=== PATIENT | male | born 1975 | race African-American/Black ===

== ENCOUNTER 2016-09-12 07:01 | Observation (INO) | payer SELFPAY ==
[2016-09-12] VITALS (13 sets, daily range): BP systolic 188–225; BP diastolic 115–148; PULSE 70–79; RESP 16–22; TEMP 97.8–98.4; O2SAT 93–99
[~2016-09-12] VITALS: Ht 175.3 cm; Wt 75.0 kg
[~2016-09-12 07:01] MED LIST: CLON-352 PO; HYDR12.56 PO; LISI2.5T55 PO
[2016-09-12] MEDS ORDERED: LABE300T PO (07:21)
[2016-09-12] MEDS ORDERED: CLON0.3T PO (07:21)
[2016-09-12] MEDS ORDERED: HYDR25TA35 PO (07:21)
--- NOTE | 2016-09-12 07:36 | PD ---
HPI Chief Complaint: Abnormal Results Time Seen by Provider: 07:31 Travel History International Travel<30 days: No Contact w/Intl Traveler<30days: No Traveled to known affect area: No History of Present Illness HPI 40-year-old male with ESRD on HD (,,), here claiming that he needs dialysis. His last dialysis was on which was 4 days ago. He was in [place] and is here visiting. He has no local physicians. He is complaining of some shortness of breath. No chest pain. No fevers or chills. PFSH Past Medical History Hx Anticoagulant Therapy: No Autoimmune Disease: No Cancer: No Cardiovascular Problems: Yes (HTN ) Chest Pain: Yes Congestive Heart Failure: Yes Diabetes: No Patient Takes Glucophage: No Dialysis: Yes (FISTULA IN LEFT ARM) Diminished Hearing: No Endocrine: No Genitourinary: Yes Hypertension: Yes Immune Disorder: No Musculoskeletal: No Neurologic: No Psychiatric: No Reproductive: No Respiratory: Yes Renal Failure: Yes Seizures: Yes Tetanus Vaccination: Unknown Influenza Vaccination: Yes Past Surgical History Cardiac Surgery: Yes ("TOOK FLUID IN HIS HEART"(PERICARDIOCENTHESIS??)) Other Surgery: Yes (SHUNT TO L ARM ) Social History Alcohol Use: No Tobacco Use: No (QUIT A YEAR AGO ) Substance Use: Yes (MARIJUANA SOCIALLY- YESTERDAY ) Allergies-Medications (Allergen,Severity, Reaction): Coded Allergies: No Known Allergies (Verified , 09/12/16) Reported Meds & Prescriptions Reported Meds & Active Scripts Active Reported Hydralazine (Hydralazine HCl) 25 Mg Tab 25 Mg PO BID Take with a meal Labetalol (Labetalol HCl) 300 Mg Tab 300 Mg PO BID Clonidine (Clonidine HCl) 0.3 Mg Tab 0.3 Mg PO TID Review of Systems Except as stated in HPI: all other systems reviewed are Neg Physical Exam Narrative GENERAL: Well-developed, well-nourished, comfortable, no acute distress. SKIN: Warm and dry. HEAD: Atraumatic. Normocephalic. EYES: Pupils equal and round. No scleral icterus. No injection or drainage. ENT: Mucous membranes pink and moist. NECK: Trachea midline. No JVD. CARDIOVASCULAR: Regular rate and rhythm. Left forearm dialysis fistula with thrill and bruit. RESPIRATORY: No accessory muscle use. Clear to auscultation. Breath sounds equal bilaterally. GASTROINTESTINAL: Abdomen soft, non-tender, nondistended. MUSCULOSKELETAL: No obvious deformities. No clubbing. No cyanosis. No edema. NEUROLOGICAL: Awake and alert. No obvious cranial nerve deficits. Motor grossly within normal limits. Normal speech. PSYCHIATRIC: Appropriate mood and affect; insight and judgment normal. Data Data Last Documented VS Vital Signs Date Time Temp Pulse Resp B/P Pulse Ox O2 Delivery O2 Flow Rate FiO2 09/12/16 07:28 75 Room Air 09/12/16 07:04 98.2 20 219/137 96 Orders Basic Metabolic Panel (Bmp) (09/12/16 07:34) Complete Blood Count With Diff (09/12/16 07:34) Prothrombin Time / Inr (Pt) (09/12/16 07:34) Act Partial Throm Time (Ptt) (09/12/16 07:34) Iv Access Insert/Monitor (09/12/16 07:34) Ecg Monitoring (09/12/16 07:34) Oximetry (09/12/16 07:34) Sodium Chloride 0.9% Flush (Ns Flush) (09/12/16 07:45) Chest, Single Ap (09/12/16 ) Protein Corrected Calcium(Pcc) (09/12/16 08:04) Labs Laboratory Tests Test 09/12/16 08:04 White Blood Count 6.2 TH/MM3 Red Blood Count 2.40 MIL/MM3 Hemoglobin 7.9 GM/DL Hematocrit 23.1 % Mean Corpuscular Volume 96.4 FL Mean Corpuscular Hemoglobin 32.9 PG Mean Corpuscular Hemoglobin 34.2 % Concent Red Cell Distribution Width 18.7 % Platelet Count 133 TH/MM3 Mean Platelet Volume 8.7 FL Neutrophils (%) (Auto) 69.2 % Lymphocytes (%) (Auto) 16.7 % Monocytes (%) (Auto) 5.8 % Eosinophils (%) (Auto) 7.2 % Basophils (%) (Auto) 1.1 % Neutrophils # (Auto) 4.3 TH/MM3 Lymphocytes # (Auto) 1.0 TH/MM3 Monocytes # (Auto) 0.4 TH/MM3 Eosinophils # (Auto) 0.5 TH/MM3 Basophils # (Auto) 0.1 TH/MM3 CBC Comment DIFF FINAL Differential Comment Prothrombin Time 11.5 SEC Prothromb Time International 1.0 RATIO Ratio Activated Partial 29.4 SEC Thromboplast Time Sodium Level 140 MEQ/L Potassium Level 5.7 MEQ/L Chloride Level 105 MEQ/L Carbon Dioxide Level 20.5 MEQ/L Anion Gap 15 MEQ/L Blood Urea Nitrogen 116 MG/DL Creatinine 15.19 MG/DL Estimat Glomerular Filtration 4 ML/MIN Rate Random Glucose 89 MG/DL Calcium Level 7.3 MG/DL Protein Corrected Calcium 7.4 MG/DL Total Protein 7.0 GM/DL MDM Medical Decision Making Medical Screen Exam Complete: Yes Emergency Medical Condition: Yes Medical Record Reviewed: Yes Differential Diagnosis ESRD, electrolyte abnormality Narrative Course Vital signs show heart rate 79, blood pressure 219/137, pulse ox 96% on room air , oral temp of 98.2F. CBC shows WBC 6.2, hemoglobin 7.9, hematocrit 23.1, platelets 133. BMP is remarkable for potassium 5.7, bicarbonate 20.5, BUN 116, creatinine 15.12 , GFR 4 Chest x-ray shows cardiomegaly with mild to moderate pulmonary congestion. Case discussed with on-call web developer programmer Dr. Manjarrez. He would like the patient to be admitted for overnight observation and will arrange for dialysis today. Case discussed with medical residents. The patient will be admitted to their service under Dr. Coulter. Patient was made aware of plan. Diagnosis Primary Impression: End stage renal disease Additional Impressions: Hyperkalemia Pulmonary edema Qualified Code: J81.0 - Acute pulmonary edema Admitting Information Admitting Physician Requests: Observation Mitul Harris MD Sep 12, 2016 07:36
[2016-09-12] MEDS ORDERED: SODIUM CHLORIDE 0.9% FLUSH 5 ML FLUSH IVF PRN ×2 (07:45→10:30)
--- NOTE | 2016-09-12 07:57 | RADRPT ---
EXAM DATE/TIME: 09/12/2016 07:34 [facility] COMPARISON: No previous studies available for comparison. INDICATIONS : Shortness of breath. MEDICAL HISTORY : None. SURGICAL HISTORY : None. ENCOUNTER: Initial ACUITY: 3 days PAIN SCORE: 0/10 LOCATION: Bilateral chest FINDINGS: The heart is markedly enlarged. There is generalized interstitial vascular prominence with developing airspace disease. There is no significant pleural effusion. Osseous structures are intact. CONCLUSION: Cardiomegaly with mild/moderate pulmonary congestion. Juanpablo Nixon MD on September 12, 2016 at 7:54 Board Certified Radiologist. This report was verified electronically.
[2016-09-12 08:28] LABS: AUTOMATED NEUTROPHIL # 4.3 TH/MM3 (1.8-7.7); BASOPHIL # 0.1 TH/MM3 (0-0.2); BASOPHIL % 1.1 % (0.0-2.0); EOSINOPHIL # 0.5 TH/MM3 (0-0.4); EOSINOPHIL % 7.2 % (0.0-4.0); HEMATOCRIT 23.1 % (39.0-51.0); HEMO FLAGS DIFF FINAL; LYMPH % 16.7 % (9.0-44.0); MEAN CELL VOLUME 96.4 FL (80.0-100.0); MEAN CORPUSCULAR HEMOGLOBIN 32.9 PG (27.0-34.0); MEAN CORPUSCULAR HGB CONC 34.2 % (32.0-36.0); MONO % 5.8 % (0.0-8.0); NEUT % 69.2 % (16.0-70.0); PLATELET COUNT 133 TH/MM3 (150-450); RED CELL DISTRIBUTION WIDTH 18.7 % (11.6-17.2); WHITE BLOOD COUNT 6.2 TH/MM3 (4.0-11.0)
[2016-09-12 08:37] LABS: APTT (PATIENT) 29.4 SEC (24.3-30.1); PROTHROMBIN TIME - PATIENT 11.5 SEC (9.8-11.6)
[2016-09-12 09:04] LABS: BICARBONATE 20.5 MEQ/L (21.0-32.0); POTASSIUM 5.7 MEQ/L (3.5-5.1)
[2016-09-12 09:32] LABS: CALCIUM-PROTEIN CORRECTED 7.4 MG/DL (8.5-10.1)
--- NOTE | 2016-09-12 10:03 | HHI.HP ---
[facility] Service Family Medicine Primary Care Physician Non-Staff Admission Diagnosis ESRD, hyperkalemia, pulmonary edema Diagnoses: International Travel<30 Days: No Contact w/Intl Traveler<30days: No Known Affected Area: No History of Present Illness This is a 40-year-old male with past medical history significant for uncontrolled hypertension that has resulted in end-stage renal disease. He currently receives dialysis on Monday, , and Saturdays. He has recently traveled from [facility] to [facility] to visit friends and relatives. He tried to get set up for dialysis as he was due for one on Monday, however the place that he was trying to get into would not take him until Monday. He says he has been over 4 days without his dialysis. For the last 2 days he's been feeling generalized weakness and his legs felt heavy. He has also noticed the last 2 days increased swelling in his lower extremities. He felt that he he needed dialysis sooner than Monday and decided to come into the hospital for evaluation. He reports that his blood pressure has been poorly controlled up until he started his 3 medications. Since being on history medications he says he does okay as long as he eats an appropriate diet with low salt content. (Scotty Leggett MD R2) Review of Systems Constitutional: DENIES: Fever, Weight gain, Weight loss, Dizziness Endocrine: DENIES: Heat/cold intolerance Eyes: DENIES: Blurred vision, Vision loss, Double Vision Ears, nose, mouth, throat: COMPLAINS OF: Running Nose, DENIES: Tinnitus, Hearing loss, Nasal discharge, Throat pain, Hoarseness Respiratory: COMPLAINS OF: Shortness of breath, DENIES: Cough, Wheezing, Sputum production Cardiovascular: COMPLAINS OF: Lower Extremity Edema, DENIES: Chest pain Gastrointestinal: DENIES: Abdominal pain, Black stools, Bloody stools, Constipation, Nausea, Vomiting Genitourinary: DENIES: Urinary incontinence, Dysuria Musculoskeletal: DENIES: Joint pain, Muscle aches, Back pain Integumentary: DENIES: Rash Hematologic/lymphatic: DENIES: Bruising, Lymphadenopathy Immunologic/allergic: DENIES: Eczema Neurologic: COMPLAINS OF: Localized weakness, DENIES: Abnormal gait, Headache , Seizures, Poor Balance Psychiatric: DENIES: Anxiety, Confusion, Depression (Scotty Leggett MD R2) Past Family Social History Past Medical History HTN End Stage Kidney Disease on Dialysis (9 years) Past Surgical History Fluid off his heart Fistula in the Left arm Reported Medications Reported Meds & Active Scripts Active Reported Hydralazine (Hydralazine HCl) 25 Mg Tab 25 Mg PO BID Take with a meal Labetalol (Labetalol HCl) 300 Mg Tab 300 Mg PO BID Clonidine (Clonidine HCl) 0.3 Mg Tab 0.3 Mg PO TID (Scotty Leggett MD R2) Allergies: Coded Allergies: No Known Allergies (Verified , 09/12/16) Active Ordered Medications Current Medications Medications (Trade) Dose Ordered Sig/Luis Daniel Route Start Time Stop Time Status Last Admin (NS Flush) 2 ml UNSCH PRN IVF 09/12/16 07:45 Family History HTN Diabetes Mellitus Social History Live in [place] here visiting Usual to [employer] Currently unemployed Smoke Marijuana Use to drink alcohol quit 13 year ago Use to smoke cigarettes quit 13 years ago (Scotty Leggett MD R2) Physical Exam Vital Signs Vital Signs Date Time Temp Pulse Resp B/P Pulse Ox O2 Delivery O2 Flow Rate FiO2 09/12/16 07:28 75 Room Air 09/12/16 07:04 98.2 79 20 219/137 96 Physical Exam GENERAL: Well-developed, well-nourished, comfortable, no acute distress. SKIN: Warm and dry. HEAD: Atraumatic. Normocephalic. EYES: Pupils equal and round. No scleral icterus. No injection or drainage. ENT: Mucous membranes pink and moist. NECK: Trachea midline. No JVD. CARDIOVASCULAR: Regular rate and rhythm, holosystolic murmur. Left forearm dialysis fistula with thrill and bruit. RESPIRATORY: Decreased auscultation in the lower lobes, some noticeable rhonchi in the lower lobes, upper lobes clear to auscultation bilaterally GASTROINTESTINAL: Abdomen soft, non-tender, nondistended. MUSCULOSKELETAL: No obvious deformities. No clubbing. No cyanosis. 2+ pitting edema in the lower extremities NEUROLOGICAL: Awake and alert. No obvious cranial nerve deficits. Motor grossly within normal limits. Normal speech. PSYCHIATRIC: Appropriate mood and affect; insight and judgment normal. Laboratory Laboratory Tests Test 09/12/16 08:04 White Blood Count 6.2 Red Blood Count 2.40 Hemoglobin 7.9 Hematocrit 23.1 Mean Corpuscular Volume 96.4 Mean Corpuscular Hemoglobin 32.9 Mean Corpuscular Hemoglobin 34.2 Concent Red Cell Distribution Width 18.7 Platelet Count 133 Mean Platelet Volume 8.7 Neutrophils (%) (Auto) 69.2 Lymphocytes (%) (Auto) 16.7 Monocytes (%) (Auto) 5.8 Eosinophils (%) (Auto) 7.2 Basophils (%) (Auto) 1.1 Neutrophils # (Auto) 4.3 Lymphocytes # (Auto) 1.0 Monocytes # (Auto) 0.4 Eosinophils # (Auto) 0.5 Basophils # (Auto) 0.1 CBC Comment DIFF FINAL Differential Comment Prothrombin Time 11.5 Prothromb Time International 1.0 Ratio Activated Partial 29.4 Thromboplast Time Sodium Level 140 Potassium Level 5.7 Chloride Level 105 Carbon Dioxide Level 20.5 Anion Gap 15 Blood Urea Nitrogen 116 Creatinine 15.19 Estimat Glomerular Filtration 4 Rate Random Glucose 89 Calcium Level 7.3 Protein Corrected Calcium 7.4 Total Protein 7.0 (Scotty Leggett MD R2) Result Diagram: 09/12/1680309/12/16 0804 Assessment and Plan Assessment and Plan This is a 40-year-old [place] male past medical history is negative for poorly controlled hypertension resulting in end-stage renal disease. Due for dialysis at this time Code Status Full code Discussed Condition With WDW: Dr. Coulter (Scotty Leggett MD R2) Attending Attestation THIS CASE WAS DISCUSSED WITH THE RESIDENT PHYSICIAN. I HAVE REVIEWED THE RECORD AND AGREE WITH THE ABOVE NOTE AND PLAN OF CARE WAS DISCUSSED. I HAVE AUTHORIZED THE ORDER FOR PLACEMENT IN OUT-PATIENT OBSERVATION STATUS. (Carlos Coulter MD) Problem List: (1) End stage renal disease Status: Chronic Plan: Patient is end-stage renal disease due to history of uncontrolled hypertension, recently traveled from [facility] to [place]. Receives dialysis on Monday, , Saturdays. Missed his Monday dialysis, and currently in need of dialysis at this time. * Consulted nephrology recommendations appreciated * Admit to observation * Plan for dialysis DONNIE (2) Hyperkalemia Status: Acute Plan: Per labs patient found to be hyperkalemic at 5.7. Has missed a round of dialysis, with end-stage renal disease. * Plan for correction with dialysis * Place on telemetry * Repeat BMP following dialysis * CBC, CMP ordered for the a.m. (3) Hypertension Status: Chronic Plan: Patient has a long-standing history of hypertension. * Continue home medications of hydralazine 25 mg by mouth twice a day * Continue home medication of clonidine 0.3 mg by mouth 3 times a day * Continue home medication of labetalol 30 mg by mouth twice a day (4) Pulmonary edema Status: Acute Plan: Per chest x-ray found to have pulmonary congestion bilaterally in the lower lobes. Congestion heard on physical exam. Continue to monitor with physical exam. * Plan for correction with dialysis (5) Nutrition, metabolism, and development symptoms Status: Acute Plan: Out of bed ad pilar. Vitals every 4 Placed on telemetry Renal diet Fluid restrict to 1.5 L DVT prophylaxis with SCDs Encourage incentive spirometry CODE STATUS: Full code Disposition: Upon improvement after dialysis (Scotty Leggett MD R2) Problem Qualifiers (1) Pulmonary edema: Qualified Code: J81.0 - Acute pulmonary edema Scotty Leggett MD R2 Sep 12, 2016 10:03 Carlos Coulter MD Sep 12, 2016 19:38
[2016-09-12] MEDS ORDERED: ACETAMINOPHEN 325 MG TAB PO PRN ×2 (10:15→10:30)
[2016-09-12] MEDS ORDERED: ONDANSETRON HCL 4 MG/2 ML VIAL IVP PRN (10:15)
[2016-09-12] MEDS ORDERED: SODIUM CHLORIDE 0.9% FLUSH 5 ML FLUSH FLUSH PRN (10:15)
[2016-09-12] MEDS ORDERED: NALOXONE HCL 0.4 MG/ML AMP IV PRN (10:15)
[2016-09-12] MEDS ORDERED: SODIUM CHLOR 0.9% 1000 ML INJ 1,000 ML IV PRN ×3 (10:17)
[2016-09-12] MEDS ORDERED: EPOETIN ALFA 10,000 UNITS/ML VIAL IV PRN (10:30)
[2016-09-12] MEDS ORDERED: HEPARIN SODIUM - IV 10,000 UNITS/10 ML VIAL IVF PRN (10:30)
[2016-09-12] MEDS ORDERED: ONDANSETRON HCL 4 MG/2 ML VIAL IV PRN (10:30)
[2016-09-12] MEDS ORDERED: NITROGLYCERIN 0.4 MG SL 25 TABS/BTL SL PRN (10:30)
[2016-09-12] MEDS ORDERED: MANNITOL 12.5 GM/50 ML VIAL IV PRN (10:30)
[2016-09-12] MEDS ORDERED: ALBUMIN HUMAN 25% 25 GM/100 ML BAGP IV PRN (10:30)
[2016-09-12] MEDS ORDERED: diphenhydrAMINE HCL 25 MG CAP PO PRN (10:30)
[2016-09-12] MEDS ORDERED: GELATIN 12 MM/7 MM FOAM TOP PRN (10:30)
[2016-09-12] MEDS: DOCUSATE SODIUM 100 MG CAP PO SCH ×2 (11:00→22:20)
--- NOTE | 2016-09-12 11:25 | PD.CONS ---
HPI Service Nephrology Consult Requested By Dr. Leggett Reason for Consult ESRD Primary Care Physician Non-Staff History of Present Illness Patient is a 40-year-old male with a history of end-stage renal disease due to hypertension who is from [facility] and is a visitor, he did not make any arrangements for hemodialysis and misses dialysis on Monday, today he came in now with increasing shortness of breath, his dialysis today was Monday, and Monday, chest x-ray done shows some pulmonary congestion, he does have peripheral edema present as well. Review of Systems Constitutional: COMPLAINS OF: Fatigue Respiratory: COMPLAINS OF: Shortness of breath Cardiovascular: COMPLAINS OF: Lower Extremity Edema Psychiatric: COMPLAINS OF: Anxiety Past Family Social History Allergies: Coded Allergies: No Known Allergies (Verified , 09/12/16) Past Medical History End-stage renal disease plan on hemodialysis Anemia Hypertension Secondary hyperparathyroidism Compliance issues Past Surgical History A fistula left forearm Reported Medications Reported Meds & Active Scripts Active Reported Hydralazine (Hydralazine HCl) 25 Mg Tab 25 Mg PO BID Take with a meal Labetalol (Labetalol HCl) 300 Mg Tab 300 Mg PO BID Clonidine (Clonidine HCl) 0.3 Mg Tab 0.3 Mg PO TID Family History He states there is father was on dialysis and the one brother has kidney issues Social History He denies smoking or alcohol use Physical Exam Vital Signs Vital Signs Date Time Temp Pulse Resp B/P Pulse Ox O2 Delivery O2 Flow Rate FiO2 09/12/16 07:28 75 Room Air 09/12/16 07:04 98.2 79 20 219/137 96 Physical Exam GENERAL: Well-nourished, well-developed patient. SKIN: Warm and dry. HEAD: Normocephalic. EYES: No scleral icterus. No injection or drainage. NECK: Supple, trachea midline. No JVD or lymphadenopathy. CARDIOVASCULAR: Regular rate and rhythm without murmurs, gallops, or rubs. RESPIRATORY: Breath sounds equal bilaterally. No accessory muscle use. GASTROINTESTINAL: Abdomen soft, non-tender, nondistended. EXTREMITIES: No cyanosis, 2 plus edema. Left forearm AV fistula NEUROLOGICAL: Awake, alert, and oriented x 3. Non-focal. Laboratory Laboratory Tests Test 09/12/16 08:04 White Blood Count 6.2 Red Blood Count 2.40 Hemoglobin 7.9 Hematocrit 23.1 Mean Corpuscular Volume 96.4 Mean Corpuscular Hemoglobin 32.9 Mean Corpuscular Hemoglobin 34.2 Concent Red Cell Distribution Width 18.7 Platelet Count 133 Mean Platelet Volume 8.7 Neutrophils (%) (Auto) 69.2 Lymphocytes (%) (Auto) 16.7 Monocytes (%) (Auto) 5.8 Eosinophils (%) (Auto) 7.2 Basophils (%) (Auto) 1.1 Neutrophils # (Auto) 4.3 Lymphocytes # (Auto) 1.0 Monocytes # (Auto) 0.4 Eosinophils # (Auto) 0.5 Basophils # (Auto) 0.1 CBC Comment DIFF FINAL Differential Comment Prothrombin Time 11.5 Prothromb Time International 1.0 Ratio Activated Partial 29.4 Thromboplast Time Sodium Level 140 Potassium Level 5.7 Chloride Level 105 Carbon Dioxide Level 20.5 Anion Gap 15 Blood Urea Nitrogen 116 Creatinine 15.19 Estimat Glomerular Filtration 4 Rate Random Glucose 89 Calcium Level 7.3 Protein Corrected Calcium 7.4 Total Protein 7.0 Result Diagram: 09/12/16 0804 09/12/16 0804 Imaging Last Impressions Chest X-Ray 09/12/16 0000 Signed Impressions: Service Date/Time: Monday, September 12, 2016 07:34 - CONCLUSION: Cardiomegaly with mild/moderate pulmonary congestion. Juanpablo Nixon MD Assessment and Plan Problem List: (1) End stage renal disease Plan: Patient will need to hemodialysis and this has been arranged for today will continue to monitor his progress and he will be On Monday, Monday and Monday schedule, he has not made outpatient arrangements and he will need to social and political studies professor help to set up hemodialysis \ seen at hemodialysis 5 L uf. (2) Hyperkalemia Plan: He will need to do hemodialysis (3) Pulmonary edema Plan: Hemodialysis will correct this issue as well (4) Hypertension Plan: Continue to monitor while in the hospital Problem Qualifiers (1) Pulmonary edema: Qualified Code: J81.0 - Acute pulmonary edema Cole Manjarrez MD Sep 12, 2016 11:25
[2016-09-12] MEDS: cloNIDine HCL 0.1 MG TAB PO PRN ×2 (11:30→16:00)
[2016-09-12] MEDS ORDERED: LABETALOL HCL 100 MG/20 ML VIAL IV PRN (12:00)
[2016-09-12] MEDS ORDERED: hydrALAZINE HCL 20 MG/ML VIAL IV PRN (12:00)
[2016-09-12] MEDS: cloNIDine HCL 0.3 MG TAB PO SCH ×2 (13:00→17:28)
[2016-09-12] MEDS ORDERED: LABETALOL HCL 300 MG TAB PO SCH (21:00)
[2016-09-12] MEDS ORDERED: SODIUM CHLORIDE 0.9% FLUSH 5 ML FLUSH FLUSH SCH (21:00)
[2016-09-12] MEDS ORDERED: hydrALAZINE HCL 25 MG TAB PO SCH (21:00)
--- NOTE | 2016-09-13 00:38 | PD.AMA ---
Against Medical Advice Note Discharge Disposition: Against Medical Advice Pt Condition on Discharge: Stable AMA Statement Patient Jasmyn Alicia has decided to leave the hospital against medical advice. This patient has the capacity to refuse care and understands the risks of leaving, including permanent disability and/or , and has had an opportunity to ask questions about his condition. The patient has been informed that he may return for care at any time, and follow up has been advised. Conor Casanova MD R1 Sep 13, 2016 00:38
== END 2016-09-13 00:07 | disposition left against medical advice (07) ==
LOC: NEPC 07:01 → NEDA 09:56 → NEPGCP 12:51
PROVIDERS: ADMIT Family Medicine; ATTEND Family Medicine
DX: N18.6 End stage renal disease (principal); I12.0 Hypertensive chronic kidney disease with stage 5 chronic kidney disease or end stage renal disease; E87.5 Hyperkalemia; J81.0 Acute pulmonary edema; I50.9 Heart failure, unspecified; F12.90 Cannabis use, unspecified, uncomplicated; Z99.2 Dependence on renal dialysis; Z87.891 Personal history of nicotine dependence; Z91.19 Patient's noncompliance with other medical treatment and regimen
CPT/HCPCS: 71010; 80048; 80074; 84155; 85025; 85610; 85730; 90935; 94150; 96374; 99285; G0378; J0360; Q4081; G0257

== ENCOUNTER 2016-09-14 12:12 | Emergency (ER) | payer SELFPAY ==
[~2016-09-14] VITALS: Ht 175.3 cm; Wt 75.0 kg
[~2016-09-14 12:12] MED LIST changes: -CLON-352 PO; +CLON0.3T PO; -HYDR12.56 PO; +HYDR25TA35 PO; +LABE300T PO; -LISI2.5T55 PO
[2016-09-14 12:15] VITALS: BP 197/116; PULSE 68; RESP 16; TEMP 97.7; O2SAT 95
--- NOTE | 2016-09-14 13:06 | PD ---
HPI Chief Complaint: Medical Clearance Time Seen by Provider: 12:59 Travel History International Travel<30 days: No Contact w/Intl Traveler<30days: No Traveled to known affect area: No History of Present Illness HPI This patient states that she was supposed to get dialyzed today at 10 AM and his [facility] but he didn't have a ride to get to [place] for dialysis so he came to the emergency room to get dialyzed. He is breathing well. No shortness of breath. Symptoms severity is mild PFSH Past Medical History Hx Anticoagulant Therapy: No Autoimmune Disease: No Blood Disorders: No Cancer: No Cardiovascular Problems: Yes (HTN ) Chest Pain: Yes Congestive Heart Failure: Yes Diabetes: No Dialysis: Yes (FISTULA IN LEFT ARM) Diminished Hearing: No Endocrine: No Genitourinary: Yes (ESRD) Hypertension: Yes Immune Disorder: No Musculoskeletal: No Neurologic: No Psychiatric: No Reproductive: No Respiratory: No Renal Failure: Yes Seizures: Yes Tetanus Vaccination: Unknown Influenza Vaccination: Yes Past Surgical History Cardiac Surgery: Yes ("TOOK FLUID IN HIS HEART"(PERICARDIOCENTHESIS??)) Other Surgery: Yes (SHUNT TO L ARM ) Social History Alcohol Use: No Tobacco Use: No (QUIT A YEAR AGO ) Substance Use: Yes (MARIJUANA daily) Allergies-Medications (Allergen,Severity, Reaction): Coded Allergies: No Known Allergies (Verified , 09/14/16) Reported Meds & Prescriptions Reported Meds & Active Scripts Active Reported Hydralazine (Hydralazine HCl) 25 Mg Tab 25 Mg PO BID Take with a meal Labetalol (Labetalol HCl) 300 Mg Tab 300 Mg PO BID Clonidine (Clonidine HCl) 0.3 Mg Tab 0.3 Mg PO TID Review of Systems HENT: No: Headaches Cardiovascular: No: Chest Pain or Discomfort Respiratory: No: Cough Gastrointestinal: No: Diarrhea Physical Exam Narrative RESPIRATORY: Respiratory effort unlabored, no retractions or use of accessory muscles. Breath sounds are clear and symmetric. SKIN: Inspection shows no rash or ulcers. Palpation shows no induration or nodules. Data Data Last Documented VS Vital Signs Date Time Temp Pulse Resp B/P Pulse Ox O2 Delivery O2 Flow Rate FiO2 09/14/16 12:43 18 20 09/14/16 12:15 97.7 197/116 95 MDM Medical Decision Making Medical Screen Exam Complete: Yes Emergency Medical Condition: Yes Medical Record Reviewed: Yes Differential Diagnosis Noncompliance, skipped dialysis Narrative Course I have reviewed the patient's electronic medical record. Patient left AGAINST MEDICAL ADVICE from the hospital yesterday after getting dialyzed on Monday I don't think the patient needs emergent dialysis right now. Patient had dialysis set up and he should call there and see if they can do it later today or switch to tomorrow. Patient immediately became hostile in his demeanor. Security escorted him out. I don't feel it is appropriate for him to ignore his outpatient arrangements and come to the emergency room and demand dialysis. Diagnosis Primary Impression: Malingering Additional Instructions: Follow up with their proper dialysis arrangements Med/Other Pt SpecificInfo: Other Disposition: 01 DISCHARGE HOME Condition: Stable Ko Ho MD Sep 14, 2016 13:05
== END 2016-09-14 13:28 | disposition home or self-care (01) ==
LOC: NEPB 12:12
DX: I12.0 Hypertensive chronic kidney disease with stage 5 chronic kidney disease or end stage renal disease (principal); N18.6 End stage renal disease; Z99.2 Dependence on renal dialysis; Z76.5 Malingerer [conscious simulation]
CPT/HCPCS: 99282

== ENCOUNTER 2016-09-16 05:41 | Emergency (ER) | payer SELFPAY ==
[2016-09-16 05:44] VITALS: BP 228/126; PULSE 68; RESP 20; TEMP 97.9; O2SAT 96
[2016-09-16] MEDS ORDERED: HYDR50TA15 PO (17:43)
== END 2016-09-16 07:41 | disposition left against medical advice (07) ==
LOC: NEPC 05:41
DX: I10 Essential (primary) hypertension (principal)
CPT/HCPCS: 99281

== ENCOUNTER 2016-09-16 08:28 | Inpatient (IN) | payer SELFPAY ==
[~2016-09-16] VITALS: Ht 172.7 cm; Wt 80.0 kg
[2016-09-16 08:30] VITALS: BP 204/119; PULSE 64; RESP 20; TEMP 97.5; O2SAT 95
[2016-09-16 09:30] VITALS: BP 201/123; PULSE 63; RESP 17; O2SAT 95
--- NOTE | 2016-09-16 09:34 | RADRPT ---
EXAM DATE/TIME: 09/16/2016 09:19 [facility] COMPARISON: CHEST SINGLE AP, September 12, 2016, 7:34. INDICATIONS : Chest pain and shortness of breath. MEDICAL HISTORY : None. SURGICAL HISTORY : None. ENCOUNTER: Initial ACUITY: 2 days PAIN SCORE: 4/10 LOCATION: Chest, midline. FINDINGS: PA and lateral views of the chest. Decrease in bilateral right greater than left perihilar opacity. P ersistent cardiac silhouette enlargement. No evidence of pleural effusion or pneumothorax. CONCLUSION: Decrease in bilateral pulmonary opacity likely representing decreased pulmonary edema. Cardiac silhou ette enlargement again noted. Humberto Emanuel MD on September 16, 2016 at 9:31 Board Certified Radiologist. This report was verified electronically.
[2016-09-16 09:48] LABS: AUTOMATED NEUTROPHIL # 4.1 TH/MM3 (1.8-7.7); BASOPHIL # 0.1 TH/MM3 (0-0.2); BASOPHIL % 1.1 % (0.0-2.0); EOSINOPHIL # 0.1 TH/MM3 (0-0.4); EOSINOPHIL % 2.4 % (0.0-4.0); HEMATOCRIT 25.9 % (39.0-51.0); HEMO FLAGS DIFF FINAL; LYMPH % 15.5 % (9.0-44.0); LYMPHOCYTE # 0.8 TH/MM3 (1.0-4.8); MEAN CELL VOLUME 94.6 FL (80.0-100.0); MEAN CORPUSCULAR HEMOGLOBIN 31.9 PG (27.0-34.0); MEAN CORPUSCULAR HGB CONC 33.7 % (32.0-36.0); MONO % 5.8 % (0.0-8.0); NEUT % 75.2 % (16.0-70.0); PLATELET COUNT 176 TH/MM3 (150-450); RED BLOOD COUNT 2.74 MIL/MM3 (4.50-5.90); RED CELL DISTRIBUTION WIDTH 17.5 % (11.6-17.2); WHITE BLOOD COUNT 5.4 TH/MM3 (4.0-11.0)
[2016-09-16] MEDS ORDERED: LABETALOL HCL 300 MG TAB PO ONE (10:00)
[2016-09-16] MEDS ORDERED: cloNIDine HCL 0.1 MG TAB PO ONE (10:00)
[2016-09-16] MEDS ORDERED: hydrALAZINE HCL 25 MG TAB PO ONE (10:00)
[2016-09-16] MEDS ORDERED: SODIUM CHLOR 0.9% 1000 ML INJ 1,000 ML IV ONE (10:15)
[2016-09-16 11:07] LABS: BICARBONATE 18.3 MEQ/L (21.0-32.0)
[2016-09-16 11:15] LABS: POTASSIUM 7.8 MEQ/L (3.5-5.1)
[2016-09-16] MEDS ORDERED: SODIUM CHLOR 0.9% 1000 ML INJ 1,000 ML IV PRN ×3 (11:21)
[2016-09-16] MEDS ORDERED: GELATIN 12 MM/7 MM FOAM TOP PRN (11:30)
[2016-09-16] MEDS ORDERED: CALCIUM GLUCONATE 10% 1 GM/10 ML VIAL IV PUSH ONE (11:30)
[2016-09-16] MEDS ORDERED: SODIUM CHLORIDE 0.9% FLUSH 5 ML FLUSH IVF PRN (11:30)
[2016-09-16] MEDS ORDERED: ALBUMIN HUMAN 25% 25 GM/100 ML BAGP IV PRN (11:30)
[2016-09-16] MEDS ORDERED: ACETAMINOPHEN 325 MG TAB PO PRN (11:30)
[2016-09-16] MEDS ORDERED: NITROGLYCERIN 0.4 MG SL 25 TABS/BTL SL PRN (11:30)
[2016-09-16] MEDS ORDERED: SODIUM BICARBONATE 8.4% INJ 50 MEQ/50 ML SYR IV PUSH ONE (11:30)
[2016-09-16] MEDS ORDERED: MANNITOL 12.5 GM/50 ML VIAL IV PRN (11:30)
[2016-09-16] MEDS ORDERED: EPOETIN ALFA 10,000 UNITS/ML VIAL IV PRN (11:30)
[2016-09-16] MEDS ORDERED: DEXTROSE 50% IN WATER 50 ML SYRINGE IV ONE (11:30)
[2016-09-16] MEDS ORDERED: SODIUM POLYSTYRENE SULFONATE SUSP 15 GM/60 ML CUP PO ONE (11:30)
[2016-09-16] MEDS ORDERED: RESP: ALBUTEROL 2.5 MG/3 ML NEB (SCH) NEB ONE (11:30)
[2016-09-16] MEDS ORDERED: ONDANSETRON HCL 4 MG/2 ML VIAL IV PRN (11:30)
[2016-09-16] MEDS ORDERED: diphenhydrAMINE HCL 25 MG CAP PO PRN (11:30)
[2016-09-16] MEDS ORDERED: HEPARIN SODIUM - IV 10,000 UNITS/10 ML VIAL IVF PRN (11:30)
[2016-09-16] MEDS ORDERED: INSULIN HUMAN REGULAR 1,000 UNITS/10 ML VIAL IVP ONE (11:30)
--- NOTE | 2016-09-16 11:48 | PD ---
HPI Chief Complaint: Edema Time Seen by Provider: 08:40 Travel History International Travel<30 days: No Contact w/Intl Traveler<30days: No Traveled to known affect area: No History of Present Illness HPI Patient is a 40-year-old male with history of end-stage renal disease who comes in saying he needs dialysis. He says he has not been dialyzed since Monday. He says he is from [place] and had arranged to be dialyzed in [facility], however he has no way of getting there. He says he is visiting his mother, who lives near the hospital, so he was able to walk here. He says he feels a little short of breath and has noticed swelling of his legs. He denies any other complaints. PFSH Past Medical History Hx Anticoagulant Therapy: No Autoimmune Disease: No Blood Disorders: No Cancer: No Cardiovascular Problems: Yes (HTN ) Chest Pain: Yes Congestive Heart Failure: Yes Diabetes: No Dialysis: Yes (SHUNT IN LEFT ARM) Diminished Hearing: No Endocrine: No Genitourinary: Yes (ESRD) Hypertension: Yes Immune Disorder: No Musculoskeletal: No Neurologic: No Psychiatric: No Reproductive: No Respiratory: No Renal Failure: Yes Seizures: Yes Past Surgical History Cardiac Surgery: Yes ("TOOK FLUID IN HIS HEART"(PERICARDIOCENTHESIS??)) Other Surgery: Yes (SHUNT TO L ARM ) Social History Alcohol Use: No Tobacco Use: No Substance Use: No (DENIES) Allergies-Medications (Allergen,Severity, Reaction): Coded Allergies: No Known Allergies (Verified , 09/16/16) Reported Meds & Prescriptions Reported Meds & Active Scripts Active Reported Hydralazine (Hydralazine HCl) 50 Mg Tab 50 Mg PO TID Take with a meal Labetalol (Labetalol HCl) 300 Mg Tab 300 Mg PO BID Clonidine (Clonidine HCl) 0.3 Mg Tab 0.3 Mg PO TID Review of Systems Except as stated in HPI: all other systems reviewed are Neg General / Constitutional: No: Fever, Chills Eyes: No: Blurred Vision HENT: No: Headaches, Lightheadedness Cardiovascular: No: Chest Pain or Discomfort Respiratory: Positive: Shortness of Breath Gastrointestinal: No: Nausea, Vomiting Musculoskeletal: Positive: Edema, No: Pain Skin: No Rash, No Change in Pigmentation Neurologic: No: Weakness, Dizziness Physical Exam Narrative GENERAL: Awake and alert in no acute distress. SKIN: Warm and dry. HEAD: Atraumatic. Normocephalic. EYES: Pupils equal and round. No scleral icterus. ENT: Mucous membranes pink and moist. NECK: Trachea midline. No JVD. CARDIOVASCULAR: Regular rate and rhythm. No murmur appreciated. RESPIRATORY: No accessory muscle use. Occasional crackles in both lungs. Breath sounds equal bilaterally. GASTROINTESTINAL: Abdomen soft, non-tender, nondistended. MUSCULOSKELETAL: No obvious deformities. No clubbing. No cyanosis. 2+ edema bilateral lower extremities. NEUROLOGICAL: Awake and alert. No obvious cranial nerve deficits. Motor grossly within normal limits. Normal speech. PSYCHIATRIC: Appropriate mood and affect; insight and judgment normal. Data Data Last Documented VS Vital Signs Date Time Temp Pulse Resp B/P Pulse Ox O2 Delivery O2 Flow Rate FiO2 09/16/16 09:30 63 17 201/123 95 Room Air 09/16/16 08:30 97.5 Orders Chest, Pa & Lat (09/16/16 ) Complete Blood Count With Diff (09/16/16 08:51) Basic Metabolic Panel (Bmp) (09/16/16 08:51) Labetalol (Trandate) (09/16/16 10:00) Hydralazine (Apresoline) (09/16/16 10:00) Clonidine (Catapres) (09/16/16 10:00) Diet Renal (09/16/16 Breakfast) Sodium Chlor 0.9% 1000 Ml Inj (Ns 1000 M (09/16/16 10:15) Protein Corrected Calcium(Pcc) (09/16/16 10:30) Electrocardiogram (09/16/16 ) Insulin Human Regular Inj (Novolin R Inj (09/16/16 11:30) Sodium Polysty Sulfate Liq (Kayexalate L (09/16/16 11:30) Dextrose 50% In Lia (Syr) Inj (D50w (Syr (09/16/16 11:30) Sodium Bicarbonate 8.4% Inj (Sodium Bica (09/16/16 11:30) Albuterol Neb (Albuterol Neb) (09/16/16 11:30) Calcium Gluconate Inj (Calcium Gluconate (09/16/16 11:30) ^ Blood Flow Rate (09/16/16 11:21) ^ Dialysate Flow Rate (09/16/16 11:21) ^ Dialyzer (09/16/16 11:21) ^ Concentrate (09/16/16 11:21) ^ Acid Concentrate (09/16/16 11:21) ^ Length Of Dialysis (09/16/16 11:21) ^ Frequency Of Dialysis (09/16/16 11:21) ^ Dialysis Obtain (09/16/16 11:21) ^ Needle Size (09/16/16 11:21) ^ Dialysis Schedule (09/16/16 11:21) Resp Oxygen Satish C Titrat 1-4 L (09/16/16 ) ^ Dialysis Weight (09/16/16 11:21) ^ Obtain As Needed (09/16/16 11:21) Sodium Chlor 0.9% 1000 Ml Inj (Ns 1000 M (09/16/16 11:21) Heparin Inj (Heparin Inj) (09/16/16 11:30) Sodium Chlor 0.9% 1000 Ml Inj (Ns 1000 M (09/16/16 11:21) Sodium Chlor 0.9% 1000 Ml Inj (Ns 1000 M (09/16/16 11:21) Mannitol Inj (Mannitol Inj) (09/16/16 11:30) Albumin 25% Inj (Albumin 25% Inj) (09/16/16 11:30) Sodium Chloride 0.9% Flush (Ns Flush) (09/16/16 11:30) Ondansetron Inj (Zofran Inj) (09/16/16 11:30) Acetaminophen (Tylenol) (09/16/16 11:30) Diphenhydramine (Benadryl) (09/16/16 11:30) Nitroglycerin Sl (Nitrostat Sl) (09/16/16 11:30) Clonidine (Catapres) (09/16/16 11:30) Epoetin Joe Inj (Epogen Inj) (09/16/16 11:30) Gelatin 12 Mm/7 Mm Top (Gelfoam 12 Mm/7 (09/16/16 11:30) [employer] / Telemetry MONA.Q8H (09/16/16 11:29) Admit Order (Ed Use Only) (09/16/16 ) Consult Nephrology (09/16/16 ) Basic Metabolic Panel (Bmp) (09/16/16 17:00) Vital Signs (Adult) MONA.Q4H (09/16/16 11:55) Clonidine (Catapres) (09/16/16 13:00) Hydralazine (Apresoline) (09/16/16 21:00) Labetalol (Trandate) (09/16/16 21:00) Labs Laboratory Tests Test 09/16/16 09/16/16 09:30 10:30 White Blood Count 5.4 TH/MM3 Red Blood Count 2.74 MIL/MM3 Hemoglobin 8.7 GM/DL Hematocrit 25.9 % Mean Corpuscular Volume 94.6 FL Mean Corpuscular Hemoglobin 31.9 PG Mean Corpuscular Hemoglobin 33.7 % Concent Red Cell Distribution Width 17.5 % Platelet Count 176 TH/MM3 Mean Platelet Volume 8.5 FL Neutrophils (%) (Auto) 75.2 % Lymphocytes (%) (Auto) 15.5 % Monocytes (%) (Auto) 5.8 % Eosinophils (%) (Auto) 2.4 % Basophils (%) (Auto) 1.1 % Neutrophils # (Auto) 4.1 TH/MM3 Lymphocytes # (Auto) 0.8 TH/MM3 Monocytes # (Auto) 0.3 TH/MM3 Eosinophils # (Auto) 0.1 TH/MM3 Basophils # (Auto) 0.1 TH/MM3 CBC Comment DIFF FINAL Differential Comment Sodium Level 132 MEQ/L Potassium Level 7.8 MEQ/L Chloride Level 99 MEQ/L Carbon Dioxide Level 18.3 MEQ/L Anion Gap 15 MEQ/L Blood Urea Nitrogen 144 MG/DL Creatinine 17.32 MG/DL Estimat Glomerular Filtration 4 ML/MIN Rate Random Glucose 73 MG/DL Calcium Level 7.0 MG/DL Protein Corrected Calcium 7.0 MG/DL Total Protein 7.3 GM/DL [facility] Medical Decision Making Medical Screen Exam Complete: Yes Emergency Medical Condition: Yes Medical Record Reviewed: Yes Interpretation(s) ECG concerning for peaked T waves. Differential Diagnosis Hyperkalemia versus fluid overload versus noncompliance Narrative Course Patient is a 40-year-old male with history of end-stage renal disease who has not been dialyzed since Monday. Exam shows bilateral pitting edema of the lower extremities. IV established, labs sent. Chest x-ray does show some edema and lungs. Spoke with Dr. Manjarrez of nephrology who says patient needs to be admitted to have dialysis done. He'll arrange for this. Labs came back showing a potassium of 7.8. Dr. Manjarrez called and informed of the emergent need for dialysis, he will arrange. Patient treated medically with albuterol, sodium bicarbonate, insulin, dextrose , calcium, Kayexalate. Patient admitted for further management. Diagnosis Primary Impression: Hyperkalemia Additional Impression: End stage renal disease Admitting Information Admitting Physician Requests: Admit Julia Shafer MD Sep 16, 2016 11:48
[2016-09-16 12:02] VITALS: BP 202/117; PULSE 66; RESP 18
[2016-09-16] MEDS: cloNIDine HCL 0.3 MG TAB PO SCH ×2 (13:00→19:38)
--- NOTE | 2016-09-16 13:27 | HHI.HP ---
[facility] Service [facility] Primary Care Physician No Primary Care Physician Admission Diagnosis Hyperkalemia Diagnoses: (1) Hyperkalemia Diagnosis: Principal (2) End stage renal disease Diagnosis: Principal Chief Complaint: ' I missed my dialysis'. Travel History International Travel<30 Days: No Contact w/Intl Traveler <30 Da: No Traveled to Known Affected Are: No History of Present Illness patient is a 40 y/o male with history of ESRD- on HD -on // schedule, presented to ER stating that he missed his HD on Monday. he was somewhat lethargic at the time of my evaluation but reportedly he's coming from [place] and is supposed to have his HD in [facility]. he denied any pain at the time of my evaluation and was in no acute distress. he was found to have hyperkalemia at the presentation to ER. Review of Systems Constitutional: DENIES: Fever, Weight loss, Chills, Night Sweats Eyes: DENIES: Blurred vision, Diplopia, Vision loss, Double Vision Ears, nose, mouth, throat: DENIES: Tinnitus, Vertigo, Throat pain, Epistaxis Respiratory: DENIES: Apneas, Cough, Snoring, Wheezing, Hemoptysis, Sputum production, Shortness of breath Cardiovascular: DENIES: Chest pain, Palpitations, Syncope, Dyspnea on Exertion , PND, Lower Extremity Edema, Orthopnea, Claudication Gastrointestinal: DENIES: Abdominal pain, Black stools, Bloody stools, Constipation, Diarrhea, Nausea, Vomiting, Difficulty Swallowing, Anorexia Genitourinary: DENIES: Urinary frequency, Urgency, Hematuria, Dysuria Musculoskeletal: DENIES: Joint pain, Muscle aches, Stiffness, Joint Swelling Integumentary: DENIES: Rash Neurologic: DENIES: Abnormal gait, Headache, Localized weakness, Paresthesias, Seizures, Speech Problems, Tremor, Poor Balance Psychiatric: DENIES: Anxiety, Confusion, Mood changes, Depression, Hallucinations, Agitation, Suicidal Ideation, Homicidal Ideation, Delusions Past Family Social History Past Medical History ESRD-on HD hypertension Past Surgical History pericardiocentesis shunt placement Reported Medications Hydralazine (Hydralazine HCl) 25 Mg Tab 25 Mg PO BID Take with a meal Labetalol (Labetalol HCl) 300 Mg Tab 300 Mg PO BID Clonidine (Clonidine HCl) 0.3 Mg Tab 0.3 Mg PO TID Allergies: Coded Allergies: No Known Allergies (Verified , 09/16/16) Active Ordered Medications Current Medications Labetalol HCl (Trandate) 300 mg ONCE ONCE PO Last administered on 09/16/16 12: 12; Start 09/16/16 at 10:00; Stop 09/16/16 at 10:01; Status DC Hydralazine HCl (Apresoline) 25 mg ONCE ONCE PO Last administered on 09/16/16 10:21; Start 09/16/16 at 10:00; Stop 09/16/16 at 10:01; Status DC Clonidine 0.3 mg 0.3 mg ONCE ONCE PO Last administered on 09/16/16 10:22; Start 09/16/16 at 10:00; Stop 09/16/16 at 10:01; Status DC Sodium Chloride (NS 1000 ml Inj) 1,000 ml @ 999 mls/hr BOLUS ONCE IV Last administered on 09/16/16 10:32; Start 09/16/16 at 10:15; Stop 09/16/16 at 11:15; Status DC Insulin Human Regular (NovoLIN R INJ) 6 units ONCE ONCE IVP Last administered on 09/16/16 11:48; Start 09/16/16 at 11:30; Stop 09/16/16 at 11:31; Status DC Sodium Polystyrene Sulfonate (Kayexalate Liq) 15 gm ONCE ONCE PO Last administered on 09/16/16 11:49; Start 09/16/16 at 11:30; Stop 09/16/16 at 11:31; Status DC Dextrose (D50w (Syr) Inj) 25 ml ONCE ONCE IV Last administered on 09/16/16 11: 47; Start 09/16/16 at 11:30; Stop 09/16/16 at 11:31; Status DC Sodium Bicarbonate (Sodium Bicarbonate 8.4% Inj) 50 meq ONCE ONCE IV PUSH Last administered on 09/16/16 11:47; Start 09/16/16 at 11:30; Stop 09/16/16 at 11: 31; Status DC Albuterol Sulfate (Albuterol Neb) 2.5 mg ONCE ONCE NEB Last administered on 11:55; Start 09/16/16 at 11:30; Stop 09/16/16 at 11:31; Status DC Calcium Gluconate 1 gm 1 gm ONCE ONCE IV PUSH Last administered on 09/16/16 11 :47; Start 09/16/16 at 11:30; Stop 09/16/16 at 11:31; Status DC Sodium Chloride (NS 1000 ml Inj) 1,000 ml @ 0 mls/hr Q0M PRN IV For Prime & Rinse Back; Start 09/16/16 at 11:21 Heparin Sodium (Porcine) 8000 units 8,000 units UNSCH PRN IVF WITH DIALYSIS; Start 09/16/16 at 11:30 Sodium Chloride 1,000 ml @ 200 mls/hr Q5H PRN IV WITH DIALYSIS; Start 09/16/16 at 11:21 Sodium Chloride (NS 1000 ml Inj) 1,000 ml @ 0 mls/hr Q0M PRN IV WITH DIALYSIS; Start 09/16/16 at 11:21 Mannitol (Mannitol Inj) 12.5 gm UNSCH PRN IV WITH DIALYSIS; Start 09/16/16 at 11 :30 Albumin Human (Albumin 25% Inj) 25 gm UNSCH PRN IV WITH DIALYSIS; Start at 11:30 IV Flush (NS Flush) 5 ml UNSCH PRN IVF WITH DIALYSIS Last administered on 11:47; Start 09/16/16 at 11:30 Ondansetron HCl (Zofran Inj) 4 mg UNSCH PRN IV WITH DIALYSIS; Start 09/16/16 at 11:30 Acetaminophen (Tylenol) 650 mg UNSCH PRN PO for headach, pain, temp > 101F; Start 09/16/16 at 11:30 Diphenhydramine HCl (Benadryl) 25 mg UNSCH PRN PO for hives/itching/anaphylaxis ; Start 09/16/16 at 11:30 Nitroglycerin (Nitrostat Sl) 0.4 mg UNSCH PRN SL CHEST PAIN; Start 09/16/16 at 11:30 Clonidine (Catapres) 0.1 mg UNSCH PRN PO for BP > 180/100 X 2 readings; Start 09/16/16 at 11:30 Epoetin Joe (Epogen Inj) 10,000 units UNSCH PRN IV WITH DIALYSIS; Start at 11:30 Gelatin (Gelfoam 12 Mm/7 Mm Top) 1 foam UNSCH PRN TOP SEE LABEL COMMENTS; Start 09/16/16 at 11:30 Clonidine (Catapres) 0.3 mg TID PO ; Start 09/16/16 at 13:00 Hydralazine HCl (Apresoline) 25 mg BID PO ; Start 09/16/16 at 21:00 Labetalol HCl (Trandate) 300 mg BID PO ; Start 09/16/16 at 21:00 Family History not relevant to this admission. Social History no smoking or drinking. smokes Marijuana. Physical Exam Vital Signs Vital Signs Date Time Temp Pulse Resp B/P Pulse Ox O2 Delivery O2 Flow Rate FiO2 09/16/16 12:02 66 18 202/117 Nasal Cannula 2.0 09/16/16 09:30 63 17 201/123 95 Room Air 09/16/16 08:30 97.5 64 20 204/119 95 Room Air Physical Exam GENERAL: This is a well-nourished, well-developed patient, in no apparent distress. HEAD: Atraumatic. Normocephalic. No temporal or scalp tenderness. EYES: Pupils equal round and reactive. Extraocular motions intact. No scleral icterus. No injection or drainage. ENT: Nose without bleeding, purulent drainage or septal hematoma. Throat without erythema, tonsillar hypertrophy or exudate. Uvula midline. Airway patent. NECK: Trachea midline. No JVD or lymphadenopathy. Supple, nontender, no meningeal signs. CARDIOVASCULAR: Regular rate and rhythm without murmurs, gallops, or rubs. RESPIRATORY: Clear to auscultation. Breath sounds equal bilaterally. No wheezes , rales, or rhonchi. GASTROINTESTINAL: Abdomen soft, non-tender, nondistended. No hepato-splenomegaly , or palpable masses. No guarding. MUSCULOSKELETAL: bilateral pedal edema. NEUROLOGICAL: somewhat lethargic but easily arousable. Laboratory Laboratory Tests Test 09/16/16 09/16/16 09:30 10:30 White Blood Count 5.4 Red Blood Count 2.74 Hemoglobin 8.7 Hematocrit 25.9 Mean Corpuscular Volume 94.6 Mean Corpuscular Hemoglobin 31.9 Mean Corpuscular Hemoglobin 33.7 Concent Red Cell Distribution Width 17.5 Platelet Count 176 Mean Platelet Volume 8.5 Neutrophils (%) (Auto) 75.2 Lymphocytes (%) (Auto) 15.5 Monocytes (%) (Auto) 5.8 Eosinophils (%) (Auto) 2.4 Basophils (%) (Auto) 1.1 Neutrophils # (Auto) 4.1 Lymphocytes # (Auto) 0.8 Monocytes # (Auto) 0.3 Eosinophils # (Auto) 0.1 Basophils # (Auto) 0.1 CBC Comment DIFF FINAL Differential Comment Sodium Level 132 Potassium Level 7.8 Chloride Level 99 Carbon Dioxide Level 18.3 Anion Gap 15 Blood Urea Nitrogen 144 Creatinine 17.32 Estimat Glomerular Filtration 4 Rate Random Glucose 73 Calcium Level 7.0 Protein Corrected Calcium 7.0 Total Protein 7.3 Result Diagram: 09/16/16 0930 09/16/16 1030 Imaging Last Impressions Chest X-Ray 09/16/16 0000 Signed Impressions: Service Date/Time: Friday, September 16, 2016 09:19 - CONCLUSION: Decrease in bilateral pulmonary opacity likely representing decreased pulmonary edema. Cardiac silhouette enlargement again noted. Humberto Emanuel MD Assessment and Plan Assessment and Plan A/P - ESRD- on HD ( M/W/F); missed his HD/ with hyperkalemia and hypocalcemia received insulin/ bicarbonate/ Kayexalate and IV calcium- nephrology consulted and he's going to HD today. will monitor the electrolytes. -hypertension; resume home meds -anemia of chronic disease- on Epogen -DVT prophylaxis with SCD's Discussed Condition With ER physician and the patient. Physician Certification 2 Midnight Certification Type: Admission for Inpatient Services Order for Inpatient Services The services are ordered in accordance with Medicare regulations or non- Medicare payer requirements, as applicable. In the case of services not specified as inpatient-only, they are appropriately provided as inpatient services in accordance with the 2-midnight benchmark. Estimated LOS (days): 2 days is the estimated time the patient will need to remain in the hospital, assuming treatment plan goals are met and no additional complications. Post-Hospital Plan: Home Froy Bhat MD Sep 16, 2016 13:26
--- NOTE | 2016-09-16 13:52 | PD.CONS ---
HPI Service Nephrology Consult Requested By Dr. Shafer Reason for Consult ESRD with Hyperkalemia Primary Care Physician No Primary Care Physician History of Present Illness 40 year old Black male with ESRD, Hypertension who is new to area from [place] and missed his dialysis again, he was just released from the hospital and stated he has no transportation, he has shortness of breath, his potassium was elevated at 7.8 Review of Systems Constitutional: COMPLAINS OF: Fatigue Respiratory: COMPLAINS OF: Shortness of breath Cardiovascular: COMPLAINS OF: Lower Extremity Edema Past Family Social History Allergies: Coded Allergies: No Known Allergies (Verified , 09/16/16) Past Medical History ESRD AVF Hypertension Hyperkalemia CHF Past Surgical History AVF rt forearm Pericardiocentesis Reported Medications Reported Meds & Active Scripts Active Reported Hydralazine (Hydralazine HCl) 25 Mg Tab 25 Mg PO BID Take with a meal Labetalol (Labetalol HCl) 300 Mg Tab 300 Mg PO BID Clonidine (Clonidine HCl) 0.3 Mg Tab 0.3 Mg PO TID Active Ordered Medications Current Medications Medications (Trade) Dose Ordered Sig/Luis Daniel Route Start Time Stop Time Status Last Admin (NS 1000 ml Inj) 1,000 ml @ 0 mls/hr Q0M PRN IV 09/16/16 11:21 Heparin Sodium (Porcine) 8000 units 8,000 units UNSCH PRN IVF 09/16/16 11:30 Sodium Chloride 1,000 ml @ 200 mls/hr Q5H PRN IV 09/16/16 11:21 (NS 1000 ml Inj) 1,000 ml @ 0 mls/hr Q0M PRN IV 09/16/16 11:21 (Mannitol Inj) 12.5 gm UNSCH PRN IV 09/16/16 11:30 (Albumin 25% Inj) 25 gm UNSCH PRN IV 09/16/16 11:30 (NS Flush) 5 ml UNSCH PRN IVF 09/16/16 11:30 09/16/16 11:47 (Zofran Inj) 4 mg UNSCH PRN IV 09/16/16 11:30 (Tylenol) 650 mg UNSCH PRN PO 09/16/16 11:30 (Benadryl) 25 mg UNSCH PRN PO 09/16/16 11:30 (Nitrostat Sl) 0.4 mg UNSCH PRN SL 09/16/16 11:30 (Catapres) 0.1 mg UNSCH PRN PO 09/16/16 11:30 (Epogen Inj) 10,000 units UNSCH PRN IV 09/16/16 11:30 (Gelfoam 12 Mm/7 Mm Top) 1 foam UNSCH PRN TOP 09/16/16 11:30 (Catapres) 0.3 mg TID PO 09/16/16 13:00 (Apresoline) 25 mg BID PO 09/16/16 21:00 (Trandate) 300 mg BID PO 09/16/16 21:00 Family History noncontributory Social History smokes Marijuana Physical Exam Vital Signs Vital Signs Date Time Temp Pulse Resp B/P Pulse Ox O2 Delivery O2 Flow Rate FiO2 09/16/16 12:02 66 18 202/117 Nasal Cannula 2.0 09/16/16 09:30 63 17 201/123 95 Room Air 09/16/16 08:30 97.5 64 20 204/119 95 Room Air Physical Exam GENERAL: Well-nourished, well-developed patient. SKIN: Warm and dry. HEAD: Normocephalic. EYES: No scleral icterus. No injection or drainage. NECK: Supple, trachea midline. No JVD or lymphadenopathy. CARDIOVASCULAR: Regular rate and rhythm without murmurs, gallops, or rubs. RESPIRATORY: Breath sounds diminished at bases GASTROINTESTINAL: Abdomen soft, non-tender, nondistended. EXTREMITIES: No cyanosis, 2 plus edema. NEUROLOGICAL: Awake, alert, and oriented x 3. Non-focal. Laboratory Laboratory Tests Test 09/16/16 09/16/16 09:30 10:30 White Blood Count 5.4 Red Blood Count 2.74 Hemoglobin 8.7 Hematocrit 25.9 Mean Corpuscular Volume 94.6 Mean Corpuscular Hemoglobin 31.9 Mean Corpuscular Hemoglobin 33.7 Concent Red Cell Distribution Width 17.5 Platelet Count 176 Mean Platelet Volume 8.5 Neutrophils (%) (Auto) 75.2 Lymphocytes (%) (Auto) 15.5 Monocytes (%) (Auto) 5.8 Eosinophils (%) (Auto) 2.4 Basophils (%) (Auto) 1.1 Neutrophils # (Auto) 4.1 Lymphocytes # (Auto) 0.8 Monocytes # (Auto) 0.3 Eosinophils # (Auto) 0.1 Basophils # (Auto) 0.1 CBC Comment DIFF FINAL Differential Comment Sodium Level 132 Potassium Level 7.8 Chloride Level 99 Carbon Dioxide Level 18.3 Anion Gap 15 Blood Urea Nitrogen 144 Creatinine 17.32 Estimat Glomerular Filtration 4 Rate Random Glucose 73 Calcium Level 7.0 Protein Corrected Calcium 7.0 Total Protein 7.3 Result Diagram: 09/16/16 0930 09/16/16 1030 Imaging Last Impressions Chest X-Ray 09/16/16 0000 Signed Impressions: Service Date/Time: Friday, September 16, 2016 09:19 - CONCLUSION: Decrease in bilateral pulmonary opacity likely representing decreased pulmonary edema. Cardiac silhouette enlargement again noted. Humberto Emanuel MD Assessment and Plan Problem List: (1) End stage renal disease Plan: Patient getting dialysis 3 L UF tolerating it well High K treated with HD DC plans for out patient dialysis, d/w patient hyperkalemia can cause sudden cardiac arrest and . he has been noncompliant with HD. (2) Hyperkalemia Plan: treated medically and on HD now (3) Hypertension Plan: High resume out pt medications, Cole Manjarrez MD Sep 16, 2016 13:52
[2016-09-16 17:08] VITALS: BP 199/128; PULSE 68; RESP 18; O2SAT 96
[2016-09-16] MEDS: cloNIDine HCL 0.1 MG TAB PO PRN ×2 (17:10→23:40)
[2016-09-16] MEDS ORDERED: HYDR50TA15 PO (17:43)
[2016-09-16 19:13] LABS: BICARBONATE 28.3 MEQ/L (21.0-32.0); POTASSIUM 3.6 MEQ/L (3.5-5.1)
[2016-09-16 20:00] VITALS: BP 186/105; PULSE 74; RESP 18; TEMP 97.5; O2SAT 97
[2016-09-16 20:25] VITALS: PULSE 76
[2016-09-16] MEDS ORDERED: LABETALOL HCL 300 MG TAB PO SCH (21:00)
[2016-09-16] MEDS ORDERED: hydrALAZINE HCL 25 MG TAB PO SCH (21:00)
[2016-09-17] VITALS: BP 200/110; PULSE 76; RESP 20; TEMP 97.9; O2SAT 95
--- NOTE | 2016-09-18 12:06 | EKG ---
Date Performed: 09/16/2016 Time Performed: 11:21:34 PTAGE: 40 years EKG: Sinus rhythm WITH FIRST DEGREE AV BLOCK POSSIBLE LEFT ATRIAL ENLARGEMENT POSSIBLE LEFT VENTRICULAR HYPERTROPHY PO SSIBLE INFERIOR MYOCARDIAL INFARCTION Since previous tracing, no significant change noted ABNORMAL EC G PREVIOUS TRACING : 02/20/2011 01.45 DOCTOR: Aracely Fonseca Interpretating Date/Time 09/18/2016 12:04:45
== END 2016-09-17 03:30 | disposition left against medical advice (07) | DRG 291 ==
LOC: NEPC 08:28 → NEDA 11:58 → HOCB 16:29
PROVIDERS: ADMIT Internal Medicine; ATTEND Internal Medicine
PROC: 5A1D00Z (ICD-10-PCS; principal; 2016-09-16)
DX: I13.2 Hypertensive heart and chronic kidney disease with heart failure and with stage 5 chronic kidney disease, or end stage renal disease (principal); N18.6 End stage renal disease; E87.5 Hyperkalemia; R56.9 Unspecified convulsions; I50.9 Heart failure, unspecified; D63.8 Anemia in other chronic diseases classified elsewhere; Z91.15 Patient's noncompliance with renal dialysis; Z99.2 Dependence on renal dialysis; E83.51 Hypocalcemia
CPT/HCPCS: 71020; 80048; 84155; 85025; 90935; 93005; 94664; 96361; 96374; 96375; J0610; J1815; J7030; J7613; Q4081

== ENCOUNTER 2016-09-21 16:51 | Inpatient (IN) | payer SELFPAY ==
[~2016-09-21] VITALS: Ht 175.3 cm; Wt 81.8 kg
[~2016-09-21 16:51] MED LIST changes: -HYDR25TA35 PO; +HYDR50TA15 PO
[2016-09-21 16:55] VITALS: BP 225/121; PULSE 81; RESP 14; TEMP 98; O2SAT 96
[2016-09-21 17:22] VITALS: BP 218/139; PULSE 90; RESP 24; O2SAT 97
[2016-09-21] MEDS ORDERED: cloNIDine HCL 0.1 MG TAB PO ONE (17:30)
[2016-09-21] MEDS ORDERED: SODIUM CHLORIDE 0.9% FLUSH 5 ML FLUSH IVF PRN (17:30)
--- NOTE | 2016-09-21 17:39 | PD ---
HPI Chief Complaint: Hypertension Time Seen by Provider: 17:36 Travel History International Travel<30 days: No Contact w/Intl Traveler<30days: No Traveled to known affect area: No History of Present Illness HPI Patient comes emergency Department requesting dialysis. Patient states he has not had dialysis since being discharged from the hospital 4 days ago. Patient states he does not have a way to get to [facility] for his dialysis. Patient states he's been having increase in shortness of breath that is getting progressively worse. Patient states he did not get his blood pressure medicine either. Denies any chest pain, fevers, nausea, vomiting, or other concerns. PFSH Past Medical History Hx Anticoagulant Therapy: No Autoimmune Disease: No Blood Disorders: No Cancer: No Cardiovascular Problems: Yes (HTN ) Chest Pain: Yes Congestive Heart Failure: Yes Diabetes: No Dialysis: Yes (SHUNT IN LEFT ARM) Diminished Hearing: No Endocrine: No Genitourinary: Yes (ESRD) Hypertension: Yes Immune Disorder: No Musculoskeletal: No Neurologic: No Psychiatric: No Reproductive: No Respiratory: No Renal Failure: Yes Seizures: Yes Past Surgical History Cardiac Surgery: Yes ("TOOK FLUID IN HIS HEART"(PERICARDIOCENTHESIS??)) Other Surgery: Yes (SHUNT TO L ARM ) Social History Alcohol Use: No Tobacco Use: Yes Substance Use: No (uses marijuana) Allergies-Medications (Allergen,Severity, Reaction): Coded Allergies: No Known Allergies (Verified , 09/21/16) Reported Meds & Prescriptions Reported Meds & Active Scripts Active Reported Hydralazine (Hydralazine HCl) 50 Mg Tab 50 Mg PO TID Take with a meal Labetalol (Labetalol HCl) 300 Mg Tab 300 Mg PO BID Clonidine (Clonidine HCl) 0.3 Mg Tab 0.3 Mg PO TID Review of Systems Except as stated in HPI: all other systems reviewed are Neg Physical Exam Narrative GENERAL: Well-developed, well nourished, in no acute distress, and non-ill appearing. SKIN: Warm and dry. HEAD: Atraumatic. Normocephalic. EYES: Pupils equal and round. EOMI. No scleral icterus. No injection or drainage. ENT: No nasal bleeding or discharge. Mucous membranes pink and moist. NECK: Trachea midline. Supple. No nuclear rigidity. CARDIOVASCULAR: Regular rate and rhythm. No murmur appreciated. RESPIRATORY: No accessory muscle use. No respiratory distress. Rhonchi throughout. GASTROINTESTINAL: Abdomen soft, non-tender, nondistended. Hepatic and splenic margins not palpable. Normal bowel sounds 4. No pulsatile mass. MUSCULOSKELETAL: No obvious deformities. No clubbing. No cyanosis. 2+ pitting edema bilateral lower extremities. Full range of motion. NEUROLOGICAL: Awake and alert. No obvious cranial nerve deficits. Motor grossly within normal limits. Normal speech. PSYCHIATRIC: Appropriate mood and affect; insight and judgment normal. Data Data Last Documented VS Vital Signs Date Time Temp Pulse Resp B/P Pulse Ox O2 Delivery O2 Flow Rate FiO2 09/21/16 18:44 78 18 209/138 96 Room Air 09/21/16 16:55 98.0 Orders Complete Blood Count With Diff (09/21/16 17:25) Basic Metabolic Panel (Bmp) (09/21/16 17:25) Magnesium (Mg) (09/21/16 17:25) Iv Access Insert/Monitor (09/21/16 17:25) Electrocardiogram (09/21/16 17:25) Ecg Monitoring (09/21/16 17:25) Oximetry (09/21/16 17:25) Chest, Single Ap (09/21/16 17:25) Sodium Chloride 0.9% Flush (Ns Flush) (09/21/16 17:30) Phosphorus (Po4) (09/21/16 17:25) Clonidine (Catapres) (09/21/16 17:30) Protein Corrected Calcium(Pcc) (09/21/16 17:40) Labetalol (Trandate) (09/21/16 19:15) Hydralazine (Apresoline) (09/21/16 19:15) Sodium Polysty Sulfate Liq (Kayexalate L (09/21/16 19:15) Consult Nephrology (09/21/16 ) (Hub Use Only)Inp Phy Cons/Ref (09/21/16 ) Labs Laboratory Tests Test 09/21/16 17:40 White Blood Count 6.2 TH/MM3 Red Blood Count 2.43 MIL/MM3 Hemoglobin 7.8 GM/DL Hematocrit 23.2 % Mean Corpuscular Volume 95.7 FL Mean Corpuscular Hemoglobin 32.1 PG Mean Corpuscular Hemoglobin 33.5 % Concent Red Cell Distribution Width 17.9 % Platelet Count 206 TH/MM3 Mean Platelet Volume 8.5 FL Neutrophils (%) (Auto) 67.8 % Lymphocytes (%) (Auto) 16.9 % Monocytes (%) (Auto) 7.5 % Eosinophils (%) (Auto) 6.6 % Basophils (%) (Auto) 1.2 % Neutrophils # (Auto) 4.2 TH/MM3 Lymphocytes # (Auto) 1.0 TH/MM3 Monocytes # (Auto) 0.5 TH/MM3 Eosinophils # (Auto) 0.4 TH/MM3 Basophils # (Auto) 0.1 TH/MM3 CBC Comment DIFF FINAL Differential Comment Sodium Level 140 MEQ/L Potassium Level 5.7 MEQ/L Chloride Level 104 MEQ/L Carbon Dioxide Level 17.4 MEQ/L Anion Gap 19 MEQ/L Blood Urea Nitrogen 125 MG/DL Creatinine 13.72 MG/DL Estimat Glomerular Filtration 5 ML/MIN Rate Random Glucose 84 MG/DL Calcium Level 6.4 MG/DL Protein Corrected Calcium 6.4 MG/DL Phosphorus Level 5.8 MG/DL Magnesium Level 1.8 MG/DL Total Protein 7.2 GM/DL MDM Medical Decision Making Medical Screen Exam Complete: Yes Emergency Medical Condition: Yes Interpretation(s) EKG reviewed by Dr. Shafer, shows sinus rhythm with ventricular rate of 78. No STEMI. Differential Diagnosis Incisional disease, hyperkalemia, electrolyte abnormality, medical noncompliance , other Narrative Course [address] Manjarrez manufacturing cost estimator on-call. Patient seen and examined. Initial laboratory studies were obtained and reviewed. Discussed patient with Dr. Shafer, who is in agreement with plan of care and disposition. Discussed all findings and plan care of with the patient , who is agreeable for admission. All questions were answered. Physician Communication Physician Communication [address] Cheema, who is taking call for Dr. Manjarrez, this request call back once the potassium is resulted. [address] Kohler, recommends giving the patient 30 mg of Kayexalate by mouth and admit the patient to medicine observation status for dialysis in the morning. [address] Garcia, who is agreeable to admit the patient. Diagnosis Primary Impression: End stage renal disease Additional Impressions: Hypertension Qualified Code: I15.9 - Secondary hypertension Medical non-compliance Admitting Information Admitting Physician Requests: Observation Condition: Stable Chaim Culp Sep 21, 2016 17:39
--- NOTE | 2016-09-21 18:03 | RADRPT ---
EXAM DATE/TIME: 09/21/2016 15:44 [facility] COMPARISON: CHEST SINGLE AP, September 12, 2016, 7:34. INDICATIONS : Shortness of breath and chest pain. MEDICAL HISTORY : Congestive heart failure. SURGICAL HISTORY : None. ENCOUNTER: Initial ACUITY: 2 days PAIN SCORE: 8/10 LOCATION: chest FINDINGS: A single view of the chest demonstrates he improving bilateral airspace disease possibly representing resolving pulmonary edema. No associated effusion. Heart size remains prominent. The osseous structu res are intact. CONCLUSION: 1. Cardiomegaly with probable improving failure when compared to the prior examination. 2. No effusions. Ady Doss MD on September 21, 2016 at 18:00 Board Certified Radiologist. This report was verified electronically.
[2016-09-21 18:16] LABS: AUTOMATED NEUTROPHIL # 4.2 TH/MM3 (1.8-7.7); BASOPHIL # 0.1 TH/MM3 (0-0.2); BASOPHIL % 1.2 % (0.0-2.0); EOSINOPHIL # 0.4 TH/MM3 (0-0.4); EOSINOPHIL % 6.6 % (0.0-4.0); HEMATOCRIT 23.2 % (39.0-51.0); HEMO FLAGS DIFF FINAL; LYMPH % 16.9 % (9.0-44.0); MEAN CELL VOLUME 95.7 FL (80.0-100.0); MEAN CORPUSCULAR HEMOGLOBIN 32.1 PG (27.0-34.0); MEAN CORPUSCULAR HGB CONC 33.5 % (32.0-36.0); MONO % 7.5 % (0.0-8.0); NEUT % 67.8 % (16.0-70.0); PLATELET COUNT 206 TH/MM3 (150-450); RED BLOOD COUNT 2.43 MIL/MM3 (4.50-5.90); RED CELL DISTRIBUTION WIDTH 17.9 % (11.6-17.2); WHITE BLOOD COUNT 6.2 TH/MM3 (4.0-11.0)
[2016-09-21 18:44] VITALS: BP 209/138; PULSE 78; RESP 18; O2SAT 96
[2016-09-21 18:50] LABS: BICARBONATE 17.4 MEQ/L (21.0-32.0); MAGNESIUM 1.8 MG/DL (1.5-2.5); POTASSIUM 5.7 MEQ/L (3.5-5.1)
[2016-09-21 19:14] LABS: CALCIUM-PROTEIN CORRECTED 6.4 MG/DL (8.5-10.1)
[2016-09-21] MEDS ORDERED: LABETALOL HCL 300 MG TAB PO ONE (19:15)
[2016-09-21] MEDS ORDERED: hydrALAZINE HCL 50 MG TAB PO ONE (19:15)
[2016-09-21] MEDS ORDERED: SODIUM POLYSTYRENE SULFONATE SUSP 15 GM/60 ML CUP PO ONE (19:15)
[2016-09-21 19:30] VITALS: BP 201/121; PULSE 81; RESP 18; O2SAT 98
[2016-09-21] MEDS ORDERED: INSULIN HUMAN REGULAR 1,000 UNITS/10 ML VIAL IV PUSH ONE (19:45)
[2016-09-21] MEDS ORDERED: CALCIUM CHLORIDE INJ 2 GM in SODIUM CHLORIDE 0.9% INJ 100 ML IV ONE (19:45)
[2016-09-21] MEDS ORDERED: DEXTROSE 50% IN WATER 50 ML VIAL(D50) IV PUSH ONE (19:45)
[2016-09-21] MEDS ORDERED: LABETALOL HCL 100 MG/20 ML VIAL IV PUSH ONE (20:15)
[2016-09-21] MEDS ORDERED: LABETALOL HCL 300 MG TAB PO SCH (21:00)
--- NOTE | 2016-09-21 22:22 | HHI.HP ---
HPI Service Observation H&P selected in error; this is an Inpatient H&P [facility] ([place], [place])ists Primary Care Physician No Primary Care Physician Admission Diagnosis end-stage renal disease, hypertension, medical noncompliance Diagnoses: (1) End stage renal disease (2) Hypertensive urgency (3) Medical non-compliance (4) Hyperkalemia (5) Atypical chest pain Chief Complaint: Shortness of breath; unable to get dialysis as an outpatient Travel History International Travel<30 Days: No Contact w/Intl Traveler <30 Da: No Traveled to Known Affected Are: No History of Present Illness Mr. Alicia is a 41-year-old male with a past medical history of end-stage renal disease for 9 years requiring hemodialysis and hypertension who presented to the emergency room requesting hemodialysis. The patient will be emergency room physician that he had been unable to travel to [place] to get hemodialysis and was feeling increasingly short of breath. Chest x-ray showed cardiomegaly with probable improving failure when compared to prior examination and no effusions. He was noted to have elevated potassium of 5.7 on admission. He was also severely hypertensive with blood pressure 225/121 on admission. He was recently hospitalized and discharged 09/17/2016. He states he also ran out of his antihypertensive medications. He is seen in the emergency room where he is extremely agitated and angry because of his prolonged wait to be allowed to eat. He is very short tempered and at times does not answer questions and other times provides very short, one or 2 word answers to questions. He frequently mentions that it's his birthday and he just wants to be anywhere but at the hospital. He also mentions some moderate centralized chest pain that is related to shortness of breath. He verbalizes thinking that this is muscular in nature. He denies any radiating pain, nausea, diaphoresis. . Review of Systems ROS Limitations: Uncooperative (patient did not want to answer very many questions; he frequently interrupted interview to express frustration with delay in being allowed to eat and at times did not answer questions) Respiratory: COMPLAINS OF: Shortness of breath Cardiovascular: COMPLAINS OF: Chest pain Gastrointestinal: DENIES: Nausea, Vomiting Past Family Social History Past Medical History Hypertension End-stage renal disease on hemodialysis for 9 years . Past Surgical History Left arm fistula placement . Reported Medications Reported Meds & Active Scripts Active Reported Hydralazine (Hydralazine HCl) 50 Mg Tab 50 Mg PO TID Take with a meal Labetalol (Labetalol HCl) 300 Mg Tab 300 Mg PO BID Clonidine (Clonidine HCl) 0.3 Mg Tab 0.3 Mg PO TID . Allergies: Coded Allergies: *MDRO Multi-Drug Resistant Organism (Verified Adverse Reaction, Unknown, MRSA, 09/27/16) MRSA PCR screen POSITIVE - 09/27/16 Active Ordered Medications Current Medications IV Flush (NS Flush) 2 ml UNSCH PRN IVF FLUSH AFTER USING IV ACCESS Last administered on 09/22/16 04:22; Start 09/21/16 at 17:30 Clonidine (Catapres) 0.3 mg ONCE ONCE PO Last administered on 09/21/16 18:51; Start 09/21/16 at 17:30; Stop 09/21/16 at 17:31; Status DC Labetalol HCl (Trandate) 300 mg ONCE ONCE PO Last administered on 09/21/16 19: 34; Start 09/21/16 at 19:15; Stop 09/21/16 at 19:16; Status DC Hydralazine HCl (Apresoline) 50 mg ONCE ONCE PO Last administered on 09/21/16 19:34; Start 09/21/16 at 19:15; Stop 09/21/16 at 19:16; Status DC Sodium Polystyrene Sulfonate (Kayexalate Liq) 30 gm ONCE ONCE PO Last administered on 09/21/16 19:34; Start 09/21/16 at 19:15; Stop 09/21/16 at 19:16; Status DC Hydralazine HCl (Apresoline) 50 mg TID PO ; Start 09/22/16 at 09:00 Labetalol HCl 300 mg 300 mg BID PO ; Start 09/21/16 at 21:00; Stop 09/21/16 at 21: 00; Status DC Calcium Chloride/ Sodium Chloride (Calcium Chloride Inj/NS Inj) 120 ml @ 120 mls/hr ONCE ONCE IV Last administered on 09/21/16 20:43; Start 09/21/16 at 19: 45; Stop 09/21/16 at 20:44; Status DC Insulin Human Regular (NovoLIN R INJ) 1 units ONCE ONCE IV PUSH Last administered on 09/21/16 20:44; Start 09/21/16 at 19:45; Stop 09/21/16 at 19:57; Status DC Dextrose (D50w (Vial) Inj) 25 ml ONCE ONCE IV PUSH Last administered on 20:43; Start 09/21/16 at 19:45; Stop 09/21/16 at 19:57; Status DC Labetalol HCl 10 mg 10 mg BOLUS ONCE IV PUSH Last administered on 09/21/16 20: 44; Start 09/21/16 at 20:15; Stop 09/21/16 at 20:16; Status DC Labetalol HCl/ Sodium Chloride (Trandate Inj/NS Inj) 250 ml @ 0 mls/hr TITRATE IV Last administered on 09/22/16 00:22; Start 09/21/16 at 21:00 Hydralazine HCl (Apresoline Inj) 10 mg Q30M PRN IV PUSH SBP > 170 Last administered on 09/22/16 05:02; Start 09/22/16 at 04:15 . Family History Dad and grandfather with kidney disease due to DM Social History Smokes cigarettes Alcohol: none Illicit Drugs: smokes weed . Physical Exam Vital Signs Vital Signs Date Time Temp Pulse Resp B/P Pulse Ox O2 Delivery O2 Flow Rate FiO2 09/21/16 19:30 81 18 201/121 98 Room Air 09/21/16 18:44 78 18 209/138 96 Room Air 09/21/16 17:22 90 24 218/139 97 Room Air 09/21/16 16:55 98.0 81 14 225/121 96 Room Air Physical Exam GENERAL: This is a well-nourished, well-developed patient, in no apparent distress but very angry about being hungry and agitated. SKIN: No rashes, ecchymoses or lesions. Cool and dry. HEAD: Atraumatic. Normocephalic. EYES: No scleral icterus. No injection or drainage. ENT: Nose without bleeding, purulent drainage. NECK: Trachea midline. No JVD or lymphadenopathy. CARDIOVASCULAR: Regular rate and rhythm without murmurs, gallops, or rubs. RESPIRATORY: Clear to auscultation. Breath sounds equal bilaterally. No wheezes , rales, or rhonchi. GASTROINTESTINAL: Abdomen soft, non-tender, nondistended. No guarding. MUSCULOSKELETAL: Extremities without clubbing, cyanosis, or edema. No calf tenderness. NEUROLOGICAL: Awake and alert. Motor and sensory grossly within normal limits. Normal speech. . Laboratory Laboratory Tests Test 09/21/16 17:40 White Blood Count 6.2 Red Blood Count 2.43 Hemoglobin 7.8 Hematocrit 23.2 Mean Corpuscular Volume 95.7 Mean Corpuscular Hemoglobin 32.1 Mean Corpuscular Hemoglobin 33.5 Concent Red Cell Distribution Width 17.9 Platelet Count 206 Mean Platelet Volume 8.5 Neutrophils (%) (Auto) 67.8 Lymphocytes (%) (Auto) 16.9 Monocytes (%) (Auto) 7.5 Eosinophils (%) (Auto) 6.6 Basophils (%) (Auto) 1.2 Neutrophils # (Auto) 4.2 Lymphocytes # (Auto) 1.0 Monocytes # (Auto) 0.5 Eosinophils # (Auto) 0.4 Basophils # (Auto) 0.1 CBC Comment DIFF FINAL Differential Comment Sodium Level 140 Potassium Level 5.7 Chloride Level 104 Carbon Dioxide Level 17.4 Anion Gap 19 Blood Urea Nitrogen 125 Creatinine 13.72 Estimat Glomerular Filtration 5 Rate Random Glucose 84 Calcium Level 6.4 Protein Corrected Calcium 6.4 Phosphorus Level 5.8 Magnesium Level 1.8 Total Protein 7.2 Result Diagram: 09/21/16 1740 09/21/16 1740 Imaging Last Impressions Chest X-Ray 09/21/16 1725 Signed Impressions: Service Date/Time: Wednesday, September 21, 2016 15:44 - CONCLUSION: 1. Cardiomegaly with probable improving failure when compared to the prior examination. 2. No effusions. Ady Doss MD . Assessment and Plan Problem List: (1) End stage renal disease ICD Code: N18.6 Status: Chronic (2) Hypertensive urgency ICD Code: I16.0 Status: Chronic (3) Medical non-compliance ICD Code: Z91.19 Status: Acute (4) Hyperkalemia ICD Code: E87.5 Status: Acute (5) Atypical chest pain ICD Code: R07.89 Status: Acute Assessment and Plan End-stage renal disease - Consult Dr. Cheema to continue hemodialysis Hyperkalemia - Potassium 5.7 on admission - Has received Kayexalate, calcium chloride, D50, and insulin - Continuous cardiac telemetry to monitor for arrhythmias - Recheck BMP in a.m. and follow trends Hypertensive urgency - Labetalol drip - Hydralazine 10 mg IV every 30 minutes when necessary for systolic blood pressure greater than 170 - Continue home hydralazine - Monitor blood pressure readings and adjust medications accordingly Atypical chest pain - likely secondary to hypertensive urgency - Serial cardiac enzymes and EKGs to rule out ACS Medical noncompliance due to financial limitations - Consult case management for assistance with discharge planning DVT prophylaxis - Heparin 5000 units q8h subq Written by Kelsi Harvey, acting as scribe for Dr. Garcia on 09/21/16 at 22:22. The documentation accurately reflects the work performed [id number] by me on at 22:22. Discussed Condition With Patient ER physician . Kelsi Harvey Sep 21, 2016 22:22 Darnell Albright MD Sep 28, 2016 23:12
[2016-09-22] VITALS (21 sets, daily range): BP systolic 130–234; BP diastolic 79–136; PULSE 60–82; RESP 16–22; TEMP 97.5–98.4; O2SAT 95–100
[2016-09-22] MEDS: LABETALOL INJ 500 MG in SODIUM CHLORIDE 0.9% INJ 150 ML IV SCH ×5 (00:22→23:28)
[2016-09-22 03:21] LABS: CKMB 11.3 NG/ML (0.5-3.6)
[2016-09-22] MEDS: hydrALAZINE HCL 20 MG/ML VIAL IV PUSH PRN ×7 (04:22→14:13)
--- NOTE | 2016-09-22 04:57 | EKG ---
Date Performed: 09/21/2016 Time Performed: 19:09:11 PTAGE: 41 years EKG: Sinus rhythm POSSIBLE LEFT ATRIAL ENLARGEMENT LEFT VENTRICULAR HYPERTROPHY AND ST-T CHANGE ABNORMAL ECG COMPARED TO PRIOR ELECTROCARDIOGRAM, T wave amplitude has decreased. PREVIOUS TRACING : 09/16/2016 11.21 DOCTOR: Yusef Galloway Interpretating Date/Time 09/22/2016 04:57:34
[2016-09-22] MEDS: HEPARIN SODIUM - SQ 10,000 UNITS/ML VIAL SQ SCH ×3 (06:46→20:51)
[2016-09-22 07:19] LABS: CKMB 10.5 NG/ML (0.5-3.6)
--- NOTE | 2016-09-22 08:12 | EKG ---
Date Performed: 09/21/2016 Time Performed: 23:54:14 PTAGE: 41 years EKG: Sinus rhythm POSSIBLE LEFT ATRIAL ENLARGEMENT LEFT VENTRICULAR HYPERTROPHY AND ST-T CHANGE ABNORMAL ECG NO SIGNIF ICANT CHANGE FROM PRIOR ELECTROCARDIOGRAM. PREVIOUS TRACING : 09/21/2016 19.09 DOCTOR: Yusef Galloway Interpretating Date/Time 09/22/2016 08:12:09
[2016-09-22] MEDS ORDERED: LABETALOL HCL 100 MG/20 ML VIAL IV PUSH PRN ×2 (09:00→14:00)
[2016-09-22] MEDS: hydrALAZINE HCL 50 MG TAB PO SCH ×5 (09:22→17:55)
--- NOTE | 2016-09-22 09:25 | HHI.PR ---
Subjective Remarks BP into a higher side. Plan for HD at noon per nephro. Patient in the chair says he has some sob and he is coughing some whitish sputum. He also complaints of headache. No change in vision or motor/sensory deficit. No n/v/d/c. Objective Vitals Vital Signs Date Time Temp Pulse Resp B/P Pulse Ox O2 Delivery O2 Flow Rate FiO2 09/22/16 07:15 77 18 172/102 98 Room Air 09/22/16 07:15 73 18 173/102 98 09/22/16 06:30 74 16 165/109 100 Nasal Cannula 2 09/22/16 05:30 76 16 169/111 100 Nasal Cannula 2 09/22/16 04:50 70 16 203/111 100 Nasal Cannula 2 09/22/16 04:35 68 16 180/100 100 Nasal Cannula 2 09/22/16 04:28 72 16 177/113 100 Nasal Cannula 2 09/22/16 04:00 70 16 196/131 100 Nasal Cannula 2 09/22/16 03:00 72 16 210/134 100 Nasal Cannula 2 09/22/16 01:45 72 16 185/123 99 Nasal Cannula 2 09/22/16 00:36 82 16 231/136 95 Room Air 09/22/16 00:24 81 18 234/128 96 Room Air 09/21/16 19:30 81 18 201/121 98 Room Air 09/21/16 18:44 78 18 209/138 96 Room Air 09/21/16 17:22 90 24 218/139 97 Room Air 09/21/16 16:55 98.0 81 14 225/121 96 Room Air Result Diagram: 09/21/16 1740 09/21/16 1740 Imaging Last Impressions Chest X-Ray 09/21/16 1725 Signed Impressions: Service Date/Time: Wednesday, September 21, 2016 15:44 - CONCLUSION: 1. Cardiomegaly with probable improving failure when compared to the prior examination. 2. No effusions. Ady Doss MD Objective Remarks GENERAL: This is a well-nourished, well-developed patient, in no apparent distress but very angry about being hungry and agitated. SKIN: No rashes, ecchymoses or lesions. Cool and dry. HEAD: Atraumatic. Normocephalic. EYES: No scleral icterus. No injection or drainage. ENT: Nose without bleeding, purulent drainage. NECK: Trachea midline. No JVD or lymphadenopathy. CARDIOVASCULAR: Regular rate and rhythm without murmurs, gallops, or rubs. RESPIRATORY: Clear to auscultation. Breath sounds equal bilaterally. No wheezes , rales, or rhonchi. GASTROINTESTINAL: Abdomen soft, non-tender, nondistended. No guarding. MUSCULOSKELETAL: Extremities without clubbing, cyanosis, or edema. No calf tenderness. NEUROLOGICAL: Awake and alert. Motor and sensory grossly within normal limits. Normal speech. A/P Problem List: (1) End stage renal disease ICD Code: N18.6 Status: Chronic (2) Hypertensive urgency ICD Code: I16.0 Status: Chronic (3) Medical non-compliance ICD Code: Z91.19 Status: Acute (4) Hyperkalemia ICD Code: E87.5 Status: Acute (5) Atypical chest pain ICD Code: R07.89 Status: Acute Assessment and Plan End-stage renal disease - Consult Dr. Cheema to continue hemodialysis Hyperkalemia - Potassium 5.7 on admission - Has received Kayexalate, calcium chloride, D50, and insulin - Continuous cardiac telemetry to monitor for arrhythmias - Recheck BMP in a.m. and follow trends Hypertensive urgency - Labetalol drip - Hydralazine 10 mg IV every 30 minutes when necessary for systolic blood pressure greater than 170, labetalol 10 mg IV prn - Continue home hydralazine - Monitor blood pressure readings and adjust medications accordingly - HD 2/ Atypical chest pain - likely secondary to hypertensive urgency - Serial cardiac enzymes and EKGs to rule out ACS Medical noncompliance due to financial limitations - Consult case management for assistance with discharge planning DVT prophylaxis - Heparin 5000 units q8h subq Discussed Condition With Patient, ICU nurse Mackenzie Hernández MD Sep 22, 2016 09:25
[2016-09-22] MEDS ORDERED: ACETAMINOPHEN 325 MG TAB PO PRN ×2 (10:30→12:45)
[2016-09-22] MEDS ORDERED: ACETAMINOPHEN/HYDROcodone 325 MG/5 MG TAB PO PRN (10:30)
[2016-09-22] MEDS ORDERED: SODIUM CHLOR 0.9% 1000 ML INJ 1,000 ML IV PRN (12:35)
[2016-09-22] MEDS ORDERED: ALBUMIN HUMAN 25% 25 GM/100 ML BAGP IV PRN (12:45)
[2016-09-22] MEDS ORDERED: HEPARIN SODIUM - IV 10,000 UNITS/10 ML VIAL PRN (12:45)
[2016-09-22] MEDS ORDERED: GENTAMICIN SULFATE (DIALYSIS USE ONLY) 20 MG/2 ML VIAL IV PRN (12:45)
[2016-09-22] MEDS ORDERED: EPOETIN ALFA 10,000 UNITS/ML VIAL IV PRN (12:45)
[2016-09-22] MEDS ORDERED: HEPARIN SODIUM - IV 10,000 UNITS/10 ML VIAL IVF PRN (12:45)
[2016-09-22] MEDS ORDERED: diphenhydrAMINE HCL 25 MG CAP PO PRN (12:45)
[2016-09-22] MEDS ORDERED: SODIUM CHLORIDE 0.9% FLUSH 5 ML FLUSH IVF PRN (12:45)
[2016-09-22] MEDS: VITAMIN B CMPLX/VITC/FOLIC AC CAP PO SCH (12:45)
[2016-09-22] MEDS ORDERED: MANNITOL 12.5 GM/50 ML VIAL IV PRN (12:45)
[2016-09-22] MEDS ORDERED: NITROGLYCERIN 0.4 MG SL 25 TABS/BTL SL PRN (12:45)
[2016-09-22] MEDS ORDERED: ONDANSETRON HCL 4 MG/2 ML VIAL IV PRN (12:45)
[2016-09-22] MEDS: CALCIUM ACETATE 667 MG CAP PO SCH ×2 (13:04→18:00)
--- NOTE | 2016-09-22 13:23 | MB ---
cc: GREGORY HARRELL MD DATE OF CONSULTATION 09/22/2016 REASON FOR CONSULTATION End-stage renal disease on hemodialysis for management. HISTORY OF PRESENT ILLNESS This is a 41-year-old -[place] male with a past medical history of hypertension, end-stage renal disease on hemodialysis for nine years, history of chronic anemia, hyperkalemia and noncompliance who came to the hospital with a complaint of generalized weakness and shortness of breath. I was called to see the patient for the management of dialysis. The patient has been on hemodialysis for nine years and he moved from the [place]. He was seen by Dr. Manjarrez in the last two weeks twice and he was admitted and discharged on September 17 and he was supposed to go for dialysis to [place], but he never went there appeared to him because of the transportation problem. He has generalized weakness, feeling tired. When he came in here, his blood pressure was very high and his potassium was 5.7. I was called last night about him and he was given some Kayexalate and the plan was to start him on dialysis this morning and now currently he is started on dialysis. He has no edema in the legs. His blood pressure has been on the higher side. He has been given getting intermittent IV hydralazine and labetalol for the high blood pressure. He possibly has noncompliance with his fluid intake and may be medication also. PAST MEDICAL HISTORY 1. Hypertension 2. End-stage renal disease on hemodialysis 3. Chronic anemia 4. Hyperkalemia 5. History of noncompliance. PAST SURGICAL HISTORY Left arm AV fistula surgery. REVIEW OF SYSTEMS The patient has generalized weakness, feeling tired, has a headache. There is no dizziness. No nausea or vomiting and mild shortness of breath. No chest pain. No palpitation. No abdominal pain. No history of diarrhea. SOCIAL HISTORY The patient is single. He recently moved to this area. He has a history of smoking. There is no history of heavy alcoholism or any other drugs. FAMILY HISTORY Positive for kidney disease in father and grandfather, also a history of diabetes mellitus. ALLERGIES He has NO KNOWN DRUG ALLERGIES. MEDICATIONS Currently he is on following medications: 1. Hydralazine 50 mg t.i.d. 2. Heparin 5000 subcu q8-hour 3. Labetalol infusion 4. Hydralazine 10 mg q30 minutes p.r.n. 5. Labetalol q6-hour 10 mg p.r.n. 6. [place] as needed PHYSICAL EXAMINATION The patient is quite sleepy, but he has wakes up on command. He is on hemodialysis right now. His last blood pressure is 206/126, temperature is 98.2, oxygen saturation on 99-100%. HEAD, EYES, EARS, NOSE, AND THROAT: Pupils equally reacting to light. Nonicteric sclera, conjunctiva pale. NECK: Supple. JVD is not elevated. LUNGS: The patient has bilateral decreased air entry with occasional wheezing. HEART: S1 and S2, regular rhythm. ABDOMEN: Distended, soft and lax. There is no tenderness. Bowel sounds positive. EXTREMITIES: He has bilateral 3+ edema. INVESTIGATION WBC count is 6.2, hemoglobin 7.8, platelet count of 206, neutrophils 67.8%. Sodium 140, potassium 5.7, chloride 104, bicarb 17.4, BUN 125, creatinine 13.7, calcium corrected is 6.4, phosphorus is 5.8 and creatinine kinase is 3358. Troponin-I 0.29, INR is 1.0. Hepatitis serology was negative. IMAGING STUDIES The patient has chest x-ray done which shows that he has cardiomegaly. ASSESSMENT/PLAN 1. End-stage renal disease on hemodialysis. 2. Hyperkalemia and uremia. 3. Fluid overload status. 4. Hypertension uncontrolled. 5. History of noncompliance. 6. Anemia The patient has not been dialyzed for the last six days and now is coming with very high blood pressure most likely this is related to fluid and there is a question of noncompliance also. He is now on hemodialysis. He needs to continue the dialysis on a regular basis. I will discuss with him further about it. He has been complaining of transportation issue and also he has to be compliant with his fluid intake. Right now, we are trying to remove 5-6 liters with dialysis. Follow the blood pressure post hemodialysis. I will adjust his antihypertensive medications and he will be getting Epogen with the dialysis for the anemia. Thank you for the consultation. I will follow the patient while he is in the hospital and once he is discharged, he will be following with Dr. Manjarrez. MD AMANDA Jasso/DJL /12:34 PM /1:11 PM
--- NOTE | 2016-09-22 13:37 | EKG ---
Date Performed: 09/22/2016 Time Performed: 11:42:42 PTAGE: 41 years EKG: Sinus rhythm LEFT ATRIAL ENLARGEMENT LEFT VENTRICULAR HYPERTROPHY AND ST-T CHANGE ABNORMAL ECG NO SIGNIFICANT VENANCIO NGE FROM PRIOR ELECTROCARDIOGRAM. PREVIOUS TRACING : 09/21/2016 23.54 DOCTOR: Yusef Galloway Interpretating Date/Time 09/22/2016 13:36:18
[2016-09-22] MEDS: cloNIDine HCL 0.1 MG TAB PO PRN ×3 (13:50→14:19)
[2016-09-22] MEDS: SODIUM CHLOR 0.9% 1000 ML INJ 1,000 ML IV PRN ×2 (13:51)
[2016-09-22] MEDS: GELATIN 12 MM/7 MM FOAM TOP PRN (13:51)
[2016-09-22 18:13] LABS: CKMB 9.3 NG/ML (0.5-3.6)
[2016-09-23] VITALS (8 sets, daily range): BP systolic 132–208; BP diastolic 88–120; PULSE 56–69; RESP 20; TEMP 97.5–97.8; O2SAT 98–100
[2016-09-23] MEDS: HEPARIN SODIUM - SQ 10,000 UNITS/ML VIAL SQ SCH ×2 (05:08→14:00)
--- NOTE | 2016-09-23 08:02 | HHI.DCPOC ---
Discharge Care Plan Goals to Promote Your Health * To prevent worsening of your condition and complications * To maintain your health at the optimal level Directions to Meet Your Goals Take your medications as prescribed Follow your dietary instruction Follow activity as directed Keep your appointments as scheduled Take your immunizations and boosters as scheduled If your symptoms worsen call your PCP, if no PCP go to Urgent Care Center or Emergency Room Smoking is Dangerous to Your Health. Avoid second hand smoke Call the 24-hour hour crisis hotline for domestic abuse at Mackenzie Hernández MD Sep 23, 2016 08:02
--- NOTE | 2016-09-23 08:03 | HHI.DS ---
Discharge Summary Admission Date Sep 21, 2016 at 19:23 Discharge Date: Sep 23, 2016 Admitting Diagnosis end-stage renal disease, hypertension, medical noncompliance (1) End stage renal disease ICD Code: N18.6 Diagnosis: Principal (2) Hypertensive urgency ICD Code: I16.0 Diagnosis: Principal (3) Medical non-compliance ICD Code: Z91.19 Diagnosis: Principal (4) Hyperkalemia ICD Code: E87.5 Diagnosis: Principal (5) Atypical chest pain ICD Code: R07.89 Procedures none Brief History - From Admission Mr. Alicia is a 41-year-old male with a past medical history of end-stage renal disease for 9 years requiring hemodialysis and hypertension who presented to the emergency room requesting hemodialysis. The patient will be emergency room physician that he had been unable to travel to [place] to get hemodialysis and was feeling increasingly short of breath. Chest x-ray showed cardiomegaly with probable improving failure when compared to prior examination and no effusions. He was noted to have elevated potassium of 5.7 on admission. He was also severely hypertensive with blood pressure 225/121 on admission. He was recently hospitalized and discharged 09/17/2016. He states he also ran out of his antihypertensive medications. He is seen in the emergency room where he is extremely agitated and angry because of his prolonged wait to be allowed to eat. He is very short tempered and at times does not answer questions and other times provides very short, one or 2 word answers to questions. He frequently mentions that it[birth year] his birthday and he just wants to be anywhere but at the hospital. He also mentions some moderate centralized chest pain that is related to shortness of breath. He verbalizes thinking that this is muscular in nature. He denies any radiating pain, nausea, diaphoresis. . CBC/BMP: 09/21/16 1740 09/21/16 1740 Significant Findings Laboratory Tests Test 09/21/16 09/22/16 09/22/16 09/22/16 17:40 00:19 05:50 16:18 Red Blood Count 2.43 MIL/MM3 (4.50-5.90) Hemoglobin 7.8 GM/DL (13.0-17.0) Hematocrit 23.2 % (39.0-51.0) Red Cell Distribution Width 17.9 % (11.6-17.2) Eosinophils (%) (Auto) 6.6 % (0.0-4.0) Potassium Level 5.7 MEQ/L (3.5-5.1) Carbon Dioxide Level 17.4 MEQ/L (21.0-32.0) Anion Gap 19 MEQ/L (5-15) Blood Urea Nitrogen 125 MG/DL (7-18) Creatinine 13.72 MG/DL (0.60-1.30) Estimat Glomerular Filtration 5 ML/MIN (>89) Rate Calcium Level 6.4 MG/DL (8.5-10.1) Protein Corrected Calcium 6.4 MG/DL (8.5-10.1) Phosphorus Level 5.8 MG/DL (2.5-4.9) Total Creatine Kinase 3368 U/L 3358 U/L 2682 U/L (39-308) (39-308) (39-308) Creatine Kinase MB 11.3 NG/ML 10.5 NG/ML 9.3 NG/ML (0.5-3.6) (0.5-3.6) (0.5-3.6) Troponin I 0.29 NG/ML 0.28 NG/ML 0.26 NG/ML (0.02-0.05) (0.02-0.05) (0.02-0.05) Imaging Last Impressions Chest X-Ray 09/21/16 [id number] Signed Impressions: Service Date/Time: Wednesday, September 21, 2016 15:44 - CONCLUSION: 1. Cardiomegaly with probable improving failure when compared to the prior examination. 2. No effusions. Ady Dsos MD PE at Discharge GENERAL: This is a well-nourished, well-developed patient, in no apparent distress but very angry about being hungry and agitated. SKIN: No rashes, ecchymoses or lesions. Cool and dry. HEAD: Atraumatic. Normocephalic. EYES: No scleral icterus. No injection or drainage. ENT: Nose without bleeding, purulent drainage. NECK: Trachea midline. No JVD or lymphadenopathy. CARDIOVASCULAR: Regular rate and rhythm without murmurs, gallops, or rubs. RESPIRATORY: Clear to auscultation. Breath sounds equal bilaterally. No wheezes , rales, or rhonchi. GASTROINTESTINAL: Abdomen soft, non-tender, nondistended. No guarding. MUSCULOSKELETAL: Extremities without clubbing, cyanosis, or edema. No calf tenderness. NEUROLOGICAL: Awake and alert. Motor and sensory grossly within normal limits. Normal speech. Pt update on day of discharge Seen in the morning prior to HD. Patient in the chair eating breakfast . Doesn't appear in acute distress. No cp , sob, n/v/d/c. Feels tired. No more headache. BP much better. Hospital Course End-stage renal disease received HD on 09/22 and 09/23 - Consult Dr. Cheema to continue hemodialysis Hyperkalemia - Potassium 5.7 on admission - Has received Kayexalate, calcium chloride, D50, and insulin - Continuous cardiac telemetry to monitor for arrhythmias - Recheck BMP in a.m. and follow trends Hypertensive urgency - Labetalol drip - Hydralazine 10 mg IV every 30 minutes when necessary for systolic blood pressure greater than 170, labetalol 10 mg IV prn - Continue home hydralazine - Monitor blood pressure readings and adjust medications accordingly - HD 09/22 and 09/23 - With elevated BP Atypical chest pain - likely secondary to hypertensive urgency - Serial cardiac enzymes and EKGs to rule out ACS Medical noncompliance due to financial limitations - Consult case management for assistance with discharge planning DVT prophylaxis - Heparin 5000 units q8h subq Discussed Condition With Patient, ICU nurse Patient left AMA 09/23 after HD , note his BP at DC was very high 208/120 Pt Condition on Discharge: Stable Discharge Disposition: Discharge Home (left AMA) Discharge Time: <= 30 minutes Discharge Instructions DIET: Follow Instructions for: Dialysis Diet Activities you can perform: Regular-No Restrictions Follow up Referrals: Nephrology - 3-5 Days PCP Follow-up - 3-5 Days Continued Medications: Clonidine (Clonidine) 0.3 Mg Tab 0.3 MG PO TID Blood Pressure Management #60 Ref 0 TAB Hydralazine (Hydralazine) 50 Mg Tab 50 MG PO TID Take with a meal Blood Pressure Management Ref 0 TAB Labetalol (Labetalol) 300 Mg Tab 300 MG PO BID Blood Pressure Management Ref 0 TAB Mackenzie Hernández MD Sep 23, 2016 08:03
[2016-09-23] MEDS: CALCIUM ACETATE 667 MG CAP PO SCH ×2 (08:22→14:28)
[2016-09-23] MEDS: VITAMIN B CMPLX/VITC/FOLIC AC CAP PO SCH (08:22)
[2016-09-23] MEDS: hydrALAZINE HCL 50 MG TAB PO SCH ×2 (08:22→14:28)
[2016-09-23] MEDS: SODIUM CHLOR 0.9% 1000 ML INJ 1,000 ML IV PRN ×2 (11:03)
[2016-09-23] MEDS: GELATIN 12 MM/7 MM FOAM TOP PRN (11:03)
--- NOTE | 2016-09-23 12:47 | HHI.NPPN ---
Subjective History of Present Illness 41-year-old -[place]ine[place] male with a past medical history of hypertension, end-stage renal disease on hemodialysis for nine years, history of chronic anemia, hyperkalemia and noncompliance who came to the hospital with a complaint of generalized weakness and shortness of breath. I was called to see the patient for the management of dialysis. Additional Remarks Patient seen during HD, alert, not in distress, breathing is much better. Review of Systems General Constitutional: Fatigue Respiratory Lungs: SOB, Cough, Wheeze Cardiovascular Cardiac: BAHE[place] Objective Data Data 09/22/16 09/23/16 19:00 07:00 Intake Total 267 ml 1709 ml Output Total 6000 ml 0 ml Balance -5733 ml 1709 ml Intake Oral 240 ml 720 ml IV Total 27 ml 989 ml Output Urine Total 0 ml 0 ml Hemodialysis 6000 ml # Bowel Movements 0 Vital Signs Date Time Temp Pulse Resp B/P Pulse Ox O2 Delivery O2 Flow Rate FiO2 09/23/16 10:00 56 09/23/16 08:53 98 21 09/23/16 08:00 60 09/23/16 08:00 97.8 60 20 132/88 100 09/23/16 06:00 69 09/23/16 04:00 56 09/23/16 04:00 97.5 60 20 151/91 09/23/16 02:00 63 09/23/16 00:00 56 09/23/16 00:00 97.5 62 20 160/101 09/22/16 22:00 61 09/22/16 20:00 97.5 60 20 165/101 100 09/22/16 20:00 60 09/22/16 19:45 100 Nasal Cannula 2.00 09/22/16 19:00 99 Room Air 09/22/16 18:00 60 09/22/16 16:00 66 09/22/16 16:00 98.0 66 19 130/79 100 09/22/16 14:00 74 -: 09/21/16 1740 09/21/16 1740 Physical Exam General Appearance: No Acute Distress, Comfortable Eyes Eye Exam: Pupils Equal Throat Throat Exam: Oral Mucosa [place] & Moist Neck Neck Exam: Neck Supple Pulmonary Resp Exam: Clear Bilaterally, Breath Sounds Equal, No Distress, Decreased Bases Cardiology CV Exam: Regular, Normal Sinus Rhythm Gastrointestinal/Abdomen GI Exam: Soft, Non-Tender, Bowel Sounds Present Extremeties Extremities Exam: Moderate Edema Neurologic Neuro Exam: Alert, Awake, Oriented Psychiatric Psych Exam: Appropriate Responses Assessment/Plan Assessment Summary: Anemia of CKD, Fluid/Volume Overload, Hypertension, End Stage Renal Disease Problem List: (1) Hypertension (2) Hyperkalemia (3) Medical non-compliance (4) Hypertensive urgency (5) End stage renal disease Plan Patient is now on HD and removing 4 liters. BP is better. Told to be compliant with his meds and HD treatment. For possible D/C after HD. To continue HD MWF at [facility]. Dr. Manjarrez will follow him. Problem Qualifiers (1) Hypertension: Qualified Code: I15.9 - Secondary hypertension Sachin Cheema MD Sep 23, 2016 12:47
[2016-09-23] MEDS: cloNIDine HCL 0.1 MG TAB PO PRN (12:53)
[2016-09-23] MEDS: hydrALAZINE HCL 20 MG/ML VIAL IV PUSH PRN (14:28)
== END 2016-09-23 14:37 | disposition left against medical advice (07) | DRG 291 ==
LOC: NEPC 16:51 → OBSVTOIN 19:23 → NEDA 19:23 → NEDH 23:23 → N03B 09-22 07:25
PROVIDERS: ADMIT Hospitalist; ATTEND Hospitalist
DX: I13.2 Hypertensive heart and chronic kidney disease with heart failure and with stage 5 chronic kidney disease, or end stage renal disease (principal); N18.6 End stage renal disease; I16.0 Hypertensive urgency; I50.9 Heart failure, unspecified; E87.5 Hyperkalemia; Z99.2 Dependence on renal dialysis; D63.1 Anemia in chronic kidney disease; F12.90 Cannabis use, unspecified, uncomplicated; F17.210 Nicotine dependence, cigarettes, uncomplicated; Z91.19 Patient's noncompliance with other medical treatment and regimen
CPT/HCPCS: 71010; 80048; 82550; 82552; 83735; 84100; 84155; 84484; 85025; 90935; 93005; 96374; J0360; J1644; J1815; J7030; Q4081

== ENCOUNTER 2016-09-27 02:03 | Inpatient (IN) | payer SELFPAY ==
[2016-09-27] VITALS (20 sets, daily range): BP systolic 150–263; BP diastolic 103–152; PULSE 68–100; RESP 16–34; TEMP 97.5–98.5; O2SAT 89–100
[~2016-09-27] VITALS: Ht 180.3 cm; Wt 86.3 kg
[2016-09-27] MEDS ORDERED: SODIUM CHLORIDE 0.9% FLUSH 5 ML FLUSH IVF PRN ×2 (02:15→04:30)
[2016-09-27 02:21] LABS: AUTOMATED NEUTROPHIL # 6.9 TH/MM3 (1.8-7.7); BASOPHIL # 0.1 TH/MM3 (0-0.2); BASOPHIL % 0.9 % (0.0-2.0); EOSINOPHIL # 0.5 TH/MM3 (0-0.4); EOSINOPHIL % 5.5 % (0.0-4.0); HEMATOCRIT 26.1 % (39.0-51.0); HEMO FLAGS DIFF FINAL; LYMPH % 16.5 % (9.0-44.0); LYMPHOCYTE # 1.6 TH/MM3 (1.0-4.8); MONO % 5.6 % (0.0-8.0); NEUT % 71.5 % (16.0-70.0); PLATELET COUNT 290 TH/MM3 (150-450); RED BLOOD COUNT 2.77 MIL/MM3 (4.50-5.90); RED CELL DISTRIBUTION WIDTH 17.9 % (11.6-17.2); WHITE BLOOD COUNT 9.6 TH/MM3 (4.0-11.0)
--- NOTE | 2016-09-27 02:28 | PD ---
HPI Chief Complaint: Respiratory Distress Time Seen by Provider: 02:06 Travel History International Travel<30 days: No Contact w/Intl Traveler<30days: No Traveled to known affect area: No History of Present Illness HPI Patient arrives by EMS due to shortness of breath. He is an end-stage renal disease patient. He follows with Dr. Manjarrez. He is scheduled to undergo dialysis on Monday however not followed at an outpatient dialysis center since his last admission to [facility] and his last dialysis was also during his last admission here, 5 days ago. He has constant short of breath which is severe now. He also describes chest pressure. EMS gave albuterol and Solu-Medrol which conferred minimal if any benefit. The patient refused CPAP. Upon arrival here he refused BiPAP. He has a history of end- stage renal disease for 9 years as well as hypertension and chronic noncompliance which he attributes to financial troubles. PFSH Past Medical History Hx Anticoagulant Therapy: No Autoimmune Disease: No Blood Disorders: No Cancer: No Cardiovascular Problems: Yes (HTN ) Chest Pain: Yes Congestive Heart Failure: Yes Diabetes: No Dialysis: Yes (SHUNT IN LEFT ARM) Diminished Hearing: No Endocrine: No Genitourinary: Yes (ESRD) Hypertension: Yes Immune Disorder: No Implanted Vascular Access Dvce: Yes (FISTULA LUE) Musculoskeletal: No Neurologic: No Psychiatric: No Reproductive: No Respiratory: No Renal Failure: Yes Seizures: Yes Tetanus Vaccination: Unknown Influenza Vaccination: Yes Past Surgical History Cardiac Surgery: Yes ("TOOK FLUID IN HIS HEART"(PERICARDIOCENTHESIS??)) Other Surgery: Yes (SHUNT TO L ARM ) Social History Alcohol Use: No Tobacco Use: Yes Substance Use: No (uses marijuana) Allergies-Medications (Allergen,Severity, Reaction): Coded Allergies: No Known Allergies (Verified , 09/27/16) Reported Meds & Prescriptions Reported Meds & Active Scripts Active Reported Hydralazine (Hydralazine HCl) 50 Mg Tab 50 Mg PO TID Take with a meal Labetalol (Labetalol HCl) 300 Mg Tab 300 Mg PO BID Clonidine (Clonidine HCl) 0.3 Mg Tab 0.3 Mg PO TID Review of Systems Except as stated in HPI: all other systems reviewed are Neg General / Constitutional: No: Fever Cardiovascular: Positive: Chest Pain or Discomfort Respiratory: Positive: Shortness of Breath Physical Exam Narrative GENERAL: 41-year-old male with markedly dyspneic speaks single words sentences reasonably well-nourished and well-developed SKIN: Warm and dry. HEAD: Atraumatic. Normocephalic. EYES: Pupils equal and round. No scleral icterus. No injection or drainage. ENT: No nasal bleeding or discharge. Mucous membranes pink and moist. NECK: Trachea midline. No JVD. CARDIOVASCULAR: Regular rhythm. Tachycardia. RESPIRATORY: Tachypnea. Rales present bilaterally. Dyspnea. GASTROINTESTINAL: Abdomen soft, non-tender, nondistended. Hepatic and splenic margins not palpable. MUSCULOSKELETAL: Extremities without clubbing, cyanosis, or edema. No obvious deformities. Left upper extremity arteriovenous fistula with palpable thrill. NEUROLOGICAL: Awake and alert. No obvious cranial nerve deficits. Motor grossly within normal limits. Five out of 5 muscle strength in the arms and legs. Normal speech. PSYCHIATRIC: Appropriate mood and affect; insight and judgment normal. Data Data Last Documented VS Vital Signs Date Time Temp Pulse Resp B/P Pulse Ox O2 Delivery O2 Flow Rate FiO2 09/27/16 03:30 100 09/27/16 03:30 98 09/27/16 02:19 92 30 Nasal Cannula 09/27/16 02:19 263/152 09/27/16 02:19 0.30 09/27/16 02:05 97.5 Orders Complete Blood Count With Diff (09/27/16 02:06) Comprehensive Metabolic Panel (09/27/16 02:06) Magnesium (Mg) (09/27/16 02:06) Arterial Blood Gas (Abg) (09/27/16 02:06) Iv Access Insert/Monitor (09/27/16 02:06) Electrocardiogram (09/27/16 02:06) Ecg Monitoring (09/27/16 02:06) Oximetry (09/27/16 02:06) Oxygen Administration (09/27/16 02:06) Chest, Single Ap (09/27/16 02:06) Sodium Chloride 0.9% Flush (Ns Flush) (09/27/16 02:15) Nitroglycerin-Dextrose Inj (Nitroglyceri (09/27/16 02:30) Lorazepam Inj (Ativan Inj) (09/27/16 02:30) Potassium, Serum (K) (09/27/16 06:18) Calcium Gluconate Inj (Calcium Gluconate (09/27/16 03:30) Insulin Human Regular Inj (Novolin R Inj (09/27/16 03:30) Dextrose 50% In Lia (Vial) Inj (D50w (Vi (09/27/16 03:30) Sodium Bicarbonate 8.4% Inj (Sodium Bica (09/27/16 03:30) Sodium Polysty Sulfate Liq (Kayexalate L (09/27/16 03:30) Propofol 1000 Mg/100 Ml Inj (Diprivan 10 (09/27/16 03:32) Etomidate Inj (Amidate Inj) (09/27/16 03:45) Rocuronium Inj (Zemuron Inj) (09/27/16 03:45) Propofol 1000 Mg/100 Ml Inj (Diprivan 10 (09/27/16 03:45) Chest, Single Ap (09/27/16 03:39) Albuterol Neb (Albuterol Neb) (09/27/16 03:45) Cbc No Diff, Includes Plts (09/28/16 05:00) Cbc No Diff, Includes Plts (09/29/16 05:00) Cbc No Diff, Includes Plts (09/30/16 05:00) Cbc No Diff, Includes Plts (10/01/16 05:00) Cbc No Diff, Includes Plts (10/02/16 05:00) Cbc No Diff, Includes Plts (10/03/16 05:00) Cbc No Diff, Includes Plts (10/04/16 05:00) Basic Metabolic Panel (Bmp) (09/28/16 05:00) Basic Metabolic Panel (Bmp) (09/29/16 05:00) Basic Metabolic Panel (Bmp) (09/30/16 05:00) Basic Metabolic Panel (Bmp) (10/01/16 05:00) Basic Metabolic Panel (Bmp) (10/02/16 05:00) Basic Metabolic Panel (Bmp) (10/03/16 05:00) Basic Metabolic Panel (Bmp) (10/04/16 05:00) Restraints Non-Violent MONA.Q2H.E (09/27/16 03:59) Neurological Rass Scale MONA.Q2H (09/27/16 03:59) Propofol 1000 Mg/100 Ml Inj (Diprivan 10 (09/27/16 04:00) RASS (09/27/16 03:59) ^ Infusion (09/27/16 03:59) Inpatient Certification (09/27/16 03:59) Bedside Glucose MONA.Q6H (09/27/16 03:59) ^ Blood Glucose Goal (Criteria (09/27/16 03:59) ^ Hypoglycemia 51 - 69 Mg/Dl (09/27/16 03:59) ^ Hypoglycemia 50 Mg/Dl Or < (09/27/16 03:59) ^ Notify Dr: Other (09/27/16 03:59) Dextrose 50% In Lia (Vial) Inj (D50w (Vi (09/27/16 04:00) Insulin Human Reg Supp Scale (Novolin R (09/27/16 06:00) Albuterol-Ipratropium Neb (Duoneb Neb) (09/27/16 04:00) Albuterol-Ipratropium Neb (Duoneb Neb) (09/27/16 04:00) ^ Elevate Head Of Bed (09/27/16 03:59) Chlorhexidine 0.12% Liq (Peridex 0.12% L (09/27/16 08:00) Resp Ventilation- Volume (09/27/16 ) Ventilator Weaning Readiness MONA.DAILY@0800 (09/27/16 03:59) Code Status (09/27/16 03:59) Vital Signs (Adult) MONA.Q1H (09/27/16 03:59) Activity Bed Rest (09/27/16 03:59) ^ Elevate Head Of Bed (09/27/16 03:59) Neuro Checks . ORDERED (09/27/16 03:59) Intake + Output Q1H (09/27/16 03:59) ^ Orogastric Tube (09/27/16 03:59) Diet Npo (09/27/16 Breakfast) Sodium Chloride 0.9% Flush (Ns Flush) (09/27/16 04:00) Sodium Chloride 0.9% Flush (Ns Flush) (09/27/16 09:00) Acetaminophen (Tylenol) (09/27/16 04:00) Ondansetron Inj (Zofran Inj) (09/27/16 04:00) Docusate Sodium-Senna (Prisca-Colace) (09/27/16 09:00) Payroll Technician / Telemetry (09/27/16 03:59) Heparin Inj (Heparin Inj) (09/27/16 06:00) Scd Bilateral/Knee High MONA.BID (09/27/16 03:59) ^ Initiate Protocol (09/27/16 03:59) ^ Instruction (09/27/16 03:59) Misc Nursing Information (09/27/16 04:00) Chlorhexidine 2% Cloth (Chlorhexidine 2% (09/27/16 04:00) Chlorhexidine 2% Cloth (Chlorhexidine 2% (09/27/16 04:00) Mrsa Pcr Surveillance (09/27/16 03:59) Admit Order (Ed Use Only) (09/27/16 04:13) Labs Laboratory Tests Test 09/27/16 09/27/16 02:10 03:00 White Blood Count 9.6 TH/MM3 Red Blood Count 2.77 MIL/MM3 Hemoglobin 8.9 GM/DL Hematocrit 26.1 % Mean Corpuscular Volume 94.0 FL Mean Corpuscular Hemoglobin 32.0 PG Mean Corpuscular Hemoglobin 34.0 % Concent Red Cell Distribution Width 17.9 % Platelet Count 290 TH/MM3 Mean Platelet Volume 8.6 FL Neutrophils (%) (Auto) 71.5 % Lymphocytes (%) (Auto) 16.5 % Monocytes (%) (Auto) 5.6 % Eosinophils (%) (Auto) 5.5 % Basophils (%) (Auto) 0.9 % Neutrophils # (Auto) 6.9 TH/MM3 Lymphocytes # (Auto) 1.6 TH/MM3 Monocytes # (Auto) 0.5 TH/MM3 Eosinophils # (Auto) 0.5 TH/MM3 Basophils # (Auto) 0.1 TH/MM3 CBC Comment DIFF FINAL Differential Comment Sodium Level 138 MEQ/L Potassium Level 6.4 MEQ/L Chloride Level 101 MEQ/L Carbon Dioxide Level 18.8 MEQ/L Anion Gap 18 MEQ/L Blood Urea Nitrogen 125 MG/DL Creatinine 14.86 MG/DL Estimat Glomerular Filtration 4 ML/MIN Rate Random Glucose 89 MG/DL Calcium Level 6.4 MG/DL Protein Corrected Calcium 6.3 MG/DL Magnesium Level 1.9 MG/DL Total Bilirubin 0.8 MG/DL Aspartate Amino Transf 143 U/L (AST/SGOT) Alanine Aminotransferase 104 U/L (ALT/SGPT) Alkaline Phosphatase 133 U/L Total Protein 7.5 GM/DL Albumin 3.6 GM/DL Blood Gas Puncture Site RT RADIAL Blood Gas Patient Temperature 98.6 Blood Gas HCO3 18 mmol/L Blood Gas Base Excess -6.1 mmol/L Blood Gas Oxygen Saturation 82 % Arterial Blood pH 7.38 Arterial Blood Partial 31 mmHg Pressure CO2 Arterial Blood Partial 58 mmHG Pressure O2 Arterial Blood Oxygen Content 9.4 Vol % Arterial Blood 4.0 % Carboxyhemoglobin Arterial Blood Methemoglobin 2.2 % Blood Gas Hemoglobin 8.1 G/DL Oxygen Delivery Device HIGH FLOW NASAL CAN Blood Gas Liter Flow 25 L/M Blood Gas Inspired Oxygen 70 % MDM Medical Decision Making Medical Screen Exam Complete: Yes Emergency Medical Condition: Yes Medical Record Reviewed: Yes Differential Diagnosis Volume overload secondary to hemodialysis noncompliance, electrolyte imbalance, anemia, flash pulmonary edema Narrative Course At approximately 3:30 AM the patient stated he could no longer breathing on his own. His O2 sat was approximately 96 on a high flow nasal cannula at percent 70 % FiO2 (25 L/m). He was then intubated with etomidate and rocuronium. Propofol for sedation. Dr. Pena of nephrology had been called about 30 minutes prior. 2 g calcium gluconate, 150 mEq bicarbonate, dextrose 50 and 10 units of insulin given along with Kayexalate for hyperkalemia at 6.4. EKG did show peaking of T waves in leads V3, V4 and V6. The patient will be admitted to the [facility]. Additional albuterol treatments ordered at 3:40 AM. CBC & BMP Diagram 09/27/16 02:10 EKG reveals a sinus rhythm at a rate of 95 w peaked T waves are observed in precordial leads AST 143 ALT 104 Alkaline phosphatase 133 Protein corrected calcium 6.3 Last 24 hours Impressions Chest X-Ray 09/27/16 0206 Signed Impressions: Service Date/Time: Tuesday, September 27, 2016 02:20 - CONCLUSION: 1. Cardiomegaly and findings of congestive heart failure. The findings have worsened when compared with the prior examination. MD Dr Loki Ovalle of nephrology called back at approx 400AM; HD RN activated stat. 0530 Pt resting comfortably on propofol gtt and janiya gtt. 193/119, HR90, 93%. Pt will go to [facility] for HD. Critical Care Narrative Aggregate critical care time was 40 minutes. Time to perform other separately billable procedures was not included in the critical care time. My time did not include minutes spent treating any other patients simultaneously or on activities that did not directly contribute to the patient's treatment. The services I provided to this patient were to treat and/or prevent clinically significant deterioration that could result in: Respiratory arrest, cardiac arrest, hypoxia, multiorgan failure I provided critical care services requiring my management, as noted below: Chart data review, documentation time, medication orders and management, vital sign assessments/reviewing monitor data, ordering and reviewing lab tests, ordering and interpreting/reviewing x-rays and diagnostic studies, care of the patient and discussion of the patient with the admitting physicians. Procedures Procedure Narrative After the risks and benefits were discussed the following procedure was performed: INTUBATION: The patient was put in optimal position for the procedure. Rapid sequence intubation was initiated by me using 20 milligrams of etomidate IV and 50 milligrams of rocuronium IV. The patient was intubated with a 8-0 cuffed endotracheal tube. Tube placement was confirmed by visualization of the tube and balloon passing through the cords, capnometry and subsequent chest x-ray. Breath sounds were equal and well aerated bilaterally postintubation. No breath sounds over stomach. Patient tolerated procedure well. Diagnosis Primary Impression: Acute respiratory failure with hypoxia Additional Impressions: Volume overload Qualified Code: E87.79 - Other hypervolemia Hypertensive emergency Hypocalcemia Pulmonary edema Qualified Code: J81.0 - Acute pulmonary edema Admitting Information Admitting Physician Requests: Nba Barcenas MD Sep 27, 2016 02:28
[2016-09-27] MEDS ORDERED: LORazepam 2 MG/ML VIAL IV PUSH ONE (02:30)
[2016-09-27] MEDS ORDERED: NITROGLYCERIN-DEXTROSE INJ 250 ML IV ONE (02:30)
--- NOTE | 2016-09-27 02:41 | RADRPT ---
EXAM DATE/TIME: 09/27/2016 02:20 [facility] COMPARISON: CHEST SINGLE AP, September 21, 2016, 15:44. INDICATIONS : Shortness of breath. MEDICAL HISTORY : Congestive heart failure. SURGICAL HISTORY : None. ENCOUNTER: Initial ACUITY: 1 week PAIN SCORE: 5/10 LOCATION: Bilateral chest FINDINGS: The cardiac silhouette is enlarged in transverse diameter. There are findings of congestive heart edgar lure with interstitial and alveolar opacity bilaterally. The findings have worsened when compared wit h the prior examination. No pleural effusions are identified. CONCLUSION: 1. Cardiomegaly and findings of congestive heart failure. The findings have worsened when compared wi th the prior examination. Antony Colvin MD on September 27, 2016 at 2:40 Board Certified Radiologist. This report was verified electronically.
[2016-09-27 03:15] LABS: BICARBONATE 18.8 MEQ/L (21.0-32.0); MAGNESIUM 1.9 MG/DL (1.5-2.5); POTASSIUM 6.4 MEQ/L (3.5-5.1); TOTAL BILIRUBIN ADULT 0.8 MG/DL (0.2-1.0)
[2016-09-27 03:17] LABS: CALCIUM-PROTEIN CORRECTED 6.3 MG/DL (8.5-10.1)
[2016-09-27] MEDS ORDERED: INSULIN HUMAN REGULAR 1,000 UNITS/10 ML VIAL IV PUSH ONE (03:30)
[2016-09-27] MEDS ORDERED: CALCIUM GLUCONATE 10% 1 GM/10 ML VIAL SLOW IVP ONE (03:30)
[2016-09-27] MEDS ORDERED: SODIUM POLYSTYRENE SULFONATE SUSP 15 GM/60 ML CUP PO ONE (03:30)
[2016-09-27] MEDS ORDERED: SODIUM BICARBONATE 8.4% SOLN 50 MEQ/50 ML VIAL SLOW IVP ONE (03:30)
[2016-09-27] MEDS ORDERED: DEXTROSE 50% IN WATER 50 ML VIAL(D50) IV PUSH ONE (03:30)
[2016-09-27] MEDS ORDERED: PROPOFOL 1000 MG/100 ML INJ 100 ML ONE (03:32)
[2016-09-27] MEDS ORDERED: ETOMIDATE 20 MG/10 ML VIAL IV PUSH ONE (03:45)
[2016-09-27] MEDS ORDERED: ROCURONIUM INJ 50 MG/5 ML VIAL IV ONE (03:45)
[2016-09-27] MEDS: RESP: ALBUTEROL 2.5 MG/3 ML NEB (SCH) INH (03:57)
[2016-09-27] MEDS ORDERED: ACETAMINOPHEN 325 MG TAB PO PRN ×2 (04:00→04:30)
[2016-09-27] MEDS ORDERED: RESP: ALBUTEROL 2.5 MG/IPRATROPIUM 0.5 MG NEB (PRN) INH (04:00)
[2016-09-27] MEDS ORDERED: PROPOFOL 1000 MG/100 ML INJ 100 ML IV SCH (04:00)
[2016-09-27] MEDS ORDERED: SODIUM CHLORIDE 0.9% FLUSH 5 ML FLUSH IV FLUSH PRN (04:00)
[2016-09-27] MEDS: RESP: ALBUTEROL 2.5 MG/IPRATROPIUM 0.5 MG NEB (SCH) INH ×4 (04:00→20:44)
[2016-09-27] MEDS: CHLORHEXIDINE GLUCONATE 2 % 1 PACK (2 CLOTHS) TOP SCH (04:00)
[2016-09-27] MEDS ORDERED: ONDANSETRON HCL 4 MG/2 ML VIAL IV PRN ×2 (04:00→04:30)
[2016-09-27] MEDS ORDERED: CHLORHEXIDINE GLUCONATE 2 % 1 PACK (2 CLOTHS) TOP PRN (04:00)
[2016-09-27] MEDS ORDERED: MISCELLANEOUS NURSING INFORMATION XX SCH (04:00)
--- NOTE | 2016-09-27 04:08 | RADRPT ---
EXAM DATE/TIME: 09/27/2016 03:51 [facility] COMPARISON: CHEST SINGLE AP, September 27, 2016, 2:20. INDICATIONS : Post intubation. MEDICAL HISTORY : Congestive heart failure. SURGICAL HISTORY : None. ENCOUNTER: Subsequent ACUITY: 1 day PAIN SCORE: Non-responsive. LOCATION: Bilateral chest FINDINGS: Endotracheal tube is in good position above the sabrina. A nasogastric tube is in place with its tip i n the stomach. The cardiac silhouette is enlarged in transverse diameter. There are findings of conge stive heart failure with interstitial and alveolar opacity bilaterally. No pleural effusions are iden tified. CONCLUSION: 1. Satisfactory position of endotracheal tube as above. 2. Cardiomegaly and findings of congestive heart failure. The findings have worsened when compared wi th the prior examination. Antony Colvin MD on September 27, 2016 at 4:06 Board Certified Radiologist. This report was verified electronically.
[2016-09-27 04:16] LABS: BLOOD GAS BASE EXCESS -6.1 mmol/L (-2-2); BLOOD GAS HCO3 18 mmol/L (22-26); BLOOD GAS METHEMOGLOBIN 2.2 % (0-2); BLOOD GAS O2 HGB SATURATION 82 % (90-100); BLOOD GAS OXYGEN CONTENT 9.4 Vol % (12.0-20.0); BLOOD GAS PCO2 31 mmHg (38-42); BLOOD GAS PO2 58 mmHG (61-120); BLOOD GAS TOTAL HGB 8.1 G/DL (12.0-16.0); TEMP CORR TO 98.6
[2016-09-27 04:17] LABS: CRITICAL VALUE YES; DRAW SITE RT RADIAL; FIO2 70 %; LITER FLOW 25 L/M; NUMBER OF ARTERIAL PUNCTURES 1; OXYGEN DEVICE HIGH FLOW NASAL CAN; STAT YES; ULNAR PULSE PRESENT
--- NOTE | 2016-09-27 04:17 | HHI.HP ---
[facility] Service Critical Care Medicine Primary Care Physician No Primary Care Physician Admission Diagnosis Diagnosis: Chief Complaint: shortness of breath Travel History International Travel<30 Days: No Contact w/Intl Traveler <30 Da: No Traveled to Known Affected Are: No History of Present Illness This is a 41-year-old male who arrived by EMS to shortness of breath. He is apparently an end-stage renal disease patient who is followed by Dr. Manjarrez and is usually on Monday dialysis. However, he missed his dialysis appointment today. He was initially given Solu-Medrol and albuterol without benefit. The patient refused CPAP in the emergency department. His laboratory data is remarkable for a white count of 9000, creatinine of 14, and potassium of 6.4. His chest x-ray is notable for bilateral congestion suggestive of pulmonary edema. Due to the fact the patient refused BiPAP, he continued to worsen from a hypoxia standpoint. He was intubated for hypoxic respiratory failure. Critical-care medicine is consulted to evaluate and manage his life-threatening hyperkalemia and his acute intravascular volume overload with acute hypoxic respiratory failure. Review of Systems ROS Limitations: Clinical Condition, Intubated, Altered Mental Status Past Family Social History Allergies: Coded Allergies: No Known Allergies (Verified , 09/27/16) Past Medical History Unobtainable secondary to clinical condition. Per chart review: End-stage renal disease requiring hemodialysis Congestive heart failure, unknown type Left arm fistula Hypertension Seizure Past Surgical History Unobtainable secondary to clinical condition. Per chart review: Questionable history of pericardiocentesis Left arm shunt Reported Medications Unobtainable secondary to clinical condition. Per chart review: Hydralazine (Hydralazine HCl) 50 Mg Tab 50 Mg PO TID Take with a meal Labetalol (Labetalol HCl) 300 Mg Tab 300 Mg PO BID Clonidine (Clonidine HCl) 0.3 Mg Tab 0.3 Mg PO TID Active Ordered Medications See MAR Family History Unobtainable secondary to clinical condition. unlikely to be contributory to his acute illness. Social History Unobtainable secondary to clinical condition. Per chart review: Positive for tobacco. Positive for marijuana. Physical Exam Vital Signs Vital Signs Date Time Temp Pulse Resp B/P Pulse Ox O2 Delivery O2 Flow Rate FiO2 09/27/16 02:19 92 30 93 Nasal Cannula 30 09/27/16 02:19 89 26 263/152 93 Nasal Cannula 70 2/14/17 02:19 93 Nasal Cannula 0.30 70 09/27/16 02:19 30 09/27/16 02:10 93 High Flow Nasal Cannula 30.00 70 09/27/16 02:05 97.5 100 34 258/138 89 Physical Exam Middle-aged male, lying in bed, intubated, sedated. Hypertensive. Bilateral crackles in all lung hernandez. Left arm fistula with good thrill. Laboratory Laboratory Tests Test 09/27/16 02:10 White Blood Count 9.6 Red Blood Count 2.77 Hemoglobin 8.9 Hematocrit 26.1 Mean Corpuscular Volume 94.0 Mean Corpuscular Hemoglobin 32.0 Mean Corpuscular Hemoglobin 34.0 Concent Red Cell Distribution Width 17.9 Platelet Count 290 Mean Platelet Volume 8.6 Neutrophils (%) (Auto) 71.5 Lymphocytes (%) (Auto) 16.5 Monocytes (%) (Auto) 5.6 Eosinophils (%) (Auto) 5.5 Basophils (%) (Auto) 0.9 Neutrophils # (Auto) 6.9 Lymphocytes # (Auto) 1.6 Monocytes # (Auto) 0.5 Eosinophils # (Auto) 0.5 Basophils # (Auto) 0.1 CBC Comment DIFF FINAL Differential Comment Sodium Level 138 Potassium Level 6.4 Chloride Level 101 Carbon Dioxide Level 18.8 Anion Gap 18 Blood Urea Nitrogen 125 Creatinine 14.86 Estimat Glomerular Filtration 4 Rate Random Glucose 89 Calcium Level 6.4 Protein Corrected Calcium 6.3 Magnesium Level 1.9 Total Bilirubin 0.8 Aspartate Amino Transf 143 (AST/SGOT) Alanine Aminotransferase 104 (ALT/SGPT) Alkaline Phosphatase 133 Total Protein 7.5 Albumin 3.6 Result Diagram: 09/27/16 0210 09/27/16 0210 Assessment and Plan Assessment and Plan Assessment: This is a 41-year-old male with history of end-stage renal disease on intermittent hemodialysis who missed his dialysis appointment today and now presents with acute intravascular volume overload, or edema, and acute hypoxic respiratory failure along with acute life-threatening hyperkalemia. Nephrology is been called we will pursue emergent dialysis for his hyperkalemia and volume overload. He will be admitted to the ICU. He is dialysis, we will attempt to wean x-ray patient. For now he remains critically ill in multiorgan system dysfunction. Active problems: Acute intravascular volume overload Pulmonary edema Acute Life-threatening hyperkalemia Plan: Emergent consult nephrology Emergent dialysis Once emergent dialysis is completed dialysis we will work towards weaning the patient from mechanical ventilation. Vent bundle Head of bed at 30 Wean FiO2 for goal SPO2 greater than 90% Nothing by mouth Propofol for sedation, goal RASS -2 Daily CBC, BMP Does not meet evidence based criteria for GI prophylaxis. If he is unable to separate from mechanical ventilation today, we will add PPI that time SCDs and subcutaneous heparin for DVT prophylaxis Admit to the ICU This patient remains critically ill with one or more organ systems which are or may become a threat to life. I have spent in excess of 32 minutes discontinuously in the care and management of this patient. This time is exclusive of procedures, and includes, but is not limited to, evaluation of the patient, review of the medical record, discussions with family, consultants, nursing staff, or respiratory therapy, and documentation in the medical record. Code Status Full Code Chao Ramsay MD Sep 27, 2016 04:17
[2016-09-27] MEDS ORDERED: SODIUM CHLOR 0.9% 1000 ML INJ 1,000 ML IV PRN ×2 (04:20)
[2016-09-27] MEDS ORDERED: diphenhydrAMINE HCL 25 MG CAP PO PRN (04:30)
[2016-09-27] MEDS ORDERED: NITROGLYCERIN 0.4 MG SL 25 TABS/BTL SL PRN (04:30)
[2016-09-27] MEDS ORDERED: ALBUMIN HUMAN 25% 25 GM/100 ML BAGP IV PRN (04:30)
[2016-09-27] MEDS ORDERED: HEPARIN SODIUM - IV 10,000 UNITS/10 ML VIAL IVF PRN (04:30)
[2016-09-27] MEDS ORDERED: cloNIDine HCL 0.1 MG TAB PO PRN (04:30)
[2016-09-27] MEDS ORDERED: MANNITOL 12.5 GM/50 ML VIAL IV PRN (04:30)
[2016-09-27] MEDS ORDERED: fentaNYL DRIP 250 ML ONE (04:43)
[2016-09-27] MEDS ORDERED: fentaNYL CITRATE 250 MCG/5 ML AMP ONE (04:45)
[2016-09-27] MEDS: PROPOFOL 1000 MG/100 ML INJ 100 ML IV SCH ×2 (05:05→09:13)
[2016-09-27 05:28] LABS: BLOOD GAS BASE EXCESS -6.3 mmol/L (-2-2); BLOOD GAS CARBOXYHEMOGLOBIN 3.3 % (0-4); BLOOD GAS HCO3 20 mmol/L (22-26); BLOOD GAS METHEMOGLOBIN 2.2 % (0-2); BLOOD GAS O2 HGB SATURATION 84 % (90-100); BLOOD GAS OXYGEN CONTENT 9.8 Vol % (12.0-20.0); BLOOD GAS PCO2 50 mmHg (38-42); BLOOD GAS PO2 74 mmHG (61-120); BLOOD GAS TOTAL HGB 8.2 G/DL (12.0-16.0); TEMP CORR TO 98.6
[2016-09-27 05:29] LABS: CRITICAL VALUE YES; DRAW SITE RT RADIAL; FIO2 100 %; NUMBER OF ARTERIAL PUNCTURES 1; OXYGEN DEVICE VENTILATOR; STAT YES; ULNAR PULSE PRESENT; VENT SETTINGS AC14/550 5 PEEP
[2016-09-27] MEDS ORDERED: fentaNYL 2,500 MCG/NS 250 ML IV SCH (05:30)
[2016-09-27] MEDS ORDERED: fentaNYL CITRATE 250 MCG/5 ML AMP IV ONE (05:30)
[2016-09-27] MEDS ORDERED: INSULIN NovoLIN REGULAR SUPPLEMENTAL SCALE SQ SCH (06:00)
[2016-09-27] MEDS: HEPARIN SODIUM - SQ 10,000 UNITS/ML VIAL SQ SCH ×3 (06:05→22:53)
[2016-09-27] MEDS: DEXTROSE 50% IN WATER 50 ML VIAL(D50) IV PUSH PRN ×5 (06:06→08:11)
[2016-09-27] MEDS: SODIUM CHLOR 0.9% 1000 ML INJ 1,000 ML IV PRN (06:31)
[2016-09-27] MEDS: EPOETIN ALFA 10,000 UNITS/ML VIAL IV PRN (06:31)
[2016-09-27] MEDS: GELATIN 12 MM/7 MM FOAM TOP PRN (06:32)
[2016-09-27] MEDS: CHLORHEXIDINE 0.12% (ORAL KIT) 15 ML CUP MT SCH ×2 (08:00→20:00)
[2016-09-27] MEDS: INSULIN NovoLIN REGULAR SUPPLEMENTAL SCALE SQ SCH ×7 (08:30→22:45)
[2016-09-27] MEDS ORDERED: DEXTROSE 50% IN WATER 50 ML VIAL(D50) IV PUSH PRN (08:45)
[2016-09-27] MEDS ORDERED: GLUCAGON 1 MG/ML VIAL OTHER PRN (08:45)
[2016-09-27] MEDS ORDERED: DEXT 5%-NACL 0.9% 1000 ML INJ 1,000 ML IV SCH (08:45)
[2016-09-27] MEDS: SODIUM CHLORIDE 0.9% FLUSH 5 ML FLUSH IV FLUSH SCH ×2 (09:00→19:39)
[2016-09-27] MEDS: DOCUSATE SODIUM 50 MG/SENNA 8.6 MG TAB PO SCH ×2 (09:13→19:39)
--- NOTE | 2016-09-27 09:27 | PD.CONS ---
HPI Service Nephrology Consult Requested By Dr. Guerra Reason for Consult ESRD needs dialysis Primary Care Physician No Primary Care Physician History of Present Illness Patient is a 41-year-old male with history of end-stage renal disease, hypertension, noncompliance with hemodialysis, he missed his hemodialysis treatment and has not been to dialysis Center for more then 9 or 10 days, he came in last night with increasing shortness of breath hypertensive urgency and has to be intubated due to volume overload. He also has hyperkalemia as well as uremia. Review of Systems ROS Limitations: Clinical Condition Past Family Social History Allergies: Coded Allergies: *MDRO Multi-Drug Resistant Organism (Verified Adverse Reaction, Unknown, MRSA, 09/27/16) MRSA PCR screen POSITIVE - 09/27/16 Past Medical History Noncompliance Multiple admissions Fluid overload End-stage renal disease Hypertension Anemia Past Surgical History AV fistula left forearm Pericardiocentesis Reported Medications Reported Meds & Active Scripts Active Reported Hydralazine (Hydralazine HCl) 50 Mg Tab 50 Mg PO TID Take with a meal Labetalol (Labetalol HCl) 300 Mg Tab 300 Mg PO BID Clonidine (Clonidine HCl) 0.3 Mg Tab 0.3 Mg PO TID Active Ordered Medications Current Medications Medications (Trade) Dose Ordered Sig/Luis Daniel Route Start Time Stop Time Status Last Admin Propofol 100 ml @ 0 mls/hr TITRATE IV 09/27/16 03:45 09/27/16 05:05 (Diprivan 1000 Mg/100ml Inj) 100 ml @ 0 mls/hr TITRATE IV 09/27/16 04:00 (Peridex 0.12% Liq) 15 ml BID@08,20 MT 09/27/16 08:00 (NS Flush) 2 ml UNSCH PRN IV FLUSH 09/27/16 04:00 (NS Flush) 2 ml BID IV FLUSH 09/27/16 09:00 (Tylenol) 650 mg Q6H PRN PO 09/27/16 04:00 (Zofran Inj) 4 mg Q6H PRN IV 09/27/16 04:00 (Prisca-Colace) 2 tab BID PO 09/27/16 09:00 (Heparin Inj) 5,000 units Q8HR SQ 09/27/16 06:00 09/27/16 06:05 Miscellaneous Information 1 Q361D XX 09/27/16 04:00 (Chlorhexidine 2% Cloth) 3 pack Taper DAILY@04 TOP 09/27/16 04:00 09/23/17 03:59 Chlorhexidine Gluconate 3 pack 3 pack UNSCH PRN TOP 09/27/16 04:00 (NS 1000 ml Inj) 1,000 ml @ 0 mls/hr Q0M PRN IV 09/27/16 04:20 09/27/16 06:31 Heparin Sodium (Porcine) 8000 units 8,000 units UNSCH PRN IVF 09/27/16 04:30 Sodium Chloride 1,000 ml @ 200 mls/hr Q5H PRN IV 09/27/16 04:20 (NS 1000 ml Inj) 1,000 ml @ 0 mls/hr Q0M PRN IV 09/27/16 04:20 (Mannitol Inj) 12.5 gm UNSCH PRN IV 09/27/16 04:30 (Albumin 25% Inj) 25 gm UNSCH PRN IV 09/27/16 04:30 (NS Flush) 5 ml UNSCH PRN IVF 09/27/16 04:30 (Zofran Inj) 4 mg UNSCH PRN IV 09/27/16 04:30 (Tylenol) 650 mg UNSCH PRN PO 09/27/16 04:30 (Benadryl) 25 mg UNSCH PRN PO 09/27/16 04:30 (Nitrostat Sl) 0.4 mg UNSCH PRN SL 09/27/16 04:30 (Catapres) 0.1 mg UNSCH PRN PO 09/27/16 04:30 (Epogen Inj) 10,000 units UNSCH PRN IV 09/27/16 04:30 09/27/16 06:31 Gelatin 1 foam 1 foam UNSCH PRN TOP 09/27/16 04:30 09/27/16 06:32 (fentaNYL DRIP) 250 ml @ 0 mls/hr TITRATE IV 09/27/16 05:30 09/27/16 05:32 (D50w (Vial) Inj) 25 ml UNSCH PRN IV PUSH 09/27/16 08:45 (Glucagon Inj) 1 mg UNSCH PRN OTHER 09/27/16 08:45 Insulin Human Regular 1 1 Q2H SQ 09/27/16 08:45 (D5W-NS 1000 ml Inj) 1,000 ml @ 50 mls/hr Q20H IV 09/27/16 08:45 Family History Noncontributory Social History History of smoking and use marijuana Physical Exam Vital Signs Vital Signs Date Time Temp Pulse Resp B/P Pulse Ox O2 Delivery O2 Flow Rate FiO2 09/27/16 08:32 100 70 09/27/16 06:20 97.8 80 16 197/132 100 09/27/16 06:20 92 100 09/27/16 06:05 100 100 09/27/16 05:09 89 16 190/119 93 Ventilator 100 09/27/16 03:30 100 09/27/16 03:30 98 100 09/27/16 02:19 92 30 93 Nasal Cannula 30 09/27/16 02:19 89 26 263/152 93 Nasal Cannula 70 09/27/16 02:19 93 Nasal Cannula 0.30 70 09/27/16 02:19 30 09/27/16 02:10 93 High Flow Nasal Cannula 30.00 70 09/27/16 02:05 97.5 100 34 258/138 89 Physical Exam GENERAL: Well-nourished, well-developed intubated patient. SKIN: Warm and dry. HEAD: Normocephalic. EYES: No scleral icterus. No injection or drainage. NECK: Supple, trachea midline. No JVD or lymphadenopathy. CARDIOVASCULAR: Regular rate and rhythm without murmurs, gallops, or rubs. RESPIRATORY: Breath sounds equal bilaterally. No accessory muscle use. GASTROINTESTINAL: Abdomen soft, non-tender, nondistended. EXTREMITIES: No cyanosis, or edema. AV fistula left forearm there is a scab NEUROLOGICAL: Intubated on sedation. Laboratory Laboratory Tests Test 09/27/16 09/27/16 09/27/16 09/27/16 02:10 03:00 04:30 05:59 White Blood Count 9.6 Red Blood Count 2.77 Hemoglobin 8.9 Hematocrit 26.1 Mean Corpuscular Volume 94.0 Mean Corpuscular Hemoglobin 32.0 Mean Corpuscular Hemoglobin 34.0 Concent Red Cell Distribution Width 17.9 Platelet Count 290 Mean Platelet Volume 8.6 Neutrophils (%) (Auto) 71.5 Lymphocytes (%) (Auto) 16.5 Monocytes (%) (Auto) 5.6 Eosinophils (%) (Auto) 5.5 Basophils (%) (Auto) 0.9 Neutrophils # (Auto) 6.9 Lymphocytes # (Auto) 1.6 Monocytes # (Auto) 0.5 Eosinophils # (Auto) 0.5 Basophils # (Auto) 0.1 CBC Comment DIFF FINAL Differential Comment Sodium Level 138 Potassium Level 6.4 5.7 Chloride Level 101 Carbon Dioxide Level 18.8 Anion Gap 18 Blood Urea Nitrogen 125 Creatinine 14.86 Estimat Glomerular Filtration 4 Rate Random Glucose 89 Calcium Level 6.4 Protein Corrected Calcium 6.3 Magnesium Level 1.9 Total Bilirubin 0.8 Aspartate Amino Transf 143 (AST/SGOT) Alanine Aminotransferase 104 (ALT/SGPT) Alkaline Phosphatase 133 Total Protein 7.5 Albumin 3.6 Blood Gas Puncture Site RT RADIAL RT RADIAL Blood Gas Patient Temperature 98.6 98.6 Blood Gas HCO3 18 20 Blood Gas Base Excess -6.1 -6.3 Blood Gas Oxygen Saturation 82 84 Arterial Blood pH 7.38 7.23 Arterial Blood Partial 31 50 Pressure CO2 Arterial Blood Partial 58 74 Pressure O2 Arterial Blood Oxygen Content 9.4 9.8 Arterial Blood 4.0 3.3 Carboxyhemoglobin Arterial Blood Methemoglobin 2.2 2.2 Blood Gas Hemoglobin 8.1 8.2 Oxygen Delivery Device HIGH FLOW VENTILATOR NASAL CAN Blood Gas Liter Flow 25 Blood Gas Inspired Oxygen 70 100 Blood Gas Ventilator Setting AC14/550 5 PEEP Result Diagram: 09/27/1620909/27/16 0559 Imaging Last Impressions Chest X-Ray 09/27/16 0339 Signed Impressions: Service Date/Time: Tuesday, September 27, 2016 03:51 - CONCLUSION: 1. Satisfactory position of endotracheal tube as above. 2. Cardiomegaly and findings of congestive heart failure. The findings have worsened when compared with the prior examination. Antony Colvin MD Assessment and Plan Problem List: (1) ESRD (end stage renal disease) on dialysis Plan: Patient has multiple visit to this hospital due to noncompliance and remains high risk patient for cardiac arrest, he has been intubated. Hemodialysis was done urgently and 6 L were removed and he tolerated the procedure well continue supportive care and possible extubation, he has been educated about about continuing hemodialysis on several occasions and this will be emphasized again once he is more alert. (2) Pulmonary edema Plan: Resolved with hemodialysis (3) Hypertensive emergency Plan: Blood pressure improved 148/104 (4) Acute respiratory failure with hypoxia Plan: On ventilator (5) Hyperkalemia Plan: Treated with hemodialysis Problem Qualifiers (1) Pulmonary edema: Qualified Code: J81.0 - Acute pulmonary edema Cole Manjarrez MD Sep 27, 2016 09:27
--- NOTE | 2016-09-27 11:34 | EKG ---
Date Performed: 09/27/2016 Time Performed: 02:10:17 PTAGE: 41 years EKG: Sinus rhythm POSSIBLE LVH BY VOLTAGE MILDLY PROLONGED QT INTERVAL SLIGHT VARIATION IN THE REPOLARIZATION CHANGES SINCE THE PRIOR TRACING BORDERLINE ECG PREVIOUS TRACING : 09/22/2016 11.42 DOCTOR: Yoav Higgins Interpretating Date/Time 09/27/2016 11:32:59
[2016-09-27] MEDS: hydrALAZINE HCL 20 MG/ML VIAL IV PUSH PRN ×2 (11:51→16:11)
--- NOTE | 2016-09-27 12:51 | RADRPT ---
EXAM DATE/TIME: 09/27/2016 11:10 [facility] COMPARISON: No previous studies available for comparison. INDICATIONS : Increased lab values. MEDICAL HISTORY : Hypertension. Seizures. Congestive heart failure. End stage renal disease. Dialysis. SURGICAL HISTORY : Cardiac surgery. AV fistula, left arm. ENCOUNTER: Initial ACUITY: 1 day PAIN SCORE: Nonresponsive. LOCATION: Bilateral upper quadrant MEASUREMENTS: LIVER: 19.2 cm length COMMON DUCT: 6 mm RIGHT KIDNEY: 6.8 x 3.0 x 5.0 cm SPLEEN: 9.6 cm length FINDINGS: LIVER: The liver is prominent measuring up to 19 cm with no focal mass or ductal dilatation. COMMON DUCT: No intraluminal mass or stone visualized. GALLBLADDER: O. focal echogenic gallstones are noted measuring up to 1.5 cm. There is no wall thickening or perich olecystic fluid. PANCREAS: The pancreatic duct appears mildly prominent measuring 3-4 mm in size. There is no evidence of a mass . The head and tail are not fully visualized due to overlying bowel gas. RIGHT KIDNEY: The right kidney is small and atrophic in appearance with small. Echogenic nonobstructive calculus in the central kidney measuring 8 x 4 x 7 mm. There is a small cyst also noted measuring 1.8 x 1.6 x 1. 6 cm. SPLEEN: No focal lesion. CONCLUSION: 1. Cholelithiasis with multiple small gallstones with no definite gallbladder wall thickening or mis cholecystic fluid. 2. The pancreatic duct appears mildly prominent measuring 3-4 mm with no definite pancreatic mass see n in the visualized portion. 3. The right kidney is small and atrophic in appearance small cystic structures an apparent small marissa culus. 4. Liver is prominent measuring up to 19 cm with no focal lesion. Reed Garcia MD on September 27, 2016 at 12:46 Board Certified Radiologist. This report was verified electronically.
[2016-09-27 12:56] LABS: BICARBONATE 25.8 MEQ/L (21.0-32.0); POTASSIUM 4.2 MEQ/L (3.5-5.1)
[2016-09-27 12:59] LABS: TOTAL BILIRUBIN ADULT 0.8 MG/DL (0.2-1.0)
[2016-09-27 13:17] LABS: CALCIUM-PROTEIN CORRECTED 6.5 MG/DL (8.5-10.1)
[2016-09-27] MEDS ORDERED: METOPROLOL TARTRATE 5 MG/5 ML VIAL ONE (13:42)
[2016-09-27] MEDS ORDERED: cloNIDine HCL 0.2 MG TAB PO ONE (14:15)
[2016-09-27] MEDS ORDERED: METOPROLOL TARTRATE 5 MG/5 ML VIAL IV PUSH ONE (14:15)
[2016-09-27] MEDS ORDERED: hydrALAZINE HCL 20 MG/ML VIAL IV PUSH ONE (14:45)
[2016-09-27 15:01] LABS: BLOOD GAS BASE EXCESS -0.6 mmol/L (-2-2); BLOOD GAS CARBOXYHEMOGLOBIN 2.3 % (0-4); BLOOD GAS HCO3 23 mmol/L (22-26); BLOOD GAS METHEMOGLOBIN 1.3 % (0-2); BLOOD GAS O2 HGB SATURATION 94 % (90-100); BLOOD GAS OXYGEN CONTENT 11.2 Vol % (12.0-20.0); BLOOD GAS PCO2 37 mmHg (38-42); BLOOD GAS PO2 99 mmHg (61-120); BLOOD GAS TOTAL HGB 8.4 G/DL (12.0-16.0); TEMP CORR TO 98.6
[2016-09-27 15:02] LABS: CRITICAL VALUE NO; DRAW SITE RT RADIAL; FIO2 40 %; NUMBER OF ARTERIAL PUNCTURES 1; OXYGEN DEVICE VENTILATOR; STAT NO; ULNAR PULSE PRESENT; VENT SETTINGS CPAP 5/10PS
[2016-09-27] MEDS ORDERED: CALCIUM GLUCONATE INJ 1 GM in SODIUM CHLORIDE 0.9% INJ 100 ML IV ONE (16:00)
[2016-09-27] MEDS ORDERED: DEXTROSE 10% INJ 1,000 ML IV SCH (16:00)
[2016-09-27] MEDS ORDERED: cloNIDine HCL 0.2 MG TAB PO SCH (17:00)
[2016-09-27] MEDS: cloNIDine HCL 0.3 MG TAB PO SCH (17:07)
[2016-09-27] MEDS: hydrALAZINE HCL 50 MG TAB PO SCH ×2 (17:09→22:53)
[2016-09-27] MEDS: LABETALOL HCL 200 MG TAB PO SCH (19:38)
[2016-09-27] MEDS: hydrALAZINE HCL 20 MG/ML VIAL IV PRN ×2 (20:10→20:56)
[2016-09-28] VITALS (14 sets, daily range): BP systolic 135–175; BP diastolic 91–113; PULSE 62–86; RESP 18–28; TEMP 98–98.5; O2SAT 98–100
[2016-09-28] MEDS: hydrALAZINE HCL 20 MG/ML VIAL IV PRN (00:42)
[2016-09-28] MEDS: INSULIN NovoLIN REGULAR SUPPLEMENTAL SCALE SQ SCH ×7 (00:45→22:45)
[2016-09-28] MEDS: LABETALOL HCL 200 MG TAB PO SCH ×3 (02:43→18:28)
[2016-09-28] MEDS: LABETALOL HCL 100 MG/20 ML VIAL IV PRN ×4 (02:43→23:34)
[2016-09-28] MEDS: RESP: ALBUTEROL 2.5 MG/IPRATROPIUM 0.5 MG NEB (SCH) INH ×4 (03:24→21:13)
[2016-09-28] MEDS: CHLORHEXIDINE GLUCONATE 2 % 1 PACK (2 CLOTHS) TOP SCH (04:00)
[2016-09-28] MEDS: hydrALAZINE HCL 50 MG TAB PO SCH ×3 (05:30→21:11)
[2016-09-28] MEDS: HEPARIN SODIUM - SQ 10,000 UNITS/ML VIAL SQ SCH ×3 (05:31→21:11)
[2016-09-28 06:12] LABS: AUTOMATED NEUTROPHIL # 5.1 TH/MM3 (1.8-7.7); BASOPHIL # 0.1 TH/MM3 (0-0.2); BASOPHIL % 1.3 % (0.0-2.0); EOSINOPHIL # 0.5 TH/MM3 (0-0.4); HEMATOCRIT 23.4 % (39.0-51.0); HEMO FLAGS DIFF FINAL; LYMPH % 12.2 % (9.0-44.0); LYMPHOCYTE # 0.9 TH/MM3 (1.0-4.8); MEAN CELL VOLUME 94.2 FL (80.0-100.0); MONO % 7.9 % (0.0-8.0); NEUT % 71.6 % (16.0-70.0); PLATELET COUNT 257 TH/MM3 (150-450); RED BLOOD COUNT 2.49 MIL/MM3 (4.50-5.90); RED CELL DISTRIBUTION WIDTH 18.3 % (11.6-17.2); WHITE BLOOD COUNT 7.1 TH/MM3 (4.0-11.0)
[2016-09-28 06:47] LABS: BICARBONATE 24.4 MEQ/L (21.0-32.0); POTASSIUM 4.6 MEQ/L (3.5-5.1); TOTAL BILIRUBIN ADULT 0.7 MG/DL (0.2-1.0)
[2016-09-28 07:01] LABS: CALCIUM-PROTEIN CORRECTED 6.6 MG/DL (8.5-10.1)
[2016-09-28] MEDS: CHLORHEXIDINE 0.12% (ORAL KIT) 15 ML CUP MT SCH ×2 (08:00→20:00)
[2016-09-28] MEDS: SODIUM CHLORIDE 0.9% FLUSH 5 ML FLUSH IV FLUSH SCH ×2 (08:02→21:00)
[2016-09-28] MEDS: cloNIDine HCL 0.3 MG TAB PO SCH ×3 (08:02→18:28)
[2016-09-28] MEDS: DOCUSATE SODIUM 50 MG/SENNA 8.6 MG TAB PO SCH ×2 (08:03→21:00)
--- NOTE | 2016-09-28 08:43 | HHI.CCPN ---
Subjective Remarks/Hospital Course This is a 41-year-old male who arrived by EMS to shortness of breath. He is apparently an end-stage renal disease patient who is followed by Dr. Manjarrez and is usually on Monday dialysis. However, he missed his dialysis appointment today. He was initially given Solu-Medrol and albuterol without benefit. The patient refused CPAP in the emergency department. His laboratory data is remarkable for a white count of 9000, creatinine of 14, and potassium of 6.4. His chest x-ray is notable for bilateral congestion suggestive of pulmonary edema. Due to the fact the patient refused BiPAP, he continued to worsen from a hypoxia standpoint. He was intubated for hypoxic respiratory failure. Critical-care medicine is consulted to evaluate and manage his life-threatening hyperkalemia and his acute intravascular volume overload with acute hypoxic respiratory failure. 09/28 Patient s/p extubation yesterday on 4L oxygen with good sats. s/p HD yesterday with removal 6L. Hypertensive. Afebrile. Objective Vital Signs Date Time Temp Pulse Resp B/P Pulse Ox O2 Delivery O2 Flow Rate FiO2 09/28/16 06:00 63 09/28/16 04:00 98.3 28 135/91 100 09/27/16 20:44 Nasal Cannula 4.00 09/27/16 11:45 45 Intake and Output 09/27/16 09/27/16 09/28/16 08:00 16:00 00:00 Intake Total 574 ml 1021 ml Output Total 500 ml 6000 ml Balance -500 ml -5426 ml 1021 ml Result Diagram: 09/28/16 0457 09/28/16 0457 Other Results Laboratory Tests Test 09/27/16 09/27/16 09/27/16 09/28/16 09:46 12:09 14:55 04:57 Hepatitis A IgM Antibody NEGATIVE Hepatitis B Surface Antigen NEGATIVE Hepatitis B Core IgM Antibody NEGATIVE Hepatitis C Antibody NEGATIVE Sodium Level 140 MEQ/L 135 MEQ/L Potassium Level 4.2 MEQ/L 4.6 MEQ/L Chloride Level 99 MEQ/L 96 MEQ/L Carbon Dioxide Level 25.8 MEQ/L 24.4 MEQ/L Anion Gap 15 MEQ/L 15 MEQ/L Blood Urea Nitrogen 99 MG/DL 109 MG/DL Creatinine 11.97 MG/DL 13.72 MG/DL Estimat Glomerular Filtration 6 ML/MIN 5 ML/MIN Rate Random Glucose 106 MG/DL 109 MG/DL Calcium Level 6.5 MG/DL 6.3 MG/DL Protein Corrected Calcium 6.5 MG/DL 6.6 MG/DL Total Bilirubin 0.8 MG/DL 0.7 MG/DL Aspartate Amino Transf 114 U/L 96 U/L (AST/SGOT) Alanine Aminotransferase 89 U/L 70 U/L (ALT/SGPT) Alkaline Phosphatase 120 U/L 112 U/L Total Protein 7.1 GM/DL 6.5 GM/DL Albumin 3.2 GM/DL 2.8 GM/DL Blood Gas Puncture Site RT RADIAL Blood Gas Patient Temperature 98.6 Blood Gas HCO3 23 mmol/L Blood Gas Base Excess -0.6 mmol/L Blood Gas Oxygen Saturation 94 % Arterial Blood pH 7.42 Arterial Blood Partial 37 mmHg Pressure CO2 Arterial Blood Partial 99 mmHg Pressure O2 Arterial Blood Oxygen Content 11.2 Vol % Arterial Blood 2.3 % Carboxyhemoglobin Arterial Blood Methemoglobin 1.3 % Blood Gas Hemoglobin 8.4 G/DL Oxygen Delivery Device VENTILATOR Blood Gas Ventilator Setting CPAP 5/10PS Blood Gas Inspired Oxygen 40 % White Blood Count 7.1 TH/MM3 Red Blood Count 2.49 MIL/MM3 Hemoglobin 8.0 GM/DL Hematocrit 23.4 % Mean Corpuscular Volume 94.2 FL Mean Corpuscular Hemoglobin 32.0 PG Mean Corpuscular Hemoglobin 34.0 % Concent Red Cell Distribution Width 18.3 % Platelet Count 257 TH/MM3 Mean Platelet Volume 8.7 FL Neutrophils (%) (Auto) 71.6 % Lymphocytes (%) (Auto) 12.2 % Monocytes (%) (Auto) 7.9 % Eosinophils (%) (Auto) 7.0 % Basophils (%) (Auto) 1.3 % Neutrophils # (Auto) 5.1 TH/MM3 Lymphocytes # (Auto) 0.9 TH/MM3 Monocytes # (Auto) 0.6 TH/MM3 Eosinophils # (Auto) 0.5 TH/MM3 Basophils # (Auto) 0.1 TH/MM3 CBC Comment DIFF FINAL Differential Comment Imaging Last Impressions Chest X-Ray 09/27/16 0339 Signed Impressions: Service Date/Time: Tuesday, September 27, 2016 03:51 - CONCLUSION: 1. Satisfactory position of endotracheal tube as above. 2. Cardiomegaly and findings of congestive heart failure. The findings have worsened when compared with the prior examination. Antony Colvin MD Liver Ultrasound 09/27/16 0000 Signed Impressions: Service Date/Time: Tuesday, September 27, 2016 11:10 - CONCLUSION: 1. Cholelithiasis with multiple small gallstones with no definite gallbladder wall thickening or pericholecystic fluid. 2. The pancreatic duct appears mildly prominent measuring 3-4 mm with no definite pancreatic mass seen in the visualized portion. 3. The right kidney is small and atrophic in appearance small cystic structures an apparent small calculus. 4. Liver is prominent measuring up to 19 cm with no focal lesion. Reed Garcia MD Objective Remarks GENERAL: Patient is 41 yo lying in bed in NAD SKIN: Warm and dry. HEAD: Normocephalic. EYES: No scleral icterus. No injection or drainage. NECK: Supple, trachea midline. No JVD or lymphadenopathy. CARDIOVASCULAR: Regular rate and rhythm without murmurs, gallops, or rubs. RESPIRATORY: Breath sounds equal bilaterally. No accessory muscle use. GASTROINTESTINAL: Abdomen soft, non-tender, nondistended. MUSCULOSKELETAL: No cyanosis, or edema. Neuro: Awake and alert A/P Assessment and Plan 1)Resp Insuff s/p extubation- 09/27 2)Acute intravascular volume overload 3)Pulmonary edema 4)Hypertension 5)Elevated LFT's...trending down 6)Anemia 7)Hx Non-compliance Plan Neuro: Awake and alert Pulm: Continue with oxygen keep sat >92% Bronchodilators, check CXR CV: Monitor HR and BP keep MAP>65mmHg Continue Hydralazine 50mg Q8, Clonidine 0.3mg Q8, Labetolol 400mg Q8, Norvasc 10mg daily : Monitor renal function, I/O's, avoid nephrotoxins s/p HD 09/27 with removal 6 L. HD per renal. Dr. Manjarrez On D10@30ml/hr for hypoglycemic episodes yesterday GI: On PO diet, monitor LFT's ( trending down). Hepatitis profile negative US liver: Cholelithiasis with multiple small gallstones with no definite gallbladder wall thickening or pericholecystic flui ID: Monitor for signs of infections ( Fever, WBC) Heme: Monitor CBC, on Epogen with HD Endo: SSI with accuchecks GI prophylaxis- On Protonix 40mg daily DVT prophylaxis- SCD's, Heparin SQ Level 3 Sharan Friedman MD Sep 28, 2016 08:42
[2016-09-28] MEDS ORDERED: CALCIUM GLUCONATE INJ 1 GM in SODIUM CHLORIDE 0.9% INJ 100 ML IV ONE (09:00)
--- NOTE | 2016-09-28 09:28 | RADRPT ---
EXAM DATE/TIME: 09/28/2016 08:56 [facility] COMPARISON: CHEST SINGLE AP, September 27, 2016, 3:51. INDICATIONS : Short of breath. Followup pulmonary edema. Extubation MEDICAL HISTORY : Congestive heart failure. SURGICAL HISTORY : None. ENCOUNTER: Subsequent ACUITY: 3 days PAIN SCORE: 0/10 LOCATION: Bilateral chest FINDINGS: A single AP erect portable view of the chest was obtained and demonstrates interval extubation and re moval of nasogastric tube. This may significant improvement in the bilateral alveolar opacities with moderate residual remaining in the right infrahilar region and mild residual in the left perihilar re gion and left lung base. The heart size remains moderately enlarged with a globular configuration. Th ere is no effusion. The bony thorax remains intact with multiple overlying electrocardiogram leads. CONCLUSION: 1. Extubation and removal of nasogastric tube. 2. Significant improvement in pulmonary edema with mild to moderate residual. Reed Garcia MD on September 28, 2016 at 9:25 Board Certified Radiologist. This report was verified electronically.
--- NOTE | 2016-09-28 10:00 | HHI.NPPN ---
Subjective History of Present Illness 41-year-old with ESRD and noncompliance with hemodialysis Additional Remarks Extubated Review of Systems General Constitutional: Fatigue Objective Data Data 09/27/16 09/28/16 19:00 07:00 Intake Total 574 ml 1617 ml Output Total 6000 ml Balance -5426 ml 1617 ml Intake Oral 960 ml IV Total 524 ml 657 ml Tube Irrigant 50 ml Output Urine Total 0 ml Hemodialysis 6000 ml Vital Signs Date Time Temp Pulse Resp B/P Pulse Ox O2 Delivery O2 Flow Rate FiO2 09/28/16 08:50 100 Nasal Cannula 4.00 09/28/16 06:00 63 09/28/16 04:00 98.3 69 28 135/91 100 09/28/16 04:00 62 09/28/16 02:00 73 09/28/16 00:00 98.5 69 19 172/103 98 09/28/16 00:00 69 09/27/16 22:00 68 09/27/16 20:44 96 Nasal Cannula 4.00 09/27/16 20:00 98.5 73 22 176/111 98 09/27/16 20:00 78 09/27/16 18:00 76 09/27/16 16:15 98 Nasal Cannula 3 09/27/16 16:15 98 Nasal Cannula 3.00 09/27/16 16:10 71 09/27/16 16:00 98.4 71 16 185/114 100 09/27/16 14:00 68 09/27/16 12:00 72 09/27/16 12:00 97.5 72 16 159/103 100 09/27/16 11:45 99 45 09/27/16 10:00 70 -: 09/28/16 0457 09/28/16 0457 Physical Exam General Appearance: Well Developed, Well Nourished Neck Neck Exam: Neck Supple Pulmonary Resp Exam: Decreased Bases Cardiology CV Exam: Regular, Normal Sinus Rhythm Gastrointestinal/Abdomen GI Exam: Soft, Non-Tender Extremeties Extremities Exam: Trace Edema Assessment/Plan Problem List: (1) ESRD (end stage renal disease) on dialysis Plan: Patient has multiple visit to this hospital due to noncompliance He is extubated and asking for food the his hemodialysis days are Monday, Monday and Monday we'll keep him on the schedule, check phosphorus Start him on PhosLo Continue to educate him and I again emphasized keeping his appointment for outpatient dialysis, I made him aware that the baby will be more openings in October as People tend to move back up state. case management social worker to help him (2) Pulmonary edema Plan: Resolved with hemodialysis (3) Hypertensive emergency Plan: Blood pressure improved (4) Acute respiratory failure with hypoxia Plan: Extubated (5) Hyperkalemia Plan: Treated with hemodialysis Problem Qualifiers (1) Pulmonary edema: Qualified Code: J81.0 - Acute pulmonary edema Cole Manjarrez MD Sep 28, 2016 10:00
[2016-09-28] MEDS: EPOETIN ALFA 10,000 UNITS/ML VIAL IV PRN (12:45)
[2016-09-28] MEDS: GELATIN 12 MM/7 MM FOAM TOP PRN (12:46)
[2016-09-28] MEDS: SODIUM CHLOR 0.9% 1000 ML INJ 1,000 ML IV PRN (12:47)
[2016-09-28] MEDS: PANTOPRAZOLE SOD 40 MG DELAYED RELEASE TAB PO SCH (14:31)
[2016-09-28] MEDS: CALCIUM ACETATE 667 MG CAP PO SCH ×2 (14:31→18:28)
[2016-09-29] VITALS (11 sets, daily range): BP systolic 138–182; BP diastolic 91–103; PULSE 67–80; RESP 18–30; TEMP 97.6–98.3; O2SAT 95–100
[2016-09-29] MEDS: INSULIN NovoLIN REGULAR SUPPLEMENTAL SCALE SQ SCH ×8 (00:45→18:29)
[2016-09-29] MEDS: LABETALOL HCL 200 MG TAB PO SCH ×3 (01:21→20:07)
[2016-09-29] MEDS: RESP: ALBUTEROL 2.5 MG/IPRATROPIUM 0.5 MG NEB (SCH) INH ×3 (03:36→16:38)
[2016-09-29] MEDS: CHLORHEXIDINE GLUCONATE 2 % 1 PACK (2 CLOTHS) TOP SCH (04:00)
[2016-09-29] MEDS: LABETALOL HCL 100 MG/20 ML VIAL IV PRN (06:33)
[2016-09-29] MEDS: hydrALAZINE HCL 50 MG TAB PO SCH ×2 (06:33→12:43)
[2016-09-29] MEDS: HEPARIN SODIUM - SQ 10,000 UNITS/ML VIAL SQ SCH ×2 (06:34→12:43)
[2016-09-29] MEDS: CHLORHEXIDINE 0.12% (ORAL KIT) 15 ML CUP MT SCH (08:00)
[2016-09-29] MEDS: SODIUM CHLORIDE 0.9% FLUSH 5 ML FLUSH IV FLUSH SCH (08:23)
[2016-09-29] MEDS: DOCUSATE SODIUM 50 MG/SENNA 8.6 MG TAB PO SCH (08:24)
[2016-09-29] MEDS: cloNIDine HCL 0.3 MG TAB PO SCH ×3 (08:24→17:56)
[2016-09-29] MEDS: CALCIUM ACETATE 667 MG CAP PO SCH ×3 (08:25→17:57)
[2016-09-29] MEDS: PANTOPRAZOLE SOD 40 MG DELAYED RELEASE TAB PO SCH (08:25)
--- NOTE | 2016-09-29 09:20 | HHI.NPPN ---
Subjective History of Present Illness 41-year-old with ESRD and noncompliance with hemodialysis Additional Remarks asking for more food.:" I will sign off AMA" Review of Systems General Constitutional: Fatigue Objective Data Data 09/28/16 09/29/16 19:00 07:00 Intake Total 1140 ml 1200 ml Output Total 5000 ml Balance -3860 ml 1200 ml Intake Oral 960 ml 960 ml IV Total 180 ml 240 ml Hemodialysis 5000 ml Vital Signs Date Time Temp Pulse Resp B/P Pulse Ox O2 Delivery O2 Flow Rate FiO2 09/29/16 06:00 71 09/29/16 04:00 98.3 69 18 155/93 96 09/29/16 04:00 69 09/29/16 02:00 75 09/29/16 00:00 98.3 79 22 156/91 96 09/29/16 00:00 79 09/28/16 22:00 77 09/28/16 21:13 98 21 09/28/16 20:00 76 09/28/16 20:00 98.5 76 22 161/93 100 09/28/16 18:00 78 09/28/16 16:00 98.2 86 21 175/113 100 09/28/16 16:00 74 09/28/16 14:00 70 09/28/16 12:00 98.5 65 18 146/93 09/28/16 12:00 76 09/28/16 10:00 70 -: 09/28/16 0457 09/28/16 0457 Physical Exam General Appearance: Well Developed, Well Nourished Neck Neck Exam: Neck Supple Pulmonary Resp Exam: Decreased Bases Cardiology CV Exam: Regular, Normal Sinus Rhythm Gastrointestinal/Abdomen GI Exam: Soft, Non-Tender Extremeties Extremities Exam: Trace Edema Assessment/Plan Problem List: (1) ESRD (end stage renal disease) on dialysis Plan: Patient has multiple visit to this hospital due to noncompliance Monday, Monday and Monday on PhosLo he is doing better and has to be compliant with food and diet he is educated again (2) Pulmonary edema Plan: Resolved with hemodialysis (3) Hypertensive emergency Plan: Blood pressure Labile as refuses medications and Blood draw (4) Hyperkalemia Plan: Treated with hemodialysis Problem Qualifiers (1) Pulmonary edema: Qualified Code: J81.0 - Acute pulmonary edema Cole Manjarrez MD Sep 29, 2016 09:19
[2016-09-29] MEDS: hydrALAZINE HCL 20 MG/ML VIAL IV PRN (09:50)
--- NOTE | 2016-09-29 11:34 | PD.TRANSFR ---
Transfer Summary Admission Date Sep 27, 2016 at 04:15 Transfer Date: Sep 29, 2016 Admitting Diagnosis Acute hypoxemic respiratory failure, pulmonary edema, hyperkalemia Diagnoses: (1) Acute respiratory failure with hypoxia Diagnosis: Principal (2) Hypertensive emergency Diagnosis: Principal (3) Hyperkalemia Diagnosis: Principal (4) Pulmonary edema Diagnosis: Principal (5) Volume overload Diagnosis: Principal (6) Medical non-compliance Diagnosis: Secondary (7) End stage renal disease Diagnosis: Secondary Transfer Summary/Subjective This is a 41-year-old male who arrived by EMS to shortness of breath. He is apparently an end-stage renal disease patient who is followed by Dr. Manjarrez and is usually on Monday dialysis. However, he missed his dialysis appointment He was initially given Solu-Medrol and albuterol without benefit. The patient refused CPAP in the emergency department. His laboratory data is remarkable for a white count of 9000, creatinine of 14, and potassium of 6.4. His chest x-ray is notable for bilateral congestion suggestive of pulmonary edema. Due to the fact the patient refused BiPAP, he continued to worsen from a hypoxia standpoint. He was intubated for hypoxic respiratory failure. Critical-care medicine is consulted to evaluate and manage his life- threatening hyperkalemia and his acute intravascular volume overload with acute hypoxic respiratory failure. 09/28 Patient s/p extubation yesterday on 4L oxygen with good sats. s/p HD yesterday with removal 6L. Hypertensive. Afebrile. 09/29: Refused lab work today, hemodialysis is pending at this time. Chest x- ray ordered for a.m. patient is upset that he is not getting enough food Objective Vital Signs Date Time Temp Pulse Resp B/P Pulse Ox O2 Delivery O2 Flow Rate FiO2 09/29/16 11:02 100 21 09/29/16 10:00 74 09/29/16 08:00 97.6 18 168/103 09/28/16 08:50 Nasal Cannula 4.00 Intake and Output 09/28/16 09/28/16 09/29/16 08:00 16:00 00:00 Intake Total 596 ml 1140 ml 720 ml Output Total 5000 ml Balance 596 ml -3860 ml 720 ml Result Diagram: 09/28/16 0457 09/28/16 0457 Imaging Last Impressions Chest X-Ray 09/27/16 0339 Signed Impressions: Service Date/Time: Tuesday, September 27, 2016 03:51 - CONCLUSION: 1. Satisfactory position of endotracheal tube as above. 2. Cardiomegaly and findings of congestive heart failure. The findings have worsened when compared with the prior examination. Antony Colvin MD Liver Ultrasound 09/27/16 0000 Signed Impressions: Service Date/Time: Tuesday, September 27, 2016 11:10 - CONCLUSION: 1. Cholelithiasis with multiple small gallstones with no definite gallbladder wall thickening or pericholecystic fluid. 2. The pancreatic duct appears mildly prominent measuring 3-4 mm with no definite pancreatic mass seen in the visualized portion. 3. The right kidney is small and atrophic in appearance small cystic structures an apparent small calculus. 4. Liver is prominent measuring up to 19 cm with no focal lesion. Reed Garcia MD Objective Remarks GENERAL: Patient is 41 yo lying in bed in NAD SKIN: Warm and dry. HEAD: Normocephalic. EYES: No scleral icterus. No injection or drainage. NECK: Supple, trachea midline. No JVD or lymphadenopathy. CARDIOVASCULAR: Regular rate and rhythm without murmurs, gallops, or rubs. RESPIRATORY: Breath sounds equal bilaterally. No accessory muscle use. GASTROINTESTINAL: Abdomen soft, non-tender, nondistended. MUSCULOSKELETAL: No cyanosis, or edema. Neuro: Awake and alert A/P Assessment and Plan Acute hypoxemic respiratory failure s/p extubation- 09/27 Acute intravascular volume overload Pulmonary edema Hyperkalemia-resolved End-stage renal disease Hypertension Elevated LFT's...trending down Anemia Hx Non-compliance Plan Neuro: Awake and alert Pulm: Continue with oxygen keep sat >90% Bronchodilators, check CXR in am. Extubated 09/27 CV: Monitor HR and BP keep MAP>65mmHg Continue Hydralazine 50mg Q8, Clonidine 0.3mg Q8, Labetolol 400mg Q8, Norvasc 10mg daily : Monitor renal function, I/O's, avoid nephrotoxins HD planned again today. Dr. Manjarrez Off D10@30ml/hr for hypoglycemic episodes Off for 24 hours GI: On PO diet, monitor LFT's ( trending down). Hepatitis profile negative US liver: Cholelithiasis with multiple small gallstones with no definite gallbladder wall thickening or pericholecystic fluid ID: Monitor for signs of infections ( Fever, WBC) Heme: Monitor CBC, on Epogen with HD Endo: SSI with accuchecks GI prophylaxis- On Protonix 40mg daily DVT prophylaxis- SCD's, Heparin SQ Level 3 [facility] consulted to assume care AM 09/30/16 Sharmila Chacon MD Sep 29, 2016 11:34
[2016-09-29 16:46] LABS: BASOPHIL # 0.1 TH/MM3 (0-0.2); BASOPHIL % 1.1 % (0.0-2.0); EOSINOPHIL # 0.5 TH/MM3 (0-0.4); EOSINOPHIL % 7.3 % (0.0-4.0); HEMATOCRIT 25.1 % (39.0-51.0); HEMO FLAGS DIFF FINAL; LYMPH % 13.5 % (9.0-44.0); MEAN CELL VOLUME 95.3 FL (80.0-100.0); MEAN CORPUSCULAR HEMOGLOBIN 31.6 PG (27.0-34.0); MEAN CORPUSCULAR HGB CONC 33.1 % (32.0-36.0); MONO % 8.6 % (0.0-8.0); NEUT % 69.5 % (16.0-70.0); PLATELET COUNT 259 TH/MM3 (150-450); RED BLOOD COUNT 2.64 MIL/MM3 (4.50-5.90); RED CELL DISTRIBUTION WIDTH 18.5 % (11.6-17.2); WHITE BLOOD COUNT 7.1 TH/MM3 (4.0-11.0)
[2016-09-29 17:05] LABS: BICARBONATE 24.8 MEQ/L (21.0-32.0); POTASSIUM 4.6 MEQ/L (3.5-5.1); TOTAL BILIRUBIN ADULT 0.7 MG/DL (0.2-1.0)
[2016-09-29 17:08] LABS: CALCIUM-PROTEIN CORRECTED 7.4 MG/DL (8.5-10.1)
== END 2016-09-29 20:45 | disposition left against medical advice (07) | DRG 189 ==
LOC: NEPE 02:03 → NEDA 04:15 → HIMW 06:10
PROVIDERS: ADMIT Internal Medicine Critical Care Medicine; ATTEND Internal Medicine Critical Care Medicine
DX: J96.01 Acute respiratory failure with hypoxia (principal); N18.6 End stage renal disease; I12.0 Hypertensive chronic kidney disease with stage 5 chronic kidney disease or end stage renal disease; I16.1 Hypertensive emergency; E87.5 Hyperkalemia; D64.9 Anemia, unspecified; E16.2 Hypoglycemia, unspecified; E83.51 Hypocalcemia; K80.20 Calculus of gallbladder without cholecystitis without obstruction; F12.90 Cannabis use, unspecified, uncomplicated; Z72.0 Tobacco use; Z79.899 Other long term (current) drug therapy; Z91.19 Patient's noncompliance with other medical treatment and regimen; Z99.2 Dependence on renal dialysis
CPT/HCPCS: 36600; 71010; 76705; 80053; 80074; 82805; 82948; 83735; 84100; 84132; 85025; 87641; 90935; 93005; 94002; 94640; 94664; 96365; 96366; 96374; 96375; J0360; J0610; J1644; J1815; J2060; J3010; J7030; J7042; J7613; Q4081

== ENCOUNTER 2016-10-01 01:07 | Inpatient (IN) | payer SELFPAY ==
[~2016-10-01] VITALS: Ht 175.3 cm; Wt 76.8 kg
[2016-10-01] VITALS (24 sets, daily range): BP systolic 159–222; BP diastolic 103–128; PULSE 74–86; RESP 16–25; TEMP 97.7–98.7; O2SAT 95–99
[2016-10-01] MEDS ORDERED: cloNIDine HCL 0.1 MG TAB PO ONE (01:45)
[2016-10-01] MEDS ORDERED: SODIUM CHLORIDE 0.9% FLUSH 5 ML FLUSH IVF PRN ×2 (01:45→08:15)
[2016-10-01 02:09] LABS: AUTOMATED NEUTROPHIL # 6.8 TH/MM3 (1.8-7.7); BASOPHIL # 0.1 TH/MM3 (0-0.2); BASOPHIL % 1.2 % (0.0-2.0); EOSINOPHIL # 0.6 TH/MM3 (0-0.4); EOSINOPHIL % 6.8 % (0.0-4.0); HEMATOCRIT 22.6 % (39.0-51.0); HEMO FLAGS DIFF FINAL; LYMPH % 12.1 % (9.0-44.0); LYMPHOCYTE # 1.1 TH/MM3 (1.0-4.8); MEAN CELL VOLUME 95.6 FL (80.0-100.0); MEAN CORPUSCULAR HEMOGLOBIN 32.4 PG (27.0-34.0); MEAN CORPUSCULAR HGB CONC 33.9 % (32.0-36.0); MONO % 6.3 % (0.0-8.0); NEUT % 73.6 % (16.0-70.0); PLATELET COUNT 257 TH/MM3 (150-450); RED BLOOD COUNT 2.36 MIL/MM3 (4.50-5.90); RED CELL DISTRIBUTION WIDTH 18.7 % (11.6-17.2); WHITE BLOOD COUNT 9.2 TH/MM3 (4.0-11.0)
--- NOTE | 2016-10-01 02:19 | RADRPT ---
EXAM DATE/TIME: 10/01/2016 01:56 [facility] COMPARISON: CHEST SINGLE AP, September 28, 2016, 8:56. INDICATIONS : Chest pain. MEDICAL HISTORY : Congestive heart failure. SURGICAL HISTORY : Thoracentesis ENCOUNTER: Initial ACUITY: 1 day PAIN SCORE: 6/10 LOCATION: Bilateral chest FINDINGS: The cardiac silhouette is enlarged in transverse diameter. There are findings of congestive heart edgar lure with interstitial and alveolar opacity bilaterally. The findings are similar to the prior exam. No pleural effusions are identified. CONCLUSION: 1. Cardiomegaly and findings of congestive heart failure. There has been no significant change when c ompared to the prior exam. Antony Colvin MD on October 01, 2016 at 2:17 Board Certified Radiologist. This report was verified electronically.
[2016-10-01 02:50] LABS: BICARBONATE 22.8 MEQ/L (21.0-32.0); MAGNESIUM 1.9 MG/DL (1.5-2.5)
[2016-10-01 03:41] LABS: CALCIUM-PROTEIN CORRECTED 7.4 MG/DL (8.5-10.1)
[2016-10-01] MEDS ORDERED: INSULIN HUMAN REGULAR 1,000 UNITS/10 ML VIAL IV PUSH ONE (03:45)
[2016-10-01] MEDS ORDERED: SODIUM BICARBONATE 8.4% SOLN 50 MEQ/50 ML VIAL SLOW IVP ONE (03:45)
[2016-10-01] MEDS ORDERED: SODIUM POLYSTYRENE SULFONATE SUSP 15 GM/60 ML CUP PO ONE ×2 (03:45→04:00)
[2016-10-01] MEDS ORDERED: CALCIUM GLUCONATE 10% 1 GM/10 ML VIAL SLOW IVP ONE (03:45)
[2016-10-01] MEDS ORDERED: DEXTROSE 50% IN WATER 50 ML VIAL(D50) IV PUSH ONE (03:45)
--- NOTE | 2016-10-01 03:54 | PD ---
HPI Chief Complaint: Chest Pain Time Seen by Provider: 01:27 Travel History International Travel<30 days: No Contact w/Intl Traveler<30days: No Traveled to known affect area: No History of Present Illness HPI 53-year-old male well known to our ER who suffers with end-stage renal disease arrives with shortness of breath and chest pain. It started about 2-1/2-3 hours prior to ER arrival. The patient follows with Dr. Manjarrez of nephrology. The pt was admitted here and intubated due to severe respiratory distress after he refused BiPAP. He was then dialyzed stat. He then signed out AGAINST MEDICAL ADVICE a day and a half ago. The patient has missed every dialysis session scheduled for him in [facility]. Evidently he has to take the public bus there and back from [facility]. He denies fever. He has had a cough chronic in nature for months. He smokes 3-4 cigarettes per day. His dialysis prior to last admission was scheduled for Monday however it was changed to Monday. He missed dialysis as scheduled on the day arrival to the ER. A previously he lived in [place] and underwent dialysis there. He states he intends to return back there. Right now he is visiting his mother and is also living with her. Associated complaints: he has repeatedly stated he is quite hungry. PFSH Past Medical History Hx Anticoagulant Therapy: No Autoimmune Disease: No Blood Disorders: No Cancer: No Cardiovascular Problems: Yes (HTN ) Chest Pain: Yes Congestive Heart Failure: Yes Diabetes: No Dialysis: Yes (SHUNT IN LEFT ARM) Diminished Hearing: No Endocrine: No Genitourinary: Yes (ESRD) Hypertension: Yes Immune Disorder: No Implanted Vascular Access Dvce: Yes (FISTULA LUE) Musculoskeletal: No Neurologic: No Psychiatric: No Reproductive: No Respiratory: No Renal Failure: Yes Seizures: Yes Influenza Vaccination: Yes Past Surgical History Cardiac Surgery: Yes ("TOOK FLUID IN HIS HEART"(PERICARDIOCENTHESIS??)) Thoracic Surgery: Yes Other Surgery: Yes (SHUNT TO L ARM ) Social History Alcohol Use: No Tobacco Use: Yes Substance Use: Yes (uses marijuana) Allergies-Medications (Allergen,Severity, Reaction): Coded Allergies: *MDRO Multi-Drug Resistant Organism (Verified Adverse Reaction, Unknown, MRSA, 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 HEAD: Atraumatic. Normocephalic. EYES: Pupils equal and round. No scleral icterus. No injection or drainage. ENT: No nasal bleeding or discharge. Mucous membranes pink and moist. NECK: Trachea midline. No JVD. CARDIOVASCULAR: Regular rate and rhythm. No murmur appreciated. RESPIRATORY: Minimal wheezing present bilaterally. Rales are also present. Patient speaking in full sentences GASTROINTESTINAL: Abdomen soft, non-tender, nondistended. Hepatic and splenic margins not palpable. MUSCULOSKELETAL: No obvious deformities. No clubbing. No cyanosis. No edema. NEUROLOGICAL: Awake and alert. No obvious cranial nerve deficits. Motor grossly within normal limits. Normal speech. PSYCHIATRIC: Appropriate mood and affect; insight and judgment normal. Data Data Last Documented VS Vital Signs Date Time Temp Pulse Resp B/P Pulse Ox O2 Delivery O2 Flow Rate FiO2 10/01/16 01:43 24 96 Nasal Cannula 2 10/01/16 01:21 97.7 82 222/128 Orders Complete Blood Count With Diff (10/01/16 01:39) Basic Metabolic Panel (Bmp) (10/01/16 01:39) Magnesium (Mg) (10/01/16 01:39) Iv Access Insert/Monitor (10/01/16 01:39) Electrocardiogram (10/01/16 01:39) Ecg Monitoring (10/01/16 01:39) Oximetry (10/01/16 01:39) Oxygen Administration (10/01/16 01:39) Chest, Single Ap (10/01/16 01:39) Sodium Chloride 0.9% Flush (Ns Flush) (10/01/16 01:45) Clonidine (Catapres) (10/01/16 01:45) Protein Corrected Calcium(Pcc) (10/01/16 01:40) Calcium Gluconate Inj (Calcium Gluconate (10/01/16 03:45) Insulin Human Regular Inj (Novolin R Inj (10/01/16 03:45) Dextrose 50% In Lia (Vial) Inj (D50w (Vi (10/01/16 03:45) Sodium Bicarbonate 8.4% Inj (Sodium Bica (10/01/16 03:45) Sodium Polysty Sulfate Liq (Kayexalate L (10/01/16 03:45) Admit Order (Ed Use Only) (10/01/16 03:49) Consult Nephrology (10/01/16 ) Labs Laboratory Tests Test 10/01/16 01:40 White Blood Count 9.2 TH/MM3 Red Blood Count 2.36 MIL/MM3 Hemoglobin 7.7 GM/DL Hematocrit 22.6 % Mean Corpuscular Volume 95.6 FL Mean Corpuscular Hemoglobin 32.4 PG Mean Corpuscular Hemoglobin 33.9 % Concent Red Cell Distribution Width 18.7 % Platelet Count 257 TH/MM3 Mean Platelet Volume 8.3 FL Neutrophils (%) (Auto) 73.6 % Lymphocytes (%) (Auto) 12.1 % Monocytes (%) (Auto) 6.3 % Eosinophils (%) (Auto) 6.8 % Basophils (%) (Auto) 1.2 % Neutrophils # (Auto) 6.8 TH/MM3 Lymphocytes # (Auto) 1.1 TH/MM3 Monocytes # (Auto) 0.6 TH/MM3 Eosinophils # (Auto) 0.6 TH/MM3 Basophils # (Auto) 0.1 TH/MM3 CBC Comment DIFF FINAL Differential Comment Sodium Level 136 MEQ/L Potassium Level 6.0 MEQ/L Chloride Level 98 MEQ/L Carbon Dioxide Level 22.8 MEQ/L Anion Gap 15 MEQ/L Blood Urea Nitrogen 125 MG/DL Creatinine 14.75 MG/DL Estimat Glomerular Filtration 4 ML/MIN Rate Random Glucose 69 MG/DL Calcium Level 7.4 MG/DL Protein Corrected Calcium 7.4 MG/DL Magnesium Level 1.9 MG/DL Total Protein 7.2 GM/DL [facility] Medical Decision Making Medical Screen Exam Complete: Yes Emergency Medical Condition: Yes Medical Record Reviewed: Yes Differential Diagnosis Volume overload, electrolyte imbalance, hyperkalemia Narrative Course Noncompliant with outpatient dialysis. His arrival tonight fortunately is not a true emergency and does not require intubation or noninvasive ventilatory support. Nonetheless his potassium is 6 and his BUN/creatinine is 125/14. CBC & BMP Diagram 10/01/16 01:40 The patient will again be admitted for emergent dialysis in the morning. Involvement with case management may be advisable to help the patient attended a dialysis center closer to home. Case discussed with Dr. Manjarrez of nephrology. Case discussed with Dr. Hutchinson for hospitalist service. Of note the patient's prevailing complaint throughout his ER stay has been hunger. Having managed him multiple times in the ER he does appear much more stable than on previous visits. He has been walking to his doorway and shouting at the nurse for food. In this scenario, emergent HD in the trucker is considered reasonable. Critical Care Narrative Aggregate critical care time was 35 minutes. Time to perform other separately billable procedures was not included in the critical care time. My time did not include minutes spent treating any other patients simultaneously or on activities that did not directly contribute to the patient's treatment. The services I provided to this patient were to treat and/or prevent clinically significant deterioration that could result in: hypoxic respiratory failure, fatal arrhythmia I provided critical care services requiring my management, as noted below: Chart data review, documentation time, medication orders and management, vital sign assessments/reviewing monitor data, ordering and reviewing lab tests, ordering and interpreting/reviewing x-rays and diagnostic studies, care of the patient and discussion of the patient with the admitting physicians. Diagnosis Primary Impression: ESRD (end stage renal disease) on dialysis Additional Impressions: Pulmonary edema Qualified Code: J81.1 - Chronic pulmonary edema Volume overload Qualified Code: E87.79 - Other hypervolemia Acute respiratory failure with hypoxia Hypertensive emergency Hyperkalemia [place] Medical non-compliance Atypical chest pain Nutrition, metabolism, and development symptoms Admitting Information Admitting Physician Requests: Admit Nba Guerra MD Oct 01, 2016 03:54
[2016-10-01] MEDS ORDERED: SODIUM CHLORIDE 0.9% FLUSH 5 ML FLUSH FLUSH PRN (04:00)
[2016-10-01] MEDS ORDERED: NALOXONE HCL 0.4 MG/ML AMP IV PRN (04:00)
[2016-10-01 06:22] LABS: BICARBONATE 24.7 MEQ/L (21.0-32.0); POTASSIUM 5.1 MEQ/L (3.5-5.1)
[2016-10-01 06:38] LABS: CALCIUM-PROTEIN CORRECTED 7.5 MG/DL (8.5-10.1)
[2016-10-01] MEDS: hydrALAZINE HCL 20 MG/ML VIAL IV PUSH PRN ×3 (07:02→22:59)
--- NOTE | 2016-10-01 07:49 | HHI.HP ---
[facility] Service [facility] Primary Care Physician Unknown Admission Diagnosis ESRD, Dyspnea, HyperK Diagnoses: (1) Hyperkalemia Diagnosis: Principal (2) ESRD (end stage renal disease) on dialysis Diagnosis: Principal (3) Volume overload Diagnosis: Principal Chief Complaint: shortness of breath Travel History International Travel<30 Days: No Contact w/Intl Traveler <30 Da: No Traveled to Known Affected Are: No History of Present Illness patient is a 41 y/o male with history of ESRD- on HD, who was just recently admitted to this hospital with respiratory failure- s/p intubation presented to ER again with sob he decided to sign out against medical advice last time. he says that he didn't have any more dialysis since last admission. he started to have some sob and then he decided to come back to the hospital. he says that now his sob has improved. he denies any other complaints. Review of Systems Constitutional: DENIES: Fever, Weight loss, Chills, Night Sweats Eyes: DENIES: Blurred vision, Diplopia, Vision loss, Double Vision Ears, nose, mouth, throat: DENIES: Tinnitus, Vertigo, Throat pain, Epistaxis Respiratory: COMPLAINS OF: Shortness of breath, DENIES: Apneas, Cough, Snoring , Wheezing, Hemoptysis, Sputum production Cardiovascular: DENIES: Chest pain, Palpitations, Syncope, Dyspnea on Exertion , PND, Lower Extremity Edema, Orthopnea, Claudication Gastrointestinal: DENIES: Abdominal pain, Black stools, Bloody stools, Constipation, Diarrhea, Nausea, Vomiting, Difficulty Swallowing, Anorexia Genitourinary: DENIES: Urinary frequency, Urgency, Hematuria, Dysuria Musculoskeletal: DENIES: Joint pain, Muscle aches, Stiffness, Joint Swelling Integumentary: DENIES: Rash Neurologic: DENIES: Abnormal gait, Headache, Localized weakness, Paresthesias, Seizures, Speech Problems, Tremor, Poor Balance Psychiatric: DENIES: Anxiety, Confusion, Mood changes, Depression, Hallucinations, Agitation, Suicidal Ideation, Homicidal Ideation, Delusions Past Family Social History Past Medical History ESRD hypertension Past Surgical History pericardiocentesis. Reported Medications clonidine hydralazine labetalol Allergies: Coded Allergies: *MDRO Multi-Drug Resistant Organism (Verified Adverse Reaction, Unknown, MRSA, 10/01/16) MRSA PCR screen POSITIVE - 09/27/16 Active Ordered Medications Current Medications IV Flush (NS Flush) 2 ml UNSCH PRN IVF FLUSH AFTER USING IV ACCESS; Start 10/01 at 01:45; Stop 10/01/16 at 03:55; Status DC Clonidine (Catapres) 0.1 mg ONCE ONCE PO Last administered on 10/01/16 02:08 ; Start 10/01/16 at 01:45; Stop 10/01/16 at 01:46; Status DC Calcium Gluconate (Calcium Gluconate Inj) 1 gm ONCE ONCE SLOW IVP Last administered on 10/01/16 04:21; Start 10/01/16 at 03:45; Stop 10/01/16 at 03:46 ; Status DC Insulin Human Regular (NovoLIN R INJ) 10 units ONCE ONCE IV PUSH Last administered on 10/01/16 04:22; Start 10/01/16 at 03:45; Stop 10/01/16 at 03:46 ; Status DC Dextrose (D50w (Vial) Inj) 50 ml ONCE ONCE IV PUSH Last administered on 04:22; Start 10/01/16 at 03:45; Stop 10/01/16 at 03:46; Status DC Sodium Bicarbonate (Sodium Bicarbonate 8.4% Inj) 50 meq ONCE ONCE SLOW IVP Last administered on 10/01/16 04:21; Start 10/01/16 at 03:45; Stop 10/01/16 at 03:46; Status DC Sodium Polystyrene Sulfonate (Kayexalate Liq) 15 gm ONCE ONCE PO Last administered on 10/01/16 04:22; Start 10/01/16 at 03:45; Stop 10/01/16 at 03:46 ; Status DC IV Flush (NS Flush) 2 ml UNSCH PRN FLUSH FLUSH AFTER USING IV ACCESS; Start at 04:00 IV Flush (NS Flush) 2 ml BID FLUSH ; Start 10/01/16 at 09:00 Naloxone HCl (Narcan Inj) 0.4 mg UNSCH PRN IV SEE LABEL COMMENTS; Start 2/18/ 17 at 04:00 Sodium Polystyrene Sulfonate (Kayexalate Liq) 15 gm ONCE ONCE PO Last administered on 10/01/16 04:23; Start 10/01/16 at 04:00; Stop 10/01/16 at 04:01 ; Status DC Hydralazine HCl (Apresoline Inj) 10 mg Q30M PRN IV PUSH bp>160/90 Last administered on 10/01/16 07:02; Start 10/01/16 at 05:00 Family History kidney failure in father. Social History smokes and drinks occasionally.denies illicit drug abuse. Physical Exam Vital Signs Vital Signs Date Time Temp Pulse Resp B/P Pulse Ox O2 Delivery O2 Flow Rate FiO2 10/01/16 07:01 98.4 83 18 191/116 96 Room Air 10/01/16 04:57 80 22 200/121 99 Nasal Cannula 2 10/01/16 01:43 24 96 Nasal Cannula 2 10/01/16 01:43 96 Nasal Cannula 2 10/01/16 01:21 97.7 82 25 222/128 95 Physical Exam GENERAL: This is a well-nourished, well-developed patient, in no apparent distress. SKIN: No rashes, ecchymoses or lesions. Cool and dry. HEAD: Atraumatic. Normocephalic. No temporal or scalp tenderness. EYES: Pupils equal round and reactive. Extraocular motions intact. No scleral icterus. No injection or drainage. ENT: Nose without bleeding, purulent drainage or septal hematoma. Throat without erythema, tonsillar hypertrophy or exudate. Uvula midline. Airway patent. NECK: Trachea midline. No JVD or lymphadenopathy. Supple, nontender, no meningeal signs. CARDIOVASCULAR: Regular rate and rhythm without murmurs, gallops, or rubs. RESPIRATORY: Clear to auscultation. Breath sounds equal bilaterally. No wheezes , rales, or rhonchi. GASTROINTESTINAL: Abdomen soft, non-tender, nondistended. No hepato-splenomegaly , or palpable masses. No guarding. MUSCULOSKELETAL: bilateral pedal edema. NEUROLOGICAL: Awake and alert. Cranial nerves II through XII intact. Motor and sensory grossly within normal limits. Five out of 5 muscle strength in all muscle groups. Normal speech. Laboratory Laboratory Tests Test 10/01/16 10/01/16 01:40 05:04 White Blood Count 9.2 Red Blood Count 2.36 Hemoglobin 7.7 Hematocrit 22.6 Mean Corpuscular Volume 95.6 Mean Corpuscular Hemoglobin 32.4 Mean Corpuscular Hemoglobin 33.9 Concent Red Cell Distribution Width 18.7 Platelet Count 257 Mean Platelet Volume 8.3 Neutrophils (%) (Auto) 73.6 Lymphocytes (%) (Auto) 12.1 Monocytes (%) (Auto) 6.3 Eosinophils (%) (Auto) 6.8 Basophils (%) (Auto) 1.2 Neutrophils # (Auto) 6.8 Lymphocytes # (Auto) 1.1 Monocytes # (Auto) 0.6 Eosinophils # (Auto) 0.6 Basophils # (Auto) 0.1 CBC Comment DIFF FINAL Differential Comment Sodium Level 136 137 Potassium Level 6.0 5.1 Chloride Level 98 97 Carbon Dioxide Level 22.8 24.7 Anion Gap 15 15 Blood Urea Nitrogen 125 124 Creatinine 14.75 15.17 Estimat Glomerular Filtration 4 4 Rate Random Glucose 69 121 Calcium Level 7.4 7.4 Protein Corrected Calcium 7.4 7.5 Magnesium Level 1.9 Total Protein 7.2 6.9 Result Diagram: 10/01/16 0140 10/01/16 0504 Imaging Last Impressions Chest X-Ray 10/01/16 0139 Signed Impressions: Service Date/Time: Saturday, October 01, 2016 01:56 - CONCLUSION: 1. Cardiomegaly and findings of congestive heart failure. There has been no significant change when compared to the prior exam. Antony Colvin MD Assessment and Plan Assessment and Plan A/P - ESRD- on HD ( M/W/F)- non-compliant with hyperkalemia nephrology consulted- HD per nephrology- hyperkalemia has resolved ( he received Kayexalate, insulin, sodium Bicarb and calcium in ER) -hypertensive urgency- will resume his home meds; labetaolol, clonidine and hydralazine- will monitor and adjust the regimen as needed -anemia of chronic disease- will monitor -DVT prophylaxis with subq Heparin Discussed Condition With the patient. Physician Certification 2 Midnight Certification Type: Admission for Inpatient Services Order for Inpatient Services The services are ordered in accordance with Medicare regulations or non- Medicare payer requirements, as applicable. In the case of services not specified as inpatient-only, they are appropriately provided as inpatient services in accordance with the 2-midnight benchmark. Estimated LOS (days): 2 days is the estimated time the patient will need to remain in the hospital, assuming treatment plan goals are met and no additional complications. Post-Hospital Plan: Home Problem Qualifiers (1) Volume overload: Qualified Code: E87.79 - Other hypervolemia Froy Bhat MD Oct 01, 2016 07:49
[2016-10-01] MEDS ORDERED: SODIUM CHLOR 0.9% 1000 ML INJ 1,000 ML IV PRN ×3 (08:02)
[2016-10-01] MEDS ORDERED: HEPARIN SODIUM - IV 10,000 UNITS/10 ML VIAL IVF PRN (08:15)
[2016-10-01] MEDS ORDERED: MANNITOL 12.5 GM/50 ML VIAL IV PRN (08:15)
[2016-10-01] MEDS ORDERED: diphenhydrAMINE HCL 25 MG CAP PO PRN (08:15)
[2016-10-01] MEDS ORDERED: NITROGLYCERIN 0.4 MG SL 25 TABS/BTL SL PRN (08:15)
[2016-10-01] MEDS ORDERED: ALBUMIN HUMAN 25% 25 GM/100 ML BAGP IV PRN (08:15)
[2016-10-01] MEDS ORDERED: HEPARIN SODIUM - IV 10,000 UNITS/10 ML VIAL PRN (08:15)
[2016-10-01] MEDS ORDERED: ONDANSETRON HCL 4 MG/2 ML VIAL IV PRN (08:15)
[2016-10-01] MEDS ORDERED: GENTAMICIN SULFATE (DIALYSIS USE ONLY) 20 MG/2 ML VIAL IV PRN (08:15)
[2016-10-01] MEDS ORDERED: ACETAMINOPHEN 325 MG TAB PO PRN (08:15)
[2016-10-01] MEDS ORDERED: cloNIDine HCL 0.3 MG TAB PO SCH (09:00)
[2016-10-01] MEDS: EPOETIN ALFA 10,000 UNITS/ML VIAL IV PRN (09:30)
[2016-10-01] MEDS: cloNIDine HCL 0.1 MG TAB PO PRN (09:30)
[2016-10-01] MEDS: GELATIN 12 MM/7 MM FOAM TOP PRN (10:27)
--- NOTE | 2016-10-01 11:19 | PD.CONS ---
HPI Service nephrology Consult Requested By Dr. Guerra Reason for Consult ESRD Primary Care Physician Unknown History of Present Illness 41 year old ESRD, Hypertension, CHF recent AMA from Hospital, again missed dialysis, he was short of breath, edema and end up in ER again, demanding food, he is alert denies CP, has shortness of breath on exertion and it is getting worse. Review of Systems Constitutional: COMPLAINS OF: Weight gain Respiratory: COMPLAINS OF: Shortness of breath Cardiovascular: COMPLAINS OF: Lower Extremity Edema Psychiatric: COMPLAINS OF: Anxiety Past Family Social History Allergies: Coded Allergies: *MDRO Multi-Drug Resistant Organism (Verified Adverse Reaction, Unknown, MRSA, 10/01/16) MRSA PCR screen POSITIVE - 09/27/16 Past Medical History ESRD Non compliance Hyperkalemia HTN Anemia CHF Past Surgical History AVF Pericardiocentesis Reported Medications Reported Meds & Active Scripts Active Reported Hydralazine (Hydralazine HCl) 50 Mg Tab 50 Mg PO TID Take with a meal Labetalol (Labetalol HCl) 300 Mg Tab 300 Mg PO BID Clonidine (Clonidine HCl) 0.3 Mg Tab 0.3 Mg PO TID Active Ordered Medications Current Medications Medications (Trade) Dose Ordered Sig/Luis Daniel Route Start Time Stop Time Status Last Admin (NS Flush) 2 ml UNSCH PRN FLUSH 10/01/16 04:00 (NS Flush) 2 ml BID FLUSH 10/01/16 09:00 (Narcan Inj) 0.4 mg UNSCH PRN IV 10/01/16 04:00 (Apresoline Inj) 10 mg Q30M PRN IV PUSH 10/01/16 05:00 10/01/16 07:02 (Apresoline) 50 mg TID PO 10/01/16 09:00 (Trandate) 300 mg BID PO 10/01/16 09:00 (Catapres) 0.3 mg TID PO 10/01/16 08:00 Heparin Sodium (Porcine) 5000 units 5,000 units Q8HR SQ 10/01/16 14:00 (NS 1000 ml Inj) 1,000 ml @ 0 mls/hr Q0M PRN IV 10/01/16 08:02 Heparin Sodium (Porcine) 8000 units 8,000 units UNSCH PRN IVF 10/01/16 08:15 Sodium Chloride 1,000 ml @ 200 mls/hr Q5H PRN IV 10/01/16 08:02 (NS 1000 ml Inj) 1,000 ml @ 0 mls/hr Q0M PRN IV 10/01/16 08:02 (Mannitol Inj) 12.5 gm UNSCH PRN IV 10/01/16 08:15 (Albumin 25% Inj) 25 gm UNSCH PRN IV 10/01/16 08:15 (NS Flush) 5 ml UNSCH PRN IVF 10/01/16 08:15 (Heparin Inj) UNSCH PRN .XX 10/01/16 08:15 (Gentamicin (Dialysis) Inj) 20 mg UNSCH PRN IV 10/01/16 08:15 (Zofran Inj) 4 mg UNSCH PRN IV 10/01/16 08:15 (Tylenol) 650 mg UNSCH PRN PO 10/01/16 08:15 (Benadryl) 25 mg UNSCH PRN PO 10/01/16 08:15 (Nitrostat Sl) 0.4 mg UNSCH PRN SL 10/01/16 08:15 (Catapres) 0.1 mg UNSCH PRN PO 10/01/16 08:15 10/01/16 09:30 (Epogen Inj) 10,000 units UNSCH PRN IV 10/01/16 08:15 10/01/16 09:30 (Gelfoam 12 Mm/7 Mm Top) 1 foam UNSCH PRN TOP 10/01/16 08:15 10/01/16 10:27 Family History noncontributory Social History smokes marijuana Physical Exam Vital Signs Vital Signs Date Time Temp Pulse Resp B/P Pulse Ox O2 Delivery O2 Flow Rate FiO2 10/01/16 08:20 86 18 212/121 98 Room Air 10/01/16 07:01 98.4 83 18 191/116 96 Room Air 10/01/16 04:57 80 22 200/121 99 Nasal Cannula 2 10/01/16 01:43 24 96 Nasal Cannula 2 10/01/16 01:43 96 Nasal Cannula 2 10/01/16 01:21 97.7 82 25 222/128 95 Laboratory Laboratory Tests Test 10/01/16 10/01/16 01:40 05:04 White Blood Count 9.2 Red Blood Count 2.36 Hemoglobin 7.7 Hematocrit 22.6 Mean Corpuscular Volume 95.6 Mean Corpuscular Hemoglobin 32.4 Mean Corpuscular Hemoglobin 33.9 Concent Red Cell Distribution Width 18.7 Platelet Count 257 Mean Platelet Volume 8.3 Neutrophils (%) (Auto) 73.6 Lymphocytes (%) (Auto) 12.1 Monocytes (%) (Auto) 6.3 Eosinophils (%) (Auto) 6.8 Basophils (%) (Auto) 1.2 Neutrophils # (Auto) 6.8 Lymphocytes # (Auto) 1.1 Monocytes # (Auto) 0.6 Eosinophils # (Auto) 0.6 Basophils # (Auto) 0.1 CBC Comment DIFF FINAL Differential Comment Sodium Level 136 137 Potassium Level 6.0 5.1 Chloride Level 98 97 Carbon Dioxide Level 22.8 24.7 Anion Gap 15 15 Blood Urea Nitrogen 125 124 Creatinine 14.75 15.17 Estimat Glomerular Filtration 4 4 Rate Random Glucose 69 121 Calcium Level 7.4 7.4 Protein Corrected Calcium 7.4 7.5 Magnesium Level 1.9 Total Protein 7.2 6.9 Result Diagram: 10/01/16 0140 10/01/16 0504 Assessment and Plan Problem List: (1) ESRD (end stage renal disease) on dialysis Plan: he is seen during dialysis HD 6 L continue supportive care (2) Hypertensive emergency Plan: seen High non compliance Cole Manjarrez MD Oct 01, 2016 11:18
[2016-10-01] MEDS: SODIUM CHLORIDE 0.9% FLUSH 5 ML FLUSH FLUSH SCH ×2 (12:09→20:03)
[2016-10-01] MEDS: HEPARIN SODIUM - SQ 10,000 UNITS/ML VIAL SQ SCH ×2 (12:09→23:00)
[2016-10-01] MEDS: LABETALOL HCL 300 MG TAB PO SCH ×2 (12:09→20:03)
[2016-10-01] MEDS: cloNIDine HCL 0.3 MG TAB PO SCH ×4 (12:09→17:59)
[2016-10-01] MEDS: hydrALAZINE HCL 50 MG TAB PO SCH ×3 (12:09→17:58)
--- NOTE | 2016-10-01 17:23 | EKG ---
Date Performed: 10/01/2016 Time Performed: 01:30:56 PTAGE: 41 years EKG: Sinus rhythm POSSIBLE LEFT ATRIAL ENLARGEMENT NONSPECIFIC T-WAVE ABNORMALITY Compared to previous tracing, no sig nificant change BORDERLINE ECG PREVIOUS TRACING : 09/27/2016 02.10 DOCTOR: Javier Nagy Interpretating Date/Time 10/01/2016 17:21:29
[2016-10-02] VITALS (18 sets, daily range): BP systolic 149–201; BP diastolic 87–128; PULSE 67–87; RESP 16–22; TEMP 98.5–99; O2SAT 94–98
[2016-10-02] MEDS: hydrALAZINE HCL 20 MG/ML VIAL IV PUSH PRN ×2 (03:07→05:58)
[2016-10-02] MEDS: HEPARIN SODIUM - SQ 10,000 UNITS/ML VIAL SQ SCH ×3 (05:56→21:11)
[2016-10-02] MEDS: hydrALAZINE HCL 50 MG TAB PO SCH ×2 (08:15→13:08)
[2016-10-02] MEDS: cloNIDine HCL 0.3 MG TAB PO SCH ×3 (08:15→18:24)
[2016-10-02] MEDS: LABETALOL HCL 300 MG TAB PO SCH ×2 (08:15→21:10)
[2016-10-02] MEDS: SODIUM CHLORIDE 0.9% FLUSH 5 ML FLUSH FLUSH SCH ×2 (08:17→21:11)
--- NOTE | 2016-10-02 09:18 | HHI.PR ---
Subjective Remarks in no acute distress. sob has improved. BP noted that has been elevated over night. d/w the RN. Objective Vitals Vital Signs Date Time Temp Pulse Resp B/P Pulse Ox O2 Delivery O2 Flow Rate FiO2 10/02/16 08:10 85 10/02/16 08:10 98.6 80 18 201/128 96 10/02/16 07:21 83 10/02/16 06:01 71 10/02/16 05:01 68 10/02/16 04:01 87 10/02/16 03:07 98.5 73 18 176/105 94 10/02/16 03:07 76 10/02/16 02:01 76 10/02/16 01:00 82 10/02/16 00:00 80 10/01/16 23:10 76 10/01/16 23:10 98.0 74 16 160/111 97 10/01/16 22:01 76 10/01/16 21:01 84 10/01/16 20:15 98.7 85 16 178/109 97 10/01/16 20:00 84 10/01/16 19:00 85 10/01/16 18:58 159/103 10/01/16 18:03 82 10/01/16 17:58 171/109 10/01/16 17:00 76 10/01/16 16:02 83 10/01/16 15:42 98.3 82 18 161/112 98 10/01/16 15:03 77 10/01/16 14:27 170/107 10/01/16 14:00 81 10/01/16 13:14 179/115 10/01/16 13:06 82 10/01/16 12:37 86 10/01/16 12:07 97.9 83 18 195/128 97 I/O 10/01/16 10/01/16 10/01/16 10/02/16 10/02/16 10/02/16 07:00 15:00 23:00 07:00 15:00 23:00 Intake Total 922 ml 720 ml Output Total 6000 ml Balance -6000 ml 922 ml 720 ml Intake Oral 920 ml 720 ml IV Total 2 ml Output Hemodialysis 6000 ml # Voids 0 # Bowel Movements 0 Result Diagram: 10/01/16 0140 10/01/16 0504 Imaging Last Impressions Chest X-Ray 10/01/16 0139 Signed Impressions: Service Date/Time: Saturday, October 01, 2016 01:56 - CONCLUSION: 1. Cardiomegaly and findings of congestive heart failure. There has been no significant change when compared to the prior exam. Antony Colvin MD Objective Remarks GENERAL: This is a well-nourished, well-developed patient, in no apparent distress. CARDIOVASCULAR: Regular rate and regular rhythm without murmurs, gallops, or rubs. RESPIRATORY: Clear to auscultation. Breath sounds equal bilaterally. No wheezes , rales, or rhonchi. GASTROINTESTINAL: Abdomen soft, non-tender, nondistended. Normal, active bowel sounds MUSCULOSKELETAL: Extremities without clubbing, cyanosis, or edema. NEURO: Alert & Oriented x4 to person, place, time, situation. Moves all ext x4 Procedures none Medications and IVs Current Medications IV Flush (NS Flush) 2 ml UNSCH PRN IVF FLUSH AFTER USING IV ACCESS; Start 10/01 at 01:45; Stop 10/01/16 at 03:55; Status DC Clonidine (Catapres) 0.1 mg ONCE ONCE PO Last administered on 10/01/16 02:08 ; Start 10/01/16 at 01:45; Stop 10/01/16 at 01:46; Status DC Calcium Gluconate (Calcium Gluconate Inj) 1 gm ONCE ONCE SLOW IVP Last administered on 10/01/16 04:21; Start 10/01/16 at 03:45; Stop 10/01/16 at 03:46 ; Status DC Insulin Human Regular (NovoLIN R INJ) 10 units ONCE ONCE IV PUSH Last administered on 10/01/16 04:22; Start 10/01/16 at 03:45; Stop 10/01/16 at 03:46 ; Status DC Dextrose (D50w (Vial) Inj) 50 ml ONCE ONCE IV PUSH Last administered on 04:22; Start 10/01/16 at 03:45; Stop 10/01/16 at 03:46; Status DC Sodium Bicarbonate (Sodium Bicarbonate 8.4% Inj) 50 meq ONCE ONCE SLOW IVP Last administered on 10/01/16 04:21; Start 10/01/16 at 03:45; Stop 10/01/16 at 03:46; Status DC Sodium Polystyrene Sulfonate (Kayexalate Liq) 15 gm ONCE ONCE PO Last administered on 10/01/16 04:22; Start 10/01/16 at 03:45; Stop 10/01/16 at 03:46 ; Status DC IV Flush (NS Flush) 2 ml UNSCH PRN FLUSH FLUSH AFTER USING IV ACCESS; Start at 04:00 IV Flush (NS Flush) 2 ml BID FLUSH Last administered on 10/02/16 08:17; Start 10/01/16 at 09:00 Naloxone HCl (Narcan Inj) 0.4 mg UNSCH PRN IV SEE LABEL COMMENTS; Start at 04:00 Sodium Polystyrene Sulfonate (Kayexalate Liq) 15 gm ONCE ONCE PO Last administered on 10/01/16 04:23; Start 10/01/16 at 04:00; Stop 10/01/16 at 04:01 ; Status DC Hydralazine HCl (Apresoline Inj) 10 mg Q30M PRN IV PUSH bp>160/90 Last administered on 10/02/16 05:58; Start 10/01/16 at 05:00 Clonidine (Catapres) 0.3 mg TID PO ; Start 10/01/16 at 09:00; Stop 10/01/16 at 09:00; Status DC Hydralazine HCl (Apresoline) 50 mg TID PO Last administered on 10/02/16 08:15 ; Start 10/01/16 at 09:00 Labetalol HCl (Trandate) 300 mg BID PO Last administered on 10/02/16 08:15; Start 10/01/16 at 09:00 Clonidine (Catapres) 0.3 mg TID PO Last administered on 10/02/16 08:15; Start 10/01/16 at 08:00 Heparin Sodium (Porcine) 5000 units 5,000 units Q8HR SQ Last administered on 05:56; Start 10/01/16 at 14:00 Sodium Chloride (NS 1000 ml Inj) 1,000 ml @ 0 mls/hr Q0M PRN IV For Prime & Rinse Back; Start 10/01/16 at 08:02 Heparin Sodium (Porcine) 8000 units 8,000 units UNSCH PRN IVF WITH DIALYSIS; Start 10/01/16 at 08:15 Sodium Chloride 1,000 ml @ 200 mls/hr Q5H PRN IV WITH DIALYSIS; Start 10/01/16 at 08:02 Sodium Chloride (NS 1000 ml Inj) 1,000 ml @ 0 mls/hr Q0M PRN IV WITH DIALYSIS; Start 10/01/16 at 08:02 Mannitol (Mannitol Inj) 12.5 gm UNSCH PRN IV WITH DIALYSIS; Start 10/01/16 at 08:15 Albumin Human (Albumin 25% Inj) 25 gm UNSCH PRN IV WITH DIALYSIS; Start at 08:15 IV Flush (NS Flush) 5 ml UNSCH PRN IVF WITH DIALYSIS; Start 10/01/16 at 08:15 Heparin Sodium (Porcine) (Heparin Inj) UNSCH PRN .XX WITH DIALYSIS; Start at 08:15 Gentamicin Sulfate (Gentamicin (Dialysis) Inj) 20 mg UNSCH PRN IV WITH DIALYSIS ; Start 10/01/16 at 08:15 Ondansetron HCl (Zofran Inj) 4 mg UNSCH PRN IV WITH DIALYSIS; Start 10/01/16 at 08:15 Acetaminophen (Tylenol) 650 mg UNSCH PRN PO for headach, pain, temp > 101F; Start 10/01/16 at 08:15 Diphenhydramine HCl (Benadryl) 25 mg UNSCH PRN PO for hives/itching/anaphylaxis ; Start 10/01/16 at 08:15 Nitroglycerin (Nitrostat Sl) 0.4 mg UNSCH PRN SL CHEST PAIN; Start 10/01/16 at 08:15 Clonidine (Catapres) 0.1 mg UNSCH PRN PO for BP > 180/100 X 2 readings Last administered on 10/01/16 09:30; Start 10/01/16 at 08:15 Epoetin Joe (Epogen Inj) 10,000 units UNSCH PRN IV WITH DIALYSIS Last administered on 10/01/16 09:30; Start 10/01/16 at 08:15 Gelatin (Gelfoam 12 Mm/7 Mm Top) 1 foam UNSCH PRN TOP SEE LABEL COMMENTS Last administered on 10/01/16 10:27; Start 10/01/16 at 08:15 A/P Assessment and Plan A/p - ESRD- on HD ( M/W/F)- non-compliant nephrology consulted- HD per nephrology- -hyperkalemia has resolved ( he received Kayexalate, insulin, sodium Bicarb and calcium in ER) -hypertensive urgency- resumed his home meds; labetaolol, clonidine and hydralazine- will monitor and adjust the regimen as needed will consider adding procardia if BP still elevated. -anemia of chronic disease- will monitor -DVT prophylaxis with subq Heparin Froy Bhat MD Oct 02, 2016 09:18
[2016-10-02] MEDS ORDERED: NIFEdipine 30 MG SUSTAINED RELEASE TAB PO SCH (10:30)
--- NOTE | 2016-10-02 14:39 | HHI.NPPN ---
Subjective History of Present Illness 41 year old Black male non compliant with Hemodialysis and BP management came in to ER Review of Systems General Constitutional: Fatigue Cardiovascular Cardiac: Edema Musculoskeletal MS: Pain/Stiffness Objective Data Data 10/01/16 10/02/16 19:00 07:00 Intake Total 922 ml 720 ml Output Total 6000 ml Balance -5078 ml 720 ml Intake Oral 920 ml 720 ml IV Total 2 ml Output Hemodialysis 6000 ml # Voids 0 # Bowel Movements 0 Vital Signs Date Time Temp Pulse Resp B/P Pulse Ox O2 Delivery O2 Flow Rate FiO2 10/02/16 13:03 73 16 190/126 97 10/02/16 10:26 78 10/02/16 10:05 96 10/02/16 09:36 75 10/02/16 09:19 187/109 10/02/16 08:10 85 10/02/16 08:10 98.6 80 18 201/128 96 10/02/16 07:21 83 10/02/16 06:01 71 10/02/16 05:01 68 10/02/16 04:01 87 10/02/16 03:07 98.5 73 18 176/105 94 10/02/16 03:07 76 10/02/16 02:01 76 10/02/16 01:00 82 10/02/16 00:00 80 10/01/16 23:10 76 10/01/16 23:10 98.0 74 16 160/111 97 10/01/16 22:01 76 10/01/16 21:01 84 10/01/16 20:15 98.7 85 16 178/109 97 10/01/16 20:00 84 10/01/16 19:00 85 10/01/16 18:58 159/103 10/01/16 18:03 82 10/01/16 17:58 171/109 10/01/16 17:00 76 10/01/16 16:02 83 10/01/16 15:42 98.3 82 18 161/112 98 10/01/16 15:03 77 -: 10/01/16 0140 10/01/16 0504 Physical Exam General Appearance: Well Developed, Well Nourished Eyes Eye Exam: Pupils Equal Neck Neck Exam: Neck Supple Pulmonary Resp Exam: Breath Sounds Equal, Decreased Bases Cardiology CV Exam: Regular, Normal Sinus Rhythm Gastrointestinal/Abdomen GI Exam: Soft, Non-Tender, Bowel Sounds Present Extremeties Extremities Exam: Moderate Edema Assessment/Plan Problem List: (1) ESRD (end stage renal disease) on dialysis Plan: he is on HD ,WF next HD on Monday continue supportive care (2) Hypertensive emergency Plan: seen High BP due to non compliance adjust Labetalol 600 mg bid, Hydralazine 100 mg TID Procardia 30 mg bid Cole Manjarrez MD Oct 02, 2016 14:39
[2016-10-02] MEDS: ACETAMINOPHEN/HYDROcodone 325 MG/5 MG TAB PO PRN (16:10)
[2016-10-02] MEDS: hydrALAZINE HCL 100 MG TAB PO SCH (19:10)
[2016-10-02] MEDS: NIFEdipine 30 MG SUSTAINED RELEASE TAB PO SCH (21:10)
[2016-10-03] VITALS (9 sets, daily range): BP systolic 154–178; BP diastolic 99–126; PULSE 67–85; RESP 16–20; TEMP 98.1–98.8; O2SAT 95–98
[2016-10-03] MEDS: ACETAMINOPHEN/HYDROcodone 325 MG/5 MG TAB PO PRN (03:47)
[2016-10-03] MEDS: HEPARIN SODIUM - SQ 10,000 UNITS/ML VIAL SQ SCH ×2 (06:34→21:33)
[2016-10-03 07:32] LABS: AUTOMATED NEUTROPHIL # 2.8 TH/MM3 (1.8-7.7); BASOPHIL # 0.1 TH/MM3 (0-0.2); BASOPHIL % 1.2 % (0.0-2.0); EOSINOPHIL # 0.5 TH/MM3 (0-0.4); EOSINOPHIL % 9.9 % (0.0-4.0); HEMATOCRIT 21.8 % (39.0-51.0); HEMO FLAGS DIFF FINAL; LYMPH % 23.4 % (9.0-44.0); LYMPHOCYTE # 1.2 TH/MM3 (1.0-4.8); MEAN CELL VOLUME 95.3 FL (80.0-100.0); MEAN CORPUSCULAR HEMOGLOBIN 32.5 PG (27.0-34.0); MEAN CORPUSCULAR HGB CONC 34.1 % (32.0-36.0); MONO % 9.9 % (0.0-8.0); NEUT % 55.6 % (16.0-70.0); PLATELET COUNT 218 TH/MM3 (150-450); RED BLOOD COUNT 2.29 MIL/MM3 (4.50-5.90); RED CELL DISTRIBUTION WIDTH 19.1 % (11.6-17.2); WHITE BLOOD COUNT 5.1 TH/MM3 (4.0-11.0)
[2016-10-03 08:07] LABS: BICARBONATE 24.9 MEQ/L (21.0-32.0)
[2016-10-03 08:27] LABS: CALCIUM-PROTEIN CORRECTED 7.2 MG/DL (8.5-10.1)
[2016-10-03] MEDS ORDERED: LABE300T PO (08:42)
[2016-10-03] MEDS ORDERED: NIFE30TA8 PO (08:42)
[2016-10-03] MEDS ORDERED: hydrALAZINE PO (08:42)
--- NOTE | 2016-10-03 08:49 | HHI.PR ---
Subjective Remarks resting comfortably. BP has improved. no headache this morning. d/w the RN and no acute issues over night. Objective Vitals Vital Signs Date Time Temp Pulse Resp B/P Pulse Ox O2 Delivery O2 Flow Rate FiO2 10/03/16 08:15 98.3 67 16 162/111 95 10/03/16 07:23 71 10/03/16 03:25 82 10/03/16 03:00 98.8 77 18 159/101 97 10/02/16 23:00 98.9 67 20 149/94 98 10/02/16 19:00 99.0 72 22 181/87 94 10/02/16 19:00 72 10/02/16 18:09 98 21 10/02/16 16:13 98.5 77 18 164/110 98 10/02/16 13:03 73 16 190/126 97 10/02/16 10:26 78 10/02/16 10:05 96 10/02/16 09:36 75 10/02/16 09:19 187/109 I/O 10/02/16 10/02/16 10/02/16 10/03/16 10/03/16 10/03/16 07:00 15:00 23:00 07:00 15:00 23:00 Intake Total 720 ml 1760 ml 1143 ml Balance 720 ml 1760 ml 1143 ml Intake Oral 720 ml 1760 ml 1143 ml # Voids 0 1 # Bowel Movements 0 1 0 Result Diagram: 10/03/16 0607 10/01/16 0504 Imaging Last Impressions Chest X-Ray 10/01/16 0139 Signed Impressions: Service Date/Time: Saturday, October 01, 2016 01:56 - CONCLUSION: 1. Cardiomegaly and findings of congestive heart failure. There has been no significant change when compared to the prior exam. Antony Colvin MD Objective Remarks GENERAL: This is a well-nourished, well-developed patient, in no apparent distress. CARDIOVASCULAR: Regular rate and regular rhythm without murmurs, gallops, or rubs. RESPIRATORY: Clear to auscultation. Breath sounds equal bilaterally. No wheezes , rales, or rhonchi. GASTROINTESTINAL: Abdomen soft, non-tender, nondistended. Normal, active bowel sounds MUSCULOSKELETAL: Extremities without clubbing, cyanosis, or edema. NEURO: Alert & Oriented x4 to person, place, time, situation. Moves all ext x4 Procedures none Medications and IVs Current Medications IV Flush (NS Flush) 2 ml UNSCH PRN IVF FLUSH AFTER USING IV ACCESS; Start 10/01 at 01:45; Stop 10/01/16 at 03:55; Status DC Clonidine (Catapres) 0.1 mg ONCE ONCE PO Last administered on 10/01/16 02:08 ; Start 10/01/16 at 01:45; Stop 10/01/16 at 01:46; Status DC Calcium Gluconate (Calcium Gluconate Inj) 1 gm ONCE ONCE SLOW IVP Last administered on 10/01/16 04:21; Start 10/01/16 at 03:45; Stop 10/01/16 at 03:46 ; Status DC Insulin Human Regular (NovoLIN R INJ) 10 units ONCE ONCE IV PUSH Last administered on 10/01/16 04:22; Start 10/01/16 at 03:45; Stop 10/01/16 at 03:46 ; Status DC Dextrose (D50w (Vial) Inj) 50 ml ONCE ONCE IV PUSH Last administered on 04:22; Start 10/01/16 at 03:45; Stop 10/01/16 at 03:46; Status DC Sodium Bicarbonate (Sodium Bicarbonate 8.4% Inj) 50 meq ONCE ONCE SLOW IVP Last administered on 10/01/16 04:21; Start 10/01/16 at 03:45; Stop 10/01/16 at 03:46; Status DC Sodium Polystyrene Sulfonate (Kayexalate Liq) 15 gm ONCE ONCE PO Last administered on 10/01/16 04:22; Start 10/01/16 at 03:45; Stop 10/01/16 at 03:46 ; Status DC IV Flush (NS Flush) 2 ml UNSCH PRN FLUSH FLUSH AFTER USING IV ACCESS; Start at 04:00 IV Flush (NS Flush) 2 ml BID FLUSH Last administered on 10/02/16 21:11; Start 10/01/16 at 09:00 Naloxone HCl (Narcan Inj) 0.4 mg UNSCH PRN IV SEE LABEL COMMENTS; Start at 04:00 Sodium Polystyrene Sulfonate (Kayexalate Liq) 15 gm ONCE ONCE PO Last administered on 10/01/16 04:23; Start 10/01/16 at 04:00; Stop 10/01/16 at 04:01 ; Status DC Hydralazine HCl (Apresoline Inj) 10 mg Q30M PRN IV PUSH bp>160/90 Last administered on 10/02/16 05:58; Start 10/01/16 at 05:00 Clonidine (Catapres) 0.3 mg TID PO ; Start 10/01/16 at 09:00; Stop 10/01/16 at 09:00; Status DC Hydralazine HCl (Apresoline) 50 mg TID PO Last administered on 10/02/16 13:08 ; Start 10/01/16 at 09:00; Stop 10/02/16 at 14:36; Status DC Labetalol HCl (Trandate) 300 mg BID PO Last administered on 10/02/16 08:15; Start 10/01/16 at 09:00; Stop 10/02/16 at 14:36; Status DC Clonidine (Catapres) 0.3 mg TID PO Last administered on 10/02/16 18:24; Start 10/01/16 at 08:00 Heparin Sodium (Porcine) 5000 units 5,000 units Q8HR SQ Last administered on 06:34; Start 10/01/16 at 14:00 Sodium Chloride (NS 1000 ml Inj) 1,000 ml @ 0 mls/hr Q0M PRN IV For Prime & Rinse Back; Start 10/01/16 at 08:02 Heparin Sodium (Porcine) 8000 units 8,000 units UNSCH PRN IVF WITH DIALYSIS; Start 10/01/16 at 08:15 Sodium Chloride 1,000 ml @ 200 mls/hr Q5H PRN IV WITH DIALYSIS; Start 10/01/16 at 08:02 Sodium Chloride (NS 1000 ml Inj) 1,000 ml @ 0 mls/hr Q0M PRN IV WITH DIALYSIS; Start 10/01/16 at 08:02 Mannitol (Mannitol Inj) 12.5 gm UNSCH PRN IV WITH DIALYSIS; Start 10/01/16 at 08:15 Albumin Human (Albumin 25% Inj) 25 gm UNSCH PRN IV WITH DIALYSIS; Start at 08:15 IV Flush (NS Flush) 5 ml UNSCH PRN IVF WITH DIALYSIS; Start 10/01/16 at 08:15 Heparin Sodium (Porcine) (Heparin Inj) UNSCH PRN .XX WITH DIALYSIS; Start at 08:15 Gentamicin Sulfate (Gentamicin (Dialysis) Inj) 20 mg UNSCH PRN IV WITH DIALYSIS ; Start 10/01/16 at 08:15 Ondansetron HCl (Zofran Inj) 4 mg UNSCH PRN IV WITH DIALYSIS; Start 10/01/16 at 08:15 Acetaminophen (Tylenol) 650 mg UNSCH PRN PO for headach, pain, temp > 101F Last administered on 10/02/16 11:45; Start 10/01/16 at 08:15 Diphenhydramine HCl (Benadryl) 25 mg UNSCH PRN PO for hives/itching/anaphylaxis ; Start 10/01/16 at 08:15 Nitroglycerin (Nitrostat Sl) 0.4 mg UNSCH PRN SL CHEST PAIN; Start 10/01/16 at 08:15 Clonidine (Catapres) 0.1 mg UNSCH PRN PO for BP > 180/100 X 2 readings Last administered on 10/01/16 09:30; Start 10/01/16 at 08:15 Epoetin Joe (Epogen Inj) 10,000 units UNSCH PRN IV WITH DIALYSIS Last administered on 10/01/16 09:30; Start 10/01/16 at 08:15 Gelatin (Gelfoam 12 Mm/7 Mm Top) 1 foam UNSCH PRN TOP SEE LABEL COMMENTS Last administered on 10/01/16 10:27; Start 10/01/16 at 08:15 Nifedipine (Procardia Xl) 30 mg DAILY PO Last administered on 10/02/16 11:43; Start 10/02/16 at 10:30; Stop 10/02/16 at 14:40; Status DC Acetaminophen/ Hydrocodone Bitart ([place] 5-325 Mg) 1 tab Q6H PRN PO PAIN SCALE 1 TO 10 Last administered on 10/03/16 03:47; Start 10/02/16 at 13:45 Hydralazine HCl (Apresoline) 100 mg TID PO Last administered on 10/02/16 19:10 ; Start 10/02/16 at 18:00 Labetalol HCl (Trandate) 600 mg BID PO Last administered on 10/02/16 21:10; Start 10/02/16 at 21:00 Nifedipine (Procardia Xl) 30 mg BID PO Last administered on 10/02/16 21:10; Start 10/02/16 at 21:00 A/P Assessment and Plan A/p - ESRD- on HD ( M/W/F)- non-compliant nephrology consulted- HD per nephrology- -hyperkalemia; has resolved ( he received Kayexalate, insulin, sodium Bicarb and calcium in ER) -hypertensive urgency- BP improved overall; increased labetalol and hydralazine - continue clonidine- added procardia will continue to monitor and adjust the regimen as needed -anemia of chronic disease- will monitor -DVT prophylaxis with subq Heparin Discharge Planning possible dc home in am if stable. Froy Bhat MD Oct 03, 2016 08:49
[2016-10-03] MEDS: NIFEdipine 30 MG SUSTAINED RELEASE TAB PO SCH ×2 (09:35→21:33)
[2016-10-03] MEDS: LABETALOL HCL 300 MG TAB PO SCH ×2 (09:35→21:33)
[2016-10-03] MEDS: cloNIDine HCL 0.3 MG TAB PO SCH ×3 (09:35→17:44)
[2016-10-03] MEDS: hydrALAZINE HCL 100 MG TAB PO SCH ×3 (09:35→17:44)
[2016-10-03] MEDS: SODIUM CHLORIDE 0.9% FLUSH 5 ML FLUSH FLUSH SCH ×2 (09:37→21:00)
[2016-10-03] MEDS ORDERED: CALCIUM GLUCONATE INJ 1 GM in DEXTROSE 5% IN WATER 100ML INJ 100 ML IV ONE ×2 (10:00)
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
[2016-10-03] MEDS: GELATIN 12 MM/7 MM FOAM TOP PRN (17:03)
[2016-10-03] MEDS: EPOETIN ALFA 10,000 UNITS/ML VIAL IV PRN (17:03)
[2016-10-03] MEDS ORDERED: DOCUSATE SODIUM 100 MG CAP PO ONE (22:15)
[2016-10-03] MEDS ORDERED: BISACODYL EC 5 MG TABEC PO ONE (22:15)
[2016-10-04] VITALS (7 sets, daily range): BP systolic 106–208; BP diastolic 60–124; PULSE 69–72; RESP 16–18; TEMP 97.5–98.2; O2SAT 96–99
[2016-10-04] MEDS: cloNIDine HCL 0.1 MG TAB PO PRN (01:54)
[2016-10-04] MEDS: HEPARIN SODIUM - SQ 10,000 UNITS/ML VIAL SQ SCH (06:26)
[2016-10-04 07:55] LABS: BICARBONATE 27.5 MEQ/L (21.0-32.0); POTASSIUM 4.7 MEQ/L (3.5-5.1)
[2016-10-04] MEDS: hydrALAZINE HCL 100 MG TAB PO SCH ×2 (08:11→12:07)
[2016-10-04] MEDS: SODIUM CHLORIDE 0.9% FLUSH 5 ML FLUSH FLUSH SCH (08:11)
[2016-10-04] MEDS: cloNIDine HCL 0.3 MG TAB PO SCH ×2 (08:12→12:07)
[2016-10-04] MEDS: NIFEdipine 30 MG SUSTAINED RELEASE TAB PO SCH (08:12)
[2016-10-04] MEDS: LABETALOL HCL 300 MG TAB PO SCH (08:12)
[2016-10-04] MEDS: DOCUSATE SODIUM 100 MG CAP PO SCH ×2 (08:12→12:09)
--- NOTE | 2016-10-04 10:43 | HHI.NPPN ---
Subjective History of Present Illness 41 year old Black male non compliant with Hemodialysis and BP management came in to ER Review of Systems General Constitutional: Fatigue Cardiovascular Cardiac: Edema Musculoskeletal MS: Pain/Stiffness Objective Data Data 10/03/16 10/04/16 19:00 07:00 Intake Total 1080 ml 240 ml Output Total 5000 ml Balance -3920 ml 240 ml Intake Oral 1080 ml 240 ml Hemodialysis 5000 ml # Voids 1 0 Vital Signs Date Time Temp Pulse Resp B/P Pulse Ox O2 Delivery O2 Flow Rate FiO2 10/04/16 08:00 98.2 69 16 208/124 96 10/04/16 03:51 178/98 10/04/16 03:07 72 10/04/16 03:00 98.2 72 18 194/122 99 10/03/16 23:00 98.3 83 16 154/104 96 10/03/16 19:00 98.1 80 17 178/107 98 10/03/16 19:00 83 10/03/16 17:35 98.1 85 18 159/99 98 10/03/16 13:05 95 21 10/03/16 12:53 98.1 67 20 176/126 96 -: 10/03/16 0607 10/04/16 0601 Physical Exam General Appearance: Well Developed, Well Nourished Eyes Eye Exam: Pupils Equal Neck Neck Exam: Neck Supple Pulmonary Resp Exam: Breath Sounds Equal, Decreased Bases Cardiology CV Exam: Regular, Normal Sinus Rhythm Gastrointestinal/Abdomen GI Exam: Soft, Non-Tender, Bowel Sounds Present Extremeties Extremities Exam: Moderate Edema Assessment/Plan Problem List: (1) ESRD (end stage renal disease) on dialysis Plan: he is on HD M,WF next HD on Monday hemodialysis done yesterday BP high 198/101 after medications give Minoxidil 10 mg now increase Nifedipine XR 60 MG BID (2) Hypertensive emergency Plan: seen High BP due to non compliance Labetalol 600 mg bid, Hydralazine 100 mg TID, clonidine Procardia Increased to 60 mg bid added Minoxidil Cole Manjarrez MD Oct 04, 2016 10:43
[2016-10-04] MEDS ORDERED: MINOXIDIL 10 MG TAB PO ONE (10:45)
--- NOTE | 2016-10-04 12:11 | HHI.PR ---
Subjective Remarks not pleasant today. he says that ' he just wants to go home '. d/w the RN. Objective Vitals Vital Signs Date Time Temp Pulse Resp B/P Pulse Ox O2 Delivery O2 Flow Rate FiO2 10/04/16 11:52 96 10/04/16 10:00 69 198/101 10/04/16 08:00 98.2 69 16 208/124 96 10/04/16 03:51 178/98 10/04/16 03:07 72 10/04/16 03:00 98.2 72 18 194/122 99 10/03/16 23:00 98.3 83 16 154/104 96 10/03/16 19:00 98.1 80 17 178/107 98 10/03/16 19:00 83 10/03/16 17:35 98.1 85 18 159/99 98 10/03/16 13:05 95 21 10/03/16 12:53 98.1 67 20 176/126 96 I/O 10/03/16 10/03/16 10/03/16 10/04/16 10/04/16 10/04/16 07:00 15:00 23:00 07:00 15:00 23:00 Intake Total 1143 ml 1080 ml 240 ml Output Total 5000 ml Balance 1143 ml -3920 ml 240 ml Intake Oral 1143 ml 1080 ml 240 ml Hemodialysis 5000 ml # Voids 1 1 0 # Bowel Movements 0 Result Diagram: 10/03/16 0607 10/04/16 0601 Imaging Last Impressions Chest X-Ray 10/01/16 0139 Signed Impressions: Service Date/Time: Saturday, October 01, 2016 01:56 - CONCLUSION: 1. Cardiomegaly and findings of congestive heart failure. There has been no significant change when compared to the prior exam. Antony Colvin MD Objective Remarks GENERAL: This is a well-nourished, well-developed patient, in no apparent distress. CARDIOVASCULAR: Regular rate and regular rhythm without murmurs, gallops, or rubs. RESPIRATORY: Clear to auscultation. Breath sounds equal bilaterally. No wheezes , rales, or rhonchi. GASTROINTESTINAL: Abdomen soft, non-tender, nondistended. Normal, active bowel sounds MUSCULOSKELETAL: Extremities without clubbing, cyanosis, or edema. NEURO: Alert & Oriented x4 to person, place, time, situation. Moves all ext x4 Procedures none Medications and IVs Current Medications IV Flush (NS Flush) 2 ml UNSCH PRN IVF FLUSH AFTER USING IV ACCESS; Start 10/01 at 01:45; Stop 10/01/16 at 03:55; Status DC Clonidine (Catapres) 0.1 mg ONCE ONCE PO Last administered on 10/01/16 02:08 ; Start 10/01/16 at 01:45; Stop 10/01/16 at 01:46; Status DC Calcium Gluconate (Calcium Gluconate Inj) 1 gm ONCE ONCE SLOW IVP Last administered on 10/01/16 04:21; Start 10/01/16 at 03:45; Stop 10/01/16 at 03:46 ; Status DC Insulin Human Regular (NovoLIN R INJ) 10 units ONCE ONCE IV PUSH Last administered on 10/01/16 04:22; Start 10/01/16 at 03:45; Stop 10/01/16 at 03:46 ; Status DC Dextrose (D50w (Vial) Inj) 50 ml ONCE ONCE IV PUSH Last administered on 04:22; Start 10/01/16 at 03:45; Stop 10/01/16 at 03:46; Status DC Sodium Bicarbonate (Sodium Bicarbonate 8.4% Inj) 50 meq ONCE ONCE SLOW IVP Last administered on 10/01/16 04:21; Start 10/01/16 at 03:45; Stop 10/01/16 at 03:46; Status DC Sodium Polystyrene Sulfonate (Kayexalate Liq) 15 gm ONCE ONCE PO Last administered on 10/01/16 04:22; Start 10/01/16 at 03:45; Stop 10/01/16 at 03:46 ; Status DC IV Flush (NS Flush) 2 ml UNSCH PRN FLUSH FLUSH AFTER USING IV ACCESS; Start at 04:00 IV Flush (NS Flush) 2 ml BID FLUSH Last administered on 10/04/16 08:11; Start 10/01/16 at 09:00 Naloxone HCl (Narcan Inj) 0.4 mg UNSCH PRN IV SEE LABEL COMMENTS; Start at 04:00 Sodium Polystyrene Sulfonate (Kayexalate Liq) 15 gm ONCE ONCE PO Last administered on 10/01/16 04:23; Start 10/01/16 at 04:00; Stop 10/01/16 at 04:01 ; Status DC Hydralazine HCl (Apresoline Inj) 10 mg Q30M PRN IV PUSH bp>160/90 Last administered on 10/02/16 05:58; Start 10/01/16 at 05:00 Clonidine (Catapres) 0.3 mg TID PO ; Start 10/01/16 at 09:00; Stop 10/01/16 at 09:00; Status DC Hydralazine HCl (Apresoline) 50 mg TID PO Last administered on 10/02/16 13:08 ; Start 10/01/16 at 09:00; Stop 10/02/16 at 14:36; Status DC Labetalol HCl (Trandate) 300 mg BID PO Last administered on 10/02/16 08:15; Start 10/01/16 at 09:00; Stop 10/02/16 at 14:36; Status DC Clonidine (Catapres) 0.3 mg TID PO Last administered on 10/04/16 08:12; Start 10/01/16 at 08:00 Heparin Sodium (Porcine) 5000 units 5,000 units Q8HR SQ Last administered on 21:33; Start 10/01/16 at 14:00 Sodium Chloride (NS 1000 ml Inj) 1,000 ml @ 0 mls/hr Q0M PRN IV For Prime & Rinse Back; Start 10/01/16 at 08:02 Heparin Sodium (Porcine) 8000 units 8,000 units UNSCH PRN IVF WITH DIALYSIS; Start 10/01/16 at 08:15 Sodium Chloride 1,000 ml @ 200 mls/hr Q5H PRN IV WITH DIALYSIS; Start 10/01/16 at 08:02 Sodium Chloride (NS 1000 ml Inj) 1,000 ml @ 0 mls/hr Q0M PRN IV WITH DIALYSIS; Start 10/01/16 at 08:02 Mannitol (Mannitol Inj) 12.5 gm UNSCH PRN IV WITH DIALYSIS; Start 10/01/16 at 08:15 Albumin Human (Albumin 25% Inj) 25 gm UNSCH PRN IV WITH DIALYSIS; Start at 08:15 IV Flush (NS Flush) 5 ml UNSCH PRN IVF WITH DIALYSIS; Start 10/01/16 at 08:15 Heparin Sodium (Porcine) (Heparin Inj) UNSCH PRN .XX WITH DIALYSIS; Start at 08:15 Gentamicin Sulfate (Gentamicin (Dialysis) Inj) 20 mg UNSCH PRN IV WITH DIALYSIS ; Start 10/01/16 at 08:15 Ondansetron HCl (Zofran Inj) 4 mg UNSCH PRN IV WITH DIALYSIS; Start 10/01/16 at 08:15 Acetaminophen (Tylenol) 650 mg UNSCH PRN PO for headach, pain, temp > 101F Last administered on 10/02/16 11:45; Start 10/01/16 at 08:15 Diphenhydramine HCl (Benadryl) 25 mg UNSCH PRN PO for hives/itching/ anaphylaxis Last administered on 10/04/16 01:45; Start 10/01/16 at 08:15 Nitroglycerin (Nitrostat Sl) 0.4 mg UNSCH PRN SL CHEST PAIN; Start 10/01/16 at 08:15 Clonidine (Catapres) 0.1 mg UNSCH PRN PO for BP > 180/100 X 2 readings Last administered on 10/04/16 01:54; Start 10/01/16 at 08:15 Epoetin Joe (Epogen Inj) 10,000 units UNSCH PRN IV WITH DIALYSIS Last administered on 10/03/16 17:03; Start 10/01/16 at 08:15 Gelatin (Gelfoam 12 Mm/7 Mm Top) 1 foam UNSCH PRN TOP SEE LABEL COMMENTS Last administered on 10/03/16 17:03; Start 10/01/16 at 08:15 Nifedipine (Procardia Xl) 30 mg DAILY PO Last administered on 10/02/16 11:43; Start 10/02/16 at 10:30; Stop 10/02/16 at 14:40; Status DC Acetaminophen/ Hydrocodone Bitart ([place] 5-325 Mg) 1 tab Q6H PRN PO PAIN SCALE 1 TO 10 Last administered on 10/03/16 03:47; Start 10/02/16 at 13:45 Hydralazine HCl (Apresoline) 100 mg TID PO Last administered on 10/04/16 08:11 ; Start 10/02/16 at 18:00 Labetalol HCl (Trandate) 600 mg BID PO Last administered on 10/04/16 08:12; Start 10/02/16 at 21:00 Nifedipine 30 mg 30 mg BID PO Last administered on 10/04/16 08:12; Start 10/02 at 21:00; Stop 10/04/16 at 10:42; Status DC Calcium Gluconate/ Dextrose (Calcium Gluconate Inj/D5W 100 ml Inj) 110 ml @ 110 mls/hr ONCE ONCE IV Last administered on 10/03/16 17:45; Start 10/03/16 at 10:00; Stop 10/03/16 at 10:59; Status DC Docusate Sodium (Colace) 100 mg TID PO ; Start 10/04/16 at 09:00 Docusate Sodium (Colace) 100 mg ONCE ONCE PO ; Start 10/03/16 at 22:15; Stop at 22:16; Status DC Bisacodyl (Dulcolax Ec) 10 mg ONCE ONCE PO Last administered on 10/03/16 22: 12; Start 10/03/16 at 22:15; Stop 10/03/16 at 22:16; Status DC Minoxidil (Loniten) 10 mg ONCE ONCE PO ; Start 10/04/16 at 10:45; Stop at 10:55; Status DC Minoxidil (Loniten) 10 mg DAILY PO ; Start 10/05/16 at 09:00 Nifedipine (Procardia Xl) 60 mg BID PO ; Start 10/04/16 at 21:00 A/P Assessment and Plan A/p - ESRD- on HD ( M/W/F)- non-compliant nephrology consulted- HD per nephrology- -hyperkalemia; has resolved ( he received Kayexalate, insulin, sodium Bicarb and calcium in ER) -hypertensive urgency- BP still not controlled; increased labetalol and hydralazine- continue clonidine- added procardia and minoxidil. will continue to monitor and adjust the regimen as needed -anemia of chronic disease- will monitor -DVT prophylaxis with subq Heparin had a detailed discussion with the patient. he was advised to stay one more night for his BP monitoring and medication adjustment. however he wants to sign out against medical advice. this was d/w the RN. Discharge Planning possible dc home in am if stable. Froy Bhat MD Oct 04, 2016 12:11
[2016-10-04] MEDS ORDERED: NIFE60TA8 PO (12:12)
[2016-10-04] MEDS ORDERED: CLON0.3T PO (12:15)
[2016-10-04] MEDS ORDERED: NIFEdipine 60 MG SUSTAINED RELEASE TAB PO SCH (21:00)
[2016-10-05] MEDS ORDERED: MINOXIDIL 10 MG TAB PO SCH (09:00)
--- NOTE | 2016-10-23 13:48 | HHI.DS ---
Discharge Summary Admission Date Oct 01, 2016 at 03:53 Discharge Date: Oct 04, 2016 Admitting Diagnosis ESRD, Dyspnea, HyperK (1) Hyperkalemia ICD Code: E87.5 Diagnosis: Principal (2) ESRD (end stage renal disease) on dialysis ICD Code: N18.6 Diagnosis: Principal (3) Volume overload ICD Code: E87.70 Diagnosis: Principal Procedures none Brief History - From Admission patient is a 41 y/o male with history of ESRD- on HD, who was just recently admitted to this hospital with respiratory failure- s/p intubation presented to ER again with sob he decided to sign out against medical advice last time. he says that he didn't have any more dialysis since last admission. he started to have some sob and then he decided to come back to the hospital. he says that now his sob has improved. he denies any other complaints. PE at Discharge GENERAL: This is a well-nourished, well-developed patient, in no apparent distress. CARDIOVASCULAR: Regular rate and regular rhythm without murmurs, gallops, or rubs. RESPIRATORY: Clear to auscultation. Breath sounds equal bilaterally. No wheezes , rales, or rhonchi. GASTROINTESTINAL: Abdomen soft, non-tender, nondistended. Normal, active bowel sounds MUSCULOSKELETAL: Extremities without clubbing, cyanosis, or edema. NEURO: Alert & Oriented x4 to person, place, time, situation. Moves all ext x4 Hospital Course - ESRD- on HD ( M/W/F)- non-compliant nephrology consulted- HD per nephrology- -hyperkalemia; has resolved ( he received Kayexalate, insulin, sodium Bicarb and calcium in ER) -hypertensive urgency- BP still not controlled; increased labetalol and hydralazine- continue clonidine- added procardia and minoxidil. will continue to monitor and adjust the regimen as needed -anemia of chronic disease- will monitor -DVT prophylaxis with subq Heparin Pt Condition on Discharge: Fair Discharge Disposition: Discharge Home Discharge Time: <= 30 minutes (patient left againt medical advice.) Froy Bhat MD Oct 23, 2016 13:48
== END 2016-10-04 13:00 | disposition left against medical advice (07) | DRG 291 ==
LOC: NEPE 01:07 → NEDA 03:51 → OBSVTOIN 03:53 → NEDH 07:42 → HCIN 11:57 → N04B 10-04 02:43
PROVIDERS: ADMIT Internal Medicine; ATTEND Internal Medicine
DX: I13.2 Hypertensive heart and chronic kidney disease with heart failure and with stage 5 chronic kidney disease, or end stage renal disease (principal); N18.6 End stage renal disease; J96.01 Acute respiratory failure with hypoxia; I50.9 Heart failure, unspecified; Z99.2 Dependence on renal dialysis; Z91.15 Patient's noncompliance with renal dialysis; E87.5 Hyperkalemia; I16.0 Hypertensive urgency; F12.90 Cannabis use, unspecified, uncomplicated; F17.210 Nicotine dependence, cigarettes, uncomplicated; Z76.5 Malingerer [conscious simulation]; Z91.19 Patient's noncompliance with other medical treatment and regimen
CPT/HCPCS: 71010; 80048; 82040; 83735; 84155; 85025; 90935; 93005; 96374; J0360; J0610; J1644; J1815; Q4081

== ENCOUNTER 2016-10-05 09:48 | Emergency (ER) | payer SELFPAY ==
[~2016-10-05] VITALS: Ht 175.3 cm; Wt 75.0 kg
[2016-10-05] VITALS (7 sets, daily range): BP systolic 126–200; BP diastolic 81–106; PULSE 77–96; RESP 17–20; TEMP 97.7–97.8; O2SAT 95–98
[~2016-10-05 09:48] MED LIST changes: -HYDR50TA15 PO; +NIFE60TA8 PO; +hydrALAZINE PO
--- NOTE | 2016-10-05 10:39 | PD ---
HPI Chief Complaint: Hypertension Time Seen by Provider: 10:21 Travel History International Travel<30 days: No Contact w/Intl Traveler<30days: No Traveled to known affect area: No History of Present Illness HPI 41-year-old man, end-stage renal disease on Monday dialysis, hypertension and CHF, complicated by noncompliance, presents back to the emergency department for the seventh time this month after being discharged from hospital yesterday complaining of elevated blood pressure. He states he has not filled any of his blood pressure medications. Also complains of some headache. He initially stated he had an appointment at 2:00 in the [place] to get his dialysis done. He then stated that they given away spot because he had not been going. He states that he is going to be going back to [place] but that his mom does not want him to "get on the bus sick". History Past Medical History Narrative Medical End-stage renal disease, Monday hemodialysis Hypertension CHF Tetanus Vaccination: < 5 Years Social History Alcohol Use: No Tobacco Use: Yes Allergies-Medications (Allergen,Severity, Reaction): Coded Allergies: *MDRO Multi-Drug Resistant Organism (Verified Adverse Reaction, Unknown, MRSA, 10/05/16) MRSA PCR screen POSITIVE - 09/27/16 Reported Meds & Prescriptions Reported Meds & Active Scripts Active Clonidine (Clonidine HCl) 0.3 Mg Tab 0.3 Mg PO TID Nifedipine ER 24 HR (Nifedipine) 60 Mg Tab 60 Mg PO BID 30 Days [hydrALAZINE] 100 MG Tab 100 Mg PO TID 30 Days Labetalol (Labetalol HCl) 300 Mg Tab 600 Mg PO BID 30 Days Review of Systems Except as stated in HPI: all other systems reviewed are Neg Physical Exam Narrative GENERAL: 41-year-old man, no acute distress. SKIN: Warm and dry. NECK: Trachea midline. No JVD. CARDIOVASCULAR: Regular rate and rhythm. No murmur appreciated. RESPIRATORY: No accessory muscle use. Clear to auscultation. Breath sounds equal bilaterally. No Rales. GASTROINTESTINAL: Abdomen soft, non-tender, nondistended. Hepatic and splenic margins not palpable. MUSCULOSKELETAL: No obvious deformities. Chronic edema both lower extremities. Data Data Last Documented VS Vital Signs Date Time Temp Pulse Resp B/P Pulse Ox O2 Delivery O2 Flow Rate FiO2 10/05/16 14:30 81 18 158/96 97 Room Air 10/05/16 14:05 21 10/05/16 12:34 97.8 Orders Clonidine (Catapres) (10/05/16 10:45) Labetalol (Trandate) (10/05/16 10:45) Nifedipine Sr (Procardia Xl) (10/05/16 10:45) Hydralazine (Apresoline) (10/05/16 10:45) Basic Metabolic Panel (Bmp) (10/05/16 11:04) Diet Renal (10/05/16 Lunch) ^ Blood Flow Rate (10/05/16 13:53) ^ Dialysate Flow Rate (10/05/16 13:53) ^ Dialyzer (10/05/16 13:53) ^ Concentrate (10/05/16 13:53) ^ Acid Concentrate (10/05/16 13:53) ^ Length Of Dialysis (10/05/16 13:53) ^ Frequency Of Dialysis (10/05/16 13:53) ^ Dialysis Obtain (10/05/16 13:53) ^ Needle Size (10/05/16 13:53) ^ Dialysis Schedule (10/05/16 13:53) Resp Oxygen Satish C Titrat 1-4 L (10/05/16 ) ^ Dialysis Weight (10/05/16 13:53) ^ Obtain As Needed (10/05/16 13:53) Sodium Chlor 0.9% 1000 Ml Inj (Ns 1000 M (10/05/16 13:53) Heparin Inj (Heparin Inj) (10/05/16 14:00) Sodium Chlor 0.9% 1000 Ml Inj (Ns 1000 M (10/05/16 13:53) Sodium Chlor 0.9% 1000 Ml Inj (Ns 1000 M (10/05/16 13:53) Mannitol Inj (Mannitol Inj) (10/05/16 14:00) Albumin 25% Inj (Albumin 25% Inj) (10/05/16 14:00) Sodium Chloride 0.9% Flush (Ns Flush) (10/05/16 14:00) Ondansetron Inj (Zofran Inj) (10/05/16 14:00) Acetaminophen (Tylenol) (10/05/16 14:00) Diphenhydramine (Benadryl) (10/05/16 14:00) Nitroglycerin Sl (Nitrostat Sl) (10/05/16 14:00) Clonidine (Catapres) (10/05/16 14:00) Epoetin Joe Inj (Epogen Inj) (10/05/16 14:00) Gelatin 12 Mm/7 Mm Top (Gelfoam 12 Mm/7 (10/05/16 14:00) Labs Laboratory Tests Test 10/05/16 12:00 Sodium Level 136 MEQ/L Potassium Level 6.2 MEQ/L Chloride Level 98 MEQ/L Carbon Dioxide Level 26.8 MEQ/L Anion Gap 11 MEQ/L Blood Urea Nitrogen 98 MG/DL Creatinine 12.86 MG/DL Estimat Glomerular Filtration 5 ML/MIN Rate Random Glucose 102 MG/DL Calcium Level 7.8 MG/DL MDM Medical Decision Making Medical Screen Exam Complete: Yes Emergency Medical Condition: Yes Interpretation(s) BMP potassium 6.2, BUN/creatinine 98/12.8 Differential Diagnosis End-stage renal disease, hypertension, noncompliance, other Narrative Course Medical decision making INITIAL: 41-year-old man with end-stage renal disease, noncompliant with medications, noncompliant with dialysis, presents complaining of elevated blood pressure. We'll give him his blood pressure medications. We will have Case management see him. Unclear where his outpatient dialysis center is now. Likely discharge outpatient dialysis as planned. FINAL: Spoke with case management. They report that patient has no outpatient dialysis arranged. They spoke with [facility]. He apparently has missed so many appointments with them they report are refusing to take him back. Patient states she's planning on going to [place] today or tomorrow. Labs do show significant hyperkalemia. We'll plan on dialysis now, outpatient follow-up in [place] with his renal doctor. Diagnosis Primary Impression: Hyperkalemia Additional Impression: ESRD (end stage renal disease) on dialysis Additional Instructions: Call today to make an appointment with your previous dialysis center in [place]. Take your blood pressure medicines as prescribed. Med/Other Pt SpecificInfo: Prescription(s) given Disposition: DISCHARGE HOME Condition: Stable Huan Contreras MD Oct 05, 2016 10:39
[2016-10-05] MEDS ORDERED: LABETALOL HCL 300 MG TAB PO ONE (10:45)
[2016-10-05] MEDS ORDERED: cloNIDine HCL 0.1 MG TAB PO ONE (10:45)
[2016-10-05] MEDS ORDERED: hydrALAZINE HCL 100 MG TAB PO ONE (10:45)
[2016-10-05] MEDS ORDERED: NIFEdipine 60 MG SUSTAINED RELEASE TAB PO ONE (10:45)
[2016-10-05 12:42] LABS: BICARBONATE 26.8 MEQ/L (21.0-32.0); POTASSIUM 6.2 MEQ/L (3.5-5.1)
[2016-10-05] MEDS ORDERED: SODIUM CHLOR 0.9% 1000 ML INJ 1,000 ML IV PRN ×3 (13:53)
[2016-10-05] MEDS ORDERED: EPOETIN ALFA 10,000 UNITS/ML VIAL IV PRN (14:00)
[2016-10-05] MEDS ORDERED: SODIUM CHLORIDE 0.9% FLUSH 5 ML FLUSH IVF PRN (14:00)
[2016-10-05] MEDS ORDERED: ACETAMINOPHEN 325 MG TAB PO PRN (14:00)
[2016-10-05] MEDS ORDERED: MANNITOL 12.5 GM/50 ML VIAL IV PRN (14:00)
[2016-10-05] MEDS ORDERED: HEPARIN SODIUM - IV 10,000 UNITS/10 ML VIAL IVF PRN (14:00)
[2016-10-05] MEDS ORDERED: NITROGLYCERIN 0.4 MG SL 25 TABS/BTL SL PRN (14:00)
[2016-10-05] MEDS ORDERED: ALBUMIN HUMAN 25% 25 GM/100 ML BAGP IV PRN (14:00)
[2016-10-05] MEDS ORDERED: cloNIDine HCL 0.1 MG TAB PO PRN (14:00)
[2016-10-05] MEDS ORDERED: ONDANSETRON HCL 4 MG/2 ML VIAL IV PRN (14:00)
[2016-10-05] MEDS ORDERED: diphenhydrAMINE HCL 25 MG CAP PO PRN (14:00)
[2016-10-05] MEDS ORDERED: GELATIN 12 MM/7 MM FOAM TOP PRN (14:00)
--- NOTE | 2016-10-05 14:05 | PD.CONS ---
HPI Service Nephrology Consult Requested By Dr. Contreras Reason for Consult ESRD hyperkalemia Primary Care Physician No Primary Care Physician History of Present Illness 41-year-old male with history of end-stage renal disease, hypertension, congestive heart failure, noncompliance with hemodialysis, several admissions during the past month and leaving hospital AGAINST MEDICAL ADVICE, several instances of unprovoked aggression against nursing staff, he is here for his hemodialysis as he missed his dialysis at [place] and was told his insurance no longer accepted at the facility. This was prior authorization for the length of his stay in [place] and now he has to go back to [place] for further dialysis management. He states his legs are bothering him and he has edema since discharge, he continued to drink some water and eat regular food with no restrictions. Review of Systems Constitutional: COMPLAINS OF: Fatigue Cardiovascular: COMPLAINS OF: Dyspnea on Exertion, Lower Extremity Edema Psychiatric: COMPLAINS OF: Anxiety Past Family Social History Allergies: Coded Allergies: *MDRO Multi-Drug Resistant Organism (Verified Adverse Reaction, Unknown, MRSA, 10/05/16) MRSA PCR screen POSITIVE - 09/27/16 Past Medical History ESRD recurrent admissions Noncompliance with dialysis and his medication Hyperkalemia Congestive heart failure Accelerated hypertension Anemia Peripheral edema History of pericardial effusion Past Surgical History AV fistula Pericardiocentesis Reported Medications Reported Meds & Active Scripts Active Clonidine (Clonidine HCl) 0.3 Mg Tab 0.3 Mg PO TID Nifedipine ER 24 HR (Nifedipine) 60 Mg Tab 60 Mg PO BID 30 Days [hydrALAZINE] 100 MG Tab 100 Mg PO TID 30 Days Labetalol (Labetalol HCl) 300 Mg Tab 600 Mg PO BID 30 Days Family History Noncontributory Social History Denies smoking or alcohol history of marijuana use in the past Physical Exam Vital Signs Vital Signs Date Time Temp Pulse Resp B/P Pulse Ox O2 Delivery O2 Flow Rate FiO2 10/05/16 12:34 97.8 96 17 168/100 98 Room Air 10/05/16 11:31 81 17 180/100 98 Room Air 10/05/16 10:52 77 17 200/100 98 Room Air 10/05/16 10:19 18 97 Room Air 10/05/16 09:52 97.7 80 20 191/106 95 Room Air Physical Exam GENERAL: Well-nourished, well-developed patient. SKIN: Warm and dry. HEAD: Normocephalic. EYES: No scleral icterus. No injection or drainage. NECK: Supple, trachea midline. No JVD or lymphadenopathy. CARDIOVASCULAR: Regular rate and rhythm without murmurs, gallops, or rubs. RESPIRATORY: Breath sounds diminished at bases GASTROINTESTINAL: Abdomen soft, non-tender, nondistended. EXTREMITIES: No cyanosis, 3+ edema. AV fistula present NEUROLOGICAL: Awake, alert, and oriented x 3. Non-focal. Laboratory Laboratory Tests Test 10/05/16 12:00 Sodium Level 136 Potassium Level 6.2 Chloride Level 98 Carbon Dioxide Level 26.8 Anion Gap 11 Blood Urea Nitrogen 98 Creatinine 12.86 Estimat Glomerular Filtration 5 Rate Random Glucose 102 Calcium Level 7.8 Result Diagram: 10/05/16 1200 Assessment and Plan Problem List: (1) ESRD (end stage renal disease) on dialysis Plan: I have placed orders to dialyze him get 4-5 L AND continued to monitor his progress, patient plans to [facility] hemodialysis int[facility], he is told that he ran out of insurance authorization for his visit to [place] and he may not be accepted at [facility] Due to his poor compliance he is strongly advised to go back to [place] and get hemodialysis arrangements, she was discharged on blood pressure medications which he has not filled and I advised him to take his medications as prescribed. (2) Hyperkalemia Plan: Due to noncompliance with food (3) Hypertension Plan: Noncompliant with medications Cole Manjarrez MD Oct 05, 2016 14:05
== END 2016-10-05 18:39 | disposition home or self-care (01) ==
LOC: NEPC 09:48
DX: I12.0 Hypertensive chronic kidney disease with stage 5 chronic kidney disease or end stage renal disease (principal); E87.5 Hyperkalemia; Z99.2 Dependence on renal dialysis; I50.9 Heart failure, unspecified; Z91.14 Patient's other noncompliance with medication regimen
CPT/HCPCS: 80048; 90935; 96374; 99284; J7030; Q4081; G0257